=== PATIENT | female | born 1955 | race Caucasian/White ===

== ENCOUNTER 2020-12-20 15:15 | Outpatient (REF) | payer MEDICARE, MEDICAID, SELFPAY ==
--- NOTE | ~2020-12-20 | MM_ITS ---
EXAMINATION: MM SCREENING DIGITAL BREAST TOMOSYNTHESIS, BILATERAL CLINICAL INFORMATION: Screening. Asymptomatic. The lifetime risk of breast cancer based on the Tyrer-Cuzick Model is 11%. COMPARISON: Mammography: 08/03/2019, 06/20/2018, 02/06/2017 TECHNIQUE: Digital breast tomosynthesis is performed in both the craniocaudal and mediolateral oblique views along with computer-aided detection (CAD). Synthesized 2D images are generated from the tomosynthesis. FINDINGS: There are scattered areas of fibroglandular density (ACR BI-RADS breast composition Category b). There are no significant masses, abnormal calcifications, or other abnormalities. Parenchymal pattern is similar to prior exams. No developing density. Skin contours are smooth. There are 2 small stable circumscribed nodules mid inferior right breast. No significant changes. MM/MM tomosynthesis screening BI IMPRESSION: No mammographic evidence of malignancy. ASSESSMENT: BI-RADS 2: Benign RECOMMENDATION: Routine annual mammography screening. This patient's information was entered into a reminder system with a target due date for their next mammogram.
== END 2020-12-20 15:16 | disposition home or self-care (01) ==
LOC: HO.MAMMO 15:15
PROVIDERS: Visit Provider Internal Medicine
DX: Z12.31 Encounter for screening mammogram for malignant neoplasm of breast (principal)
CPT/HCPCS: 77063; 77067

== ENCOUNTER 2021-06-19 08:24 | Outpatient (REF) | payer MEDICARE, MEDICAID, SELFPAY ==
[2021-06-19 10:28] LABS: Hematocrit 46.1 % (37-47); Mean Corpuscular HGB Conc 32.5 g/dl (31.0-35.0); Mean Corpuscular Hemoglobin 29.1 pg (27.0-33.0); Mean Corpuscular Volume 89.3 fL (80-98); Mean Platelet Volume 10.3 fL (9.4-12.3); Platelet Count 306 X10*3/uL (160-400); Red Blood Count 5.16 X10*6/uL (4.20-5.50); White Blood Count 7.6 X10*3/uL (4.8-10.8)
[2021-06-19 10:59] LABS: Alanine Aminotransferase 10 U/L (0-31); Anion Gap 13 (12-20); Aspartate Amino Transferase 12 U/L (5-31); Bilirubin Total 0.4 mg/dL (0.0-1.0); Blood Urea Nitrogen 8 mg/dL (9-16); Calcium 9.3 mg/dL (8.4-10.2); Carbon Dioxide 30 mmol/L (22-29); Chloride 104 mmol/L (96-108); Estimated Glomerular Filt Rate > 60; Glucose Fasting 94 mg/dL (60-99); Potassium 4.6 mmol/L (3.3-5.1); Sodium 142 mmol/L (135-145); Total Protein 6.4 g/dL (6.5-8.0)
[2021-06-19 11:00] LABS: Alkaline Phosphatase 99 U/L (39-117); Cholesterol 197 mg/dL; HDL Cholesterol 45 mg/dL; LDL Cholesterol Calculated 120 mg/dl; Triglycerides 164 mg/dL
[2021-06-19 11:03] LABS: Estimated Average Glucose 123 mg/dL; Hemoglobin A1c % 5.9 %
[2021-06-19 11:32] LABS: TSH reflex Free T4 1.51 uIU/mL (0.32-4.0)
== END 2021-06-19 08:25 | disposition home or self-care (01) ==
LOC: HO.10HDL 08:24
PROVIDERS: Visit Provider General Practice
DX: I10 Essential (primary) hypertension (principal)
CPT/HCPCS: 36415; 80053; 80061; 83036; 84443; 85027

== ENCOUNTER → 2021-06-22 08:23 | Outpatient (REF) | payer MEDICARE, MEDICAID, SELFPAY ==
--- NOTE | 2021-06-22 08:27 | CA_ITS ---
Transthoracic Echocardiogram Patient (Last, First, Middle): Elena Storey E Gender: Female Date of : 1955 Age: 65 Procedure Date: 06/22/2021 Procedure Type: Transthoracic Echocardiogram Location: OP Height: 165.1 cm Weight: 82.56 kg BSA: 1.90 m2 Heart Rate: bpm BP: 138 / 78 mmHg Director Of Product Management: JOSHUA Referring MD: Dorothy Llanes NP Emergency Room Registered Nurse: Red Casper MD Symptoms: HEART MUMUR Study Quality: Technically Difficult ECG Rhythm: Sinus Conclusions: - 1. Normal LV systolic function with mild LVH with impaired relaxation filling pattern 2. Mild aortic stenosis and regurgitation 3. Mild mitral regurgitation 4. Normal RV systolic pressure 5. No pericardial effusion Findings Left Ventricle Normal left ventricular size and systolic function. There is mildly increased left ventricular wall thickness. The visually estimated ejection fraction is between 55-60%. Spectral Doppler is indicative of an impaired relaxation filling pattern. E/E prime ratio is between 8 and 15 consistent with indeterminate filling pressures. There is moderate septal asymmetric hypertrophy. Right Ventricle Normal right ventricular cavity size and systolic function. Atria The left atrium is normal in size. There is lipomatous hypertrophy of the interatrial septum. There is no evidence of interatrial shunt. The right atrium is normal in size. Aortic Valve The aortic valve was not well visualized. There is mild calcification of the aortic valve. There is mild aortic valve stenosis. There is mild aortic valve regurgitation. Mitral Valve There is mild anterior mitral leaflet thickening. There is mild mitral annular calcification. There is trace mitral valve regurgitation. There is no mitral valve stenosis. Pulmonic Valve The pulmonic valve was not well visualized. Tricuspid Valve Likely normal tricuspid valve structure and function. There is mild tricuspid valve regurgitation. The right ventricular systolic pressure is normal. The right ventricular systolic pressure is 26 mmHg. Normal right atrial pressure. There is no evidence of pulmonary hypertension. Great Vessels All visible segments of the aorta are normal in size. The pulmonary artery was not well visualized. Venous The inferior vena cava is normal in size and collapses greater than 50% with inspiration. Pericardium/Pleural There is no evidence of pericardial effusion. Prior Study Comparison No prior study available for comparison. Measurements 2D Linear Measurements IVSd: 1.45 0.6-0.9/0.6-1.0 cm LVIDd: 4.08 3.9-5.3/4.2-5.9 cm LVIDd Index: 2.15 2.4-3.2/2.2-3.1 cm/m2 LVIDs: 2.51 2.0-3.6 cm LVPWd: 1.05 0.7-1.1 cm LA Diam: 3.20 2.7-3.8/3.0-4.0 cm LAIDs Index: 1.68 1.5-2.3 cm/m2 LV Mass: 225.65 67-162/88-224 g LV Mass Index: 118.76 43-95/49-115 g/m2 LVOT Diam: 1.80 3.0+(-)1.3 cm 2D Systolic Function EF 4C: 56.10 >55% EF 2C: 61.40 >55% EF BiP: 58.70 >55% Mitral Valve MV Pk E: 1.06 MV PK A: 1.04 MV Decel Time: 192.00 E/A: 1.00 E'Lateral: 8.59 E'Medial: 7.29 E/E' Med: 14.50 E/E' Lat: 12.30 PHT: 56.00 MVA PHT: 3.93 Decel Pinal: 5.50 Aortic Valve AoV Pk Felix: 2.19 AoV Mn Felix: 1.60 AoV VTI: 0.47 AoV Pk Grad: 19.00 Aov Mn Grad: 11.00 RIGOBERTO Cont.VTI: 1.09 AI Pk Felix: 3.60 AI Pinal: 1.86 LVOT LVOT Pk Felix: 0.98 LVOT Mn Felix: 0.63 LVOT VTI: 0.20 LVOT Pk Grad: 4.00 LVOT Mn Grad: 2.00 LVOT Diam: 1.80 LVOT Area: 2.54 Diastolic Function MV Pk E: 1.06 MV Pk A: 1.04 E/A: 1.00 E'Medial: 7.29 E/E' Med: 14.50 E' Laterial: 8.59 E/E' Lat: 12.30 Right Ventricle TAPSE (mm): 2.48 Tricuspid Valve TR Pk Felix: 2.39 TR Pk Grad: 23.00 RA Press: 3.00 RVSP: 26.00 Great Vessels Aorta Ao Asc: 3.40 2.1-3.4 cm Updated in Other Vendor System with Status of Final Red Casper MD electronically signed on 06/22/2021 12:41:51 PM with status of Final
== END ==
LOC: HO.CARD 08:23
PROVIDERS: PCP General Practice; Visit Provider Nurse Practitioner Primary Care
DX: R01.1 Cardiac murmur, unspecified (principal)
CPT/HCPCS: 93306

== ENCOUNTER 2022-01-11 07:53 | Outpatient (REF) | payer MEDICARE, MEDICAID, SELFPAY ==
--- NOTE | ~2022-01-11 | MM_ITS ---
EXAMINATION: MM SCREENING DIGITAL BREAST TOMOSYNTHESIS, BILATERAL CLINICAL INFORMATION: Screening. Asymptomatic. Family history breast cancer, mother, maternal aunt. The lifetime risk of breast cancer based on the Tyrer-Cuzick Model is 11%. COMPARISON: Mammography: 12/20/2020, 08/03/2019, 06/20/2018 TECHNIQUE: Digital breast tomosynthesis is performed in both the craniocaudal and mediolateral oblique views along with computer-aided detection (CAD). Synthesized 2D images are generated from the tomosynthesis. FINDINGS: There are scattered areas of fibroglandular density (ACR BI-RADS breast composition Category b). There are no significant masses, abnormal calcifications, or other abnormalities. Parenchymal pattern is similar to prior studies. No developing density. No significant changes. MM/MM tomosynthesis screening BI IMPRESSION: No mammographic evidence of malignancy. ASSESSMENT: BI-RADS 2: Benign RECOMMENDATION: Routine annual mammography screening. This patient's information was entered into a reminder system with a target due date for their next mammogram.
== END 2022-01-11 07:54 | disposition home or self-care (01) ==
LOC: HO.MAMMO 07:53
PROVIDERS: PCP General Practice; Visit Provider General Practice
DX: Z12.31 Encounter for screening mammogram for malignant neoplasm of breast (principal)
CPT/HCPCS: 77063; 77067

== ENCOUNTER 2022-07-10 08:31 | Outpatient (REF) | payer MEDICARE, MEDICAID, SELFPAY ==
[2022-07-10 10:47] LABS: Alanine Aminotransferase 11 U/L (0-31); Alkaline Phosphatase 106 U/L (39-117); Anion Gap 13 (12-20); Aspartate Amino Transferase 12 U/L (5-31); Bilirubin Total 0.4 mg/dL (0.0-1.0); Blood Urea Nitrogen 8 mg/dL (9-16); Calcium 9.3 mg/dL (8.4-10.2); Carbon Dioxide 31 mmol/L (22-29); Chloride 103 mmol/L (96-108); Cholesterol 247 mg/dL; Estimated Glomerular Filt Rate > 60; Glucose Fasting 99 mg/dL (60-99); HDL Cholesterol 43 mg/dL; LDL Cholesterol Calculated 168 mg/dl; Potassium 4.7 mmol/L (3.3-5.1); Sodium 142 mmol/L (135-145); Total Protein 6.5 g/dL (6.5-8.0); Triglycerides 180 mg/dL
[2022-07-10 11:02] LABS: Estimated Average Glucose 117 mg/dL; Hemoglobin A1C 152.6626 umol/L; Hemoglobin A1c % 5.7 %
== END 2022-07-10 08:32 | disposition home or self-care (01) ==
LOC: HO.10HDL 08:31
PROVIDERS: Visit Provider General Practice
DX: E78.5 Hyperlipidemia, unspecified (principal); I10 Essential (primary) hypertension
CPT/HCPCS: 36415; 80053; 80061; 83036

== ENCOUNTER 2022-11-02 13:45 | Outpatient (REF) | payer MEDICARE, MEDICAID, SELFPAY ==
--- NOTE | ~2022-11-02 | CT_ITS ---
EXAMINATION: CT CHEST SCREENING CLINICAL INFORMATION: Smoker one pack per day 50 years. COMPARISON: Chest x-ray 06/23/2015 TECHNIQUE: Multidetector volumetric CT imaging of the chest is performed without contrast using low dose technique. Additional 2D coronal and sagittal reformatted images and axial 3D maximum intensity projection (MIP) images are generated on the CT workstation. This CT examination was performed using dose optimization techniques as appropriate, variously including the following: *Automated exposure control *Adjustment of mA and/or kV according to patient size (this includes techniques or standardized protocols for targeted exams where dose is matched to indication/reason for exam; i.e. extremities or head) *Use of iterative reconstruction technique DLP: 59 mGy-cm FINDINGS: LUNGS: The lungs are well-expanded and clear of acute pneumonic process. No pulmonary nodules, mass or consolidation seen. Minimal atelectatic changes or scarring seen in the lingula. MEDIASTINUM: The thyroid lobes are symmetric and normal. The central trachea and the bronchi widely patent. Heart size and the great vessels are normal caliber. Small shotty lymph nodes are seen in the mediastinum. No pericardial effusion seen. CORONARY ARTERY CALCIFICATION: Trace coronary artery calcifications are visualized. PLEURA: There is no pleural effusion, thickening or calcification. AXILLA: There are small shotty bilateral axillary lymph nodes.. UPPER ABDOMEN: Visualized liver, spleen, pancreas and right adrenal glands are unremarkable. There is a left adrenal 1.9 cm lesion measuring 0.91 Hounsfield units, likely benign. OSSEOUS STRUCTURES: Bone windows reveal no gross bony abnormality seen. CT/CT lung screening IMPRESSION: Unremarkable CT chest exam. ASSESSMENT: Lung-RADS category 1, benign RECOMMENDATION: Low-dose annual CT chest
== END 2022-11-02 13:46 | disposition home or self-care (01) ==
LOC: HO.CT 13:45
PROVIDERS: Visit Provider Physician Assistant Medical
DX: F17.210 Nicotine dependence, cigarettes, uncomplicated (principal)
CPT/HCPCS: 71271; G0296

== ENCOUNTER 2023-01-17 07:57 | Outpatient (REF) | payer MEDICARE, MEDICAID, SELFPAY ==
--- NOTE | ~2023-01-17 | MM_ITS ---
EXAMINATION: MM SCREENING DIGITAL BREAST TOMOSYNTHESIS, BILATERAL CLINICAL INFORMATION: Screening. Asymptomatic. The lifetime risk of breast cancer based on the Tyrer-Cuzick Model is 10.1%. COMPARISON: Mammography: January 11, 2022 and studies dating back to May 11, 2015 TECHNIQUE: Digital breast tomosynthesis is performed in both the craniocaudal and mediolateral oblique views along with computer-aided detection (CAD). Synthesized 2D images are generated from the tomosynthesis. FINDINGS: The breasts are heterogeneously dense, which may obscure small masses (ACR BI-RADS breast composition Category c). There are no significant masses, abnormal calcifications, or other abnormalities. MM/MM tomosynthesis screening BI IMPRESSION: No significant changes from prior exam. ASSESSMENT: BI-RADS 1: Negative RECOMMENDATION: Routine annual mammography screening. This patient's information was entered into a reminder system with a target due date for their next mammogram.
== END 2023-01-17 07:58 | disposition home or self-care (01) ==
LOC: HO.MAMMO 07:57
PROVIDERS: PCP General Practice; Visit Provider General Practice
DX: Z12.31 Encounter for screening mammogram for malignant neoplasm of breast (principal)
CPT/HCPCS: 77063; 77067

== ENCOUNTER 2023-04-05 07:50 | Outpatient (REF) | payer MEDICARE, MEDICAID, SELFPAY ==
--- NOTE | 2023-04-05 | PFT_ITS ---
Forced vital capacity is 62%, FEV1 45%, FEV1/FVC ratio is 56. [id number] 21% and MVV is 40%. Post bronchodilator therapy, there is a slight improvement in [id number]. Total lung capacity 91%. Residual volume 115%. DLCO of 54% CONCLUSION: Severe obstructive airway disorder. Minimal improvement after bronchodilator therapy is noted. Clinical correlation recommended. MD LARISA Burciaga/JOAN / [id number]
== END 2023-04-05 07:51 | disposition home or self-care (01) ==
LOC: HO.RESP 07:50
PROVIDERS: PCP General Practice; Visit Provider General Practice
DX: J44.9 Chronic obstructive pulmonary disease, unspecified (principal)
CPT/HCPCS: 94060; 94727; 94729

== ENCOUNTER → 2023-04-05 08:00 | Outpatient (BNV) | payer MEDICARE, MEDICAID, SELFPAY | PROVIDERS: PCP General Practice; Visit Provider Internal Medicine | DX: J44.9 Chronic obstructive pulmonary disease, unspecified (principal) | CPT/HCPCS: 94060; 94727; 94729 ==

== ENCOUNTER 2023-04-08 10:53 | Outpatient (REF) | payer MEDICARE, MEDICAID, SELFPAY | END 2023-04-08 10:54 | disposition home or self-care (01) | LOC: HO.HHCX 10:53 | PROVIDERS: Visit Provider Emergency Medicine | DX: J44.1 Chronic obstructive pulmonary disease with (acute) exacerbation (principal); Z20.822 Contact with and (suspected) exposure to COVID-19 | CPT/HCPCS: 71046; 87636 ==

== ENCOUNTER 2023-04-08 20:22 | Outpatient (REF) | payer MEDICARE, MEDICAID, SELFPAY | END 2023-04-08 20:23 | disposition home or self-care (01) | LOC: HO.HHCLNP 20:22 | PROVIDERS: Visit Provider Emergency Medicine | DX: Z13.89 Encounter for screening for other disorder (principal) | CPT/HCPCS: 87636 ==

== ENCOUNTER 2023-11-11 11:49 | Outpatient (REF) | payer MEDICARE, MEDICAID, SELFPAY ==
--- NOTE | ~2023-11-11 | XR_ITS ---
EXAMINATION: XR CHEST CLINICAL INFORMATION: COPD. COMPARISON: None available. TECHNIQUE: 2 views of the chest were obtained. FINDINGS: Mild hyperinflation of the lungs, consistent with reported history of COPD. No focal infiltrate, effusion, pneumothorax is seen. The heart appears normal in size. The mediastinum and bones appear unremarkable. Mildly atherosclerotic, uncoiled aorta, raising the possibility of hypertension. XR/XR chest 2V IMPRESSION: No acute finding.
== END 2023-11-11 11:50 | disposition home or self-care (01) ==
LOC: HO.HHCX 11:49
PROVIDERS: Visit Provider Registered Nurse
DX: J44.1 Chronic obstructive pulmonary disease with (acute) exacerbation (principal)
CPT/HCPCS: 71046

== ENCOUNTER 2023-11-27 10:30 | Outpatient (REF) | payer MEDICARE, MEDICAID, SELFPAY ==
--- NOTE | ~2023-11-27 | CT_ITS ---
EXAMINATION: CT CHEST LOW-DOSE SCREENING WITHOUT CONTRAST HISTORY: Asymptomatic patient meeting criteria for lung screening. No history of lung carcinoma. PATIENT PACK-YEAR HISTORY: 52 Current Smoker: Yes If former smoker, years since quitting: Not applicable COMPARISON: CT lung screening on 11/02/2022 Multidetector volumetric non-contrast CT imaging of the chest was obtained on a Siemens Definition 64 scanner using low-dose screening CT technique. Axial thin section 0.625 mm reformations in soft tissue and lung windows were obtained. Sagittal and coronal reformations were obtained. Axial MIP images were also created and reviewed. RECONSTRUCTED WIDTH: 1.25 mm x 1.[address] examination was performed using dose optimization techniques as appropriate, variously including the following: *Automated exposure control *Adjustment of mA and/or kV according to patient size (this includes techniques or standardized protocols for targeted exams where dose is matched to indication/reason for exam; i.e. extremities or head) *Use of iterative reconstruction technique TOTAL EXAM DLP: 46.17 mGy-cm CTDIvol: 1.08 mGy FINDINGS: LUNGS: Lungs bilaterally symmetrically expanded. No effusion or pneumothorax. Central airways patent. -Nodule #1 (Series 6, image 232): 5.1 mm solid nodule, left lower lobe superior segment, previously 5 mm. -Nodule #2 (Series 6, image 390): 3.8 mm solid nodule, lateral pleural border of left lower lobe lateral basal segment, previously not present. -At least one micronodule (nodule measuring less than 4 mm) is present without interval change. LYMPHATIC STRUCTURES: No mediastinal, hilar or axillary adenopathy or free fluid collection. THYROID GLAND: Unremarkable to the extent seen. CARDIOVASCULAR STRUCTURES: Aortic and heart size normal. Mild coronary artery calcifications. No pericardial effusion. UPPER ABDOMEN: Unchanged left adrenal benign adenoma measuring 1.5 x 2.2 cm in size, mean attenuation of 1.1 Hounsfield units. OSSEOUS STRUCTURES: No suspicious focal findings. SPINAL COMPRESSION: Absent. CT/CT lung screening IMPRESSION: No findings suspicious for malignancy/pulmonary nodule(s)/other. LUNG-RADS CATEGORY ASSESSMENT: 2: Benign INCIDENTAL FINDINGS (S CATEGORY): Finding: No incidental findings. Significance category: Normal or normal variant. RECOMMENDATION: Low dose lung CT. overall in 1 year. Visual estimate of coronary calcified plaque burden: Mild. However, this exam cannot replace a dedicated cardiac CT calcium score for accurate assessment.
== END 2023-11-27 10:31 | disposition home or self-care (01) ==
LOC: HO.CT 10:30
PROVIDERS: PCP General Practice; Visit Provider Physician Assistant Medical
DX: Z12.2 Encounter for screening for malignant neoplasm of respiratory organs (principal); F17.210 Nicotine dependence, cigarettes, uncomplicated
CPT/HCPCS: 71271

== ENCOUNTER 2024-01-20 09:00 | Outpatient (REF) | payer MEDICARE, MEDICAID, SELFPAY ==
[2024-01-20 11:35] LABS: MANUAL DIFF FLAG NO
[2024-01-20 11:54] LABS: Basophils Percent Auto 0.6 % (0-2); Eosinophils Absolute Auto 0.2 X10*3/uL (0.0-0.4); Eosinophils Percent Auto 2.4 % (0-4); Hematocrit 47.9 % (37.0-47.0); Hemoglobin 15.4 g/dl (12.0-16.0); Imm Gran Abs Auto 0.01 X10*3/uL (0.00-0.03); Imm Gran Pct Auto 0.1 % (0.0-0.4); Lymphocytes Absolute Auto 2.9 X10*3/uL (1.2-4.9); Lymphocytes Percent Auto 40.9 % (20-40); Mean Corpuscular HGB Conc 32.2 g/dl (31.0-35.0); Mean Corpuscular Hemoglobin 28.8 pg (27.0-33.0); Mean Corpuscular Volume 89.7 fL (80.0-98.0); Mean Platelet Volume 10.5 fL (9.4-12.3); Monocytes Absolute Auto 0.4 X10*3/uL (0.1-1.2); Monocytes Percent Auto 6.1 % (2-11); Neutrophils Absolute Auto 3.5 x10*3/uL (2.0-8.3); Neutrophils Percent Auto 49.9 % (45-73); Platelet Count 308 X10*3/uL (160-400); Red Blood Count 5.34 X10*6/uL (4.20-5.50); Red Cell Distribution Width 13.6 % (11.0-16.0); White Blood Count 7.1 X10*3/uL (4.8-10.8)
[2024-01-20 12:24] LABS: Cholesterol 202 mg/dL (<200); HDL Cholesterol 52 mg/dL (>40); LDL Cholesterol Calculated 123 mg/dL (<100); Triglycerides 137 mg/dL (<150)
== END 2024-01-20 09:01 | disposition home or self-care (01) ==
LOC: HO.HHCL 09:00
PROVIDERS: Visit Provider General Practice
DX: E78.49 Other hyperlipidemia (principal); L65.9 Nonscarring hair loss, unspecified
CPT/HCPCS: 36415; 80061; 85025

== ENCOUNTER 2024-01-21 09:29 | Outpatient (REF) | payer MEDICARE, MEDICAID, SELFPAY ==
--- NOTE | ~2024-01-21 | MM_ITS ---
EXAMINATION: MM SCREENING DIGITAL BREAST TOMOSYNTHESIS, BILATERAL CLINICAL INFORMATION: Screening. Asymptomatic. Family history of breast cancer in mother, maternal aunt. COMPARISON: Mammography: 01/17/2023, 01/11/2022, 12/20/2020, 08/03/2019, 06/20/2018 TECHNIQUE: Digital breast tomosynthesis is performed in both the craniocaudal and mediolateral oblique views along with computer-aided detection (CAD). Synthesized 2D images are generated from the tomosynthesis. A second right MLO full-field view was provided. FINDINGS: The breasts are heterogeneously dense, which may obscure small masses (ACR BI-RADS breast composition Category c). Parenchyma is borderline category B. There are 2 stable small circumscribed nodules in the mid inferior right breast, and 6:00 axis left breast. There are no suspicious masses, suspicious grouped calcifications, or areas of architectural distortion in either breast. The parenchymal pattern is stable from prior exams. No skin or axillary abnormalities. MM/MM tomosynthesis screening BI IMPRESSION: No mammographic evidence of malignancy. ASSESSMENT: BI-RADS BI-RADS 2 - Benign Findings RECOMMENDATION: Routine annual mammography screening. 1 year F/U This examination should not preclude the clinical evaluation of a suspicious palpable abnormality. This patient's information was entered into a reminder system with a target due date for their next mammogram.
== END 2024-01-21 09:30 | disposition home or self-care (01) ==
LOC: HO.MAMMO 09:29
PROVIDERS: PCP General Practice; Visit Provider General Practice
DX: Z12.31 Encounter for screening mammogram for malignant neoplasm of breast (principal)
CPT/HCPCS: 77063; 77067

== ENCOUNTER → 2024-01-21 09:45 | Outpatient (BNV) | payer MEDICARE, MEDICAID, SELFPAY | PROVIDERS: PCP General Practice; Visit Provider Radiology Diagnostic Radiology | DX: Z12.31 Encounter for screening mammogram for malignant neoplasm of breast (principal) | CPT/HCPCS: 77063; 77067 ==

== ENCOUNTER 2024-02-17 09:53 | Outpatient (AMB) | payer MEDICARE, MEDICAID, SELFPAY ==
--- NOTE | 2024-02-17 09:58 | A.OFFVIS_ITS ---
Vital Signs 02/17/24 10:01 Height 5 ft 4 in Weight 160 lb 14.999 oz BMI 27.6 BP 146/78 H Blood Pressure Location Rt brachial Position Sitting Pulse 72 Pulse Source Pulse Oximeter Pulse Oximetry (%) 94 Oxygen Delivery Method Room Air Intake Visit Reasons: copd Allergies sulfamethoxazole [From BACTRIM DS] Allergy (Unknown, Unverified 02/17/24 10:04) UNKNOWN trimethoprim [From BACTRIM DS] Allergy (Unknown, Unverified 02/17/24 10:04) UNKNOWN HPI HPI copd: Details: Elena is a pleasant 68 year old female, current smoker with 30 pack year history with underlying COPD, HTN and hyperlipidemia. She was referred by PCP for pulmonary evaluation. She has been moderately controlled on Breo 100 mcg, ventolin MDI and atrovent MDI. Today she reports worsening control over the last two weeks with increased dyspnea, producitve cough with white sputum, wheezing and chest tightness. She reports symptoms started with increased allergic symptoms with no recent allergy testing. She denies any recent need for prednisone or antibiotics. She had PFT last year, report below. She is a part of the lung cancer screening program, full report below. She reports father, smoker, with lung cancer. She denies any occupational exposures. [facility] Medical History (Updated 02/17/24 @ 11:31 by Denise Tirado LPN) Nicotine dependence, cigarettes, uncomplicated Heart murmur Vitamin D deficiency Macular degeneration COPD (chronic obstructive pulmonary disease) HLD (hyperlipidemia) HTN (hypertension) Surgical History (Updated 10/30/22 @ 13:37 by Nohelia Colvin PA-C) History of endoscopy Family History (Updated 11/02/22 @ 13:33 by Nohelia Colvin PA-C) Father Lung cancer Social History (Updated 02/17/24 @ 10:04 by Francesca Mcginnis CMA) Patient Tobacco Use Status: Current everyday Tobacco user Tobacco use type: Cigarette Cigarettes Per Day: 8 Years Smoked: onset 17yo, 1/2ppd-1ppd x 51yrs, 30phy Review of Systems Const Denies chills, Denies excessive sweating, Denies fever(s) and Denies night sweats Eyes Denies dry eyes and Denies irritation ENT Reports Normal hearing present and Denies sore throat Card Denies chest pain, Denies chest pain at rest, Denies chest pain with activity, Denies claudication, Denies leg edema, Denies orthopnea and Denies paroxysmal nocturnal dyspnea Resp Denies chest congestion, Denies excessive phlegm production, Denies pain on inspiration, Denies pain with cough and Denies stridor Musc Denies myalgias Neuro Reports Normal hearing present Endo Denies excessive sweating Sid/Lymph Denies lymphadenopathy Aller/Immun Denies seasonal rhinorrhea Physical Exam Vital Signs: Last Vital Signs Pulse 72 02/17/24 10:01 BP 146/78 H 02/17/24 10:01 Pulse Ox 94 02/17/24 10:01 Oxygen Delivery Method Room Air 02/17/24 10:01 BMI result Body Mass Index 27.6 Const General: cooperative, no acute distress, well developed and alert Nutritional Appearance: obese Orientation/consciousness: patient oriented x3 Limitations: no limitations HEENT Head: Yes normal to inspection, Yes normocephalic and Yes atraumatic Ears: hearing grossly normal bilaterally and external ears normal Eyes General: appearance normal, both eyes and all related structures Sclerae: sclerae normal EOM: EOMs intact bilaterally Neck Neck: Yes normal visual inspection and Yes no lymphadenopathy Lymphatic: no lymphadenopathy noted Chest Chest palpation & inspection: normal inspection of the chest Resp Effort & Inspection: normal respiratory effort, able to speak in complete sentences, no audible wheezes, Actively coughing Quality: actively coughing, no stridor, not tachypneic, no tripod positioning and no use of accessory muscles Auscultation: wheezes and diminished lung sounds Cardio Jugular venous distension: no JVD Rate: regular rate Rhythm: regular rhythm Skin Other: warm, dry General skin exam: no rashes or lesions noted Neuro General: patient oriented x3 Cranial nerves: Yes Normal hearing present Cognition (Neuro): normal cognition Gait exam (Neuro): Normal gait present Extrem General: Yes normal to inspection, Yes capillary refill normal, Yes no clubbing, cyanosis or edema and Yes no pedal edema Psych Appearance: grossly normal and well kempt Speech and movement: Normal speech and movement present and Clear speech present Affect: normal affect Attitude: cooperative Thought process: Normal thought process present Thought content: Normal thought content present Insight: Good insight present (Psych) Judgement: Good judgement present (Psych) Office Procedures Nebulizer Treatment Nebulizer Treatment 29533-Pnenaugdp/MDI RX initial, or Nebulizer Subsequent Treatment Office Meds ipratropium 0.5 mg-albuterol 3 mg (2.5 mg base)/3 mL nebulization mary Performing Provider: Serene Rose NP Performing Location: [facility] Administered by: Denise Tirado LPN on 02/17/24 11:31 Dose Route Admin Location Dispensed Lot Number Expiration Date [facility] Packaging Assembler 3 mL inhalation 3 mL [id number] 07/30/25 08355-917-52 Givit Results Reviewed Results Reviewed: [address] [address] [address] Scan Report Signed Patient: Elena Storey MR#: [id number] : 1955 Acct:[id number] Age/Sex: 67 / F ADM Date: 11/27/23 Loc: .CT Attending Dr: Nohelia Colvin PA-C Ordering Physician: Serene Rose NP Date of Service: 11/27/23 Procedure(s): CT lung screening Accession Number(s): [id number] cc: Melisa Watkins; Serene Rose NP~ EXAMINATION: CT CHEST LOW-DOSE SCREENING WITHOUT CONTRAST HISTORY: Asymptomatic patient meeting criteria for lung screening. No history of lung carcinoma. PATIENT PACK-YEAR HISTORY: 52 Current Smoker: Yes If former smoker, years since quitting: Not applicable COMPARISON: CT lung screening on 11/02/2022 [address]idetector volumetric non-contrast CT imaging of the chest was obtained on a Siemens Definition 64 scanner using low-dose screening CT technique. Axial thin section 0.625 mm reformations in soft tissue and lung windows were obtained. Sagittal and coronal reformations were obtained. Axial MIP images were also created and reviewed. RECONSTRUCTED WIDTH: 1.25 mm x 1.[address] examination was performed using dose optimization techniques as appropriate, variously including the following: *Automated exposure control *Adjustment of mA and/or kV according to patient size (this includes techniques or standardized protocols for targeted exams where dose is matched to indication/reason for exam; i.e. extremities or head) *Use of iterative reconstruction technique TOTAL EXAM DLP: 46.17 mGy-cm CTDIvol: 1.08 mGy FINDINGS: LUNGS: Lungs bilaterally symmetrically expanded. No effusion or pneumothorax. Central airways patent. -Nodule #1 (Series 6, image 232): 5.1 mm solid nodule, left lower lobe superior segment, previously 5 mm. -Nodule #2 (Series 6, image 390): 3.8 mm solid nodule, lateral pleural border of left lower lobe lateral basal segment, previously not present. -At least one micronodule (nodule measuring less than 4 mm) is present without interval change. LYMPHATIC STRUCTURES: No mediastinal, hilar or axillary adenopathy or free fluid collection. THYROID GLAND: Unremarkable to the extent seen. CARDIOVASCULAR STRUCTURES: Aortic and heart size normal. Mild coronary artery calcifications. No pericardial effusion. UPPER ABDOMEN: Unchanged left adrenal benign adenoma measuring 1.5 x 2.2 cm in size, mean attenuation of 1.1 Hounsfield units. OSSEOUS STRUCTURES: No suspicious focal findings. SPINAL COMPRESSION: Absent. CT/CT lung screening IMPRESSION: No findings suspicious for malignancy/pulmonary nodule(s)/other. LUNG-RADS CATEGORY ASSESSMENT: 2: Benign INCIDENTAL FINDINGS (S CATEGORY): Finding: No incidental findings. Significance category: Normal or normal variant. RECOMMENDATION: Low dose lung CT. overall in 1 year. Visual estimate of coronary calcified plaque burden: Mild. However, this exam cannot replace a dedicated cardiac CT calcium score for accurate assessment. Dictated By: Allan Suarez Signed By: <Electronically signed by Allan Suarez in OV> 11/28/23 1554 DD/ 1134 TD/TT: Rn Chemical Dependency: Assessment & Plan Assessment & Plan (1) COPD (chronic obstructive pulmonary disease): Code(s): J44.9 - Chronic obstructive pulmonary disease, unspecified Category: Medical (2) Environmental allergies: Code(s): Z91.09 - Other allergy status, other than to drugs and biological substances Category: Medical (3) Nicotine dependence, cigarettes, uncomplicated: Comment: (current smoker - onset 17yo, 1/2ppd-1ppd x 49yrs, 30phy, +fam hx lung ca) Code(s): F17.210 - Nicotine dependence, cigarettes, uncomplicated Category: Medical Plan Elena's symptoms are likely related to underlying COPD. PFT revealed severe COPD with DLCO 54%. Chest CT revealed multiple nodules <5 mm. Will have repeat chest CT in one year with the lung cancer screening program. At this time, patient presents with COPD exacerbation, will treat with zpak and prednisone. Patient also notes significant post nasal drip, will trial ipratropium nasal spray Will also send for RAST to assess for allergic component. At baseline, patient report good control of symptoms on Breo. Will consider increasing switching to Trelegy. All questions were answered and patient is in agreement of plan. Will follow up in 4 weeks or sooner if needed. Orders: Orders Resp Allergy Profile Region I 02/17/24 Z.09 - Other allergy status, other than to drugs and biological substances Complete Blood Count Auto Diff 02/17/24 Z. - Other allergy status, other than to drugs and biological substances AMB Nebulizer Treatment 02/17/24 J44.9 - Chronic obstructive pulmonary disease, unspecified Immunoglobulin E 02/17/24 Z. - Other allergy status, other than to drugs and biological substances Medications: New ipratropium bromide administer into each nostril 1 spray intranasal BID 30 mL 0RF ipratropium-albuterol 0.5 mg-3 mg(2.5 mg base)/3 mL 3 mL inhalation BID PRN 180 mL 0RF wheezing azithromycin For 250 mg dose pack: take 500 mg today (day 1), then 250 mg for 4 days (days 2-5) PO 6 tabs 0RF prednisone 40 mg (2 x 20 mg) PO DAILY 10 tabs 0RF Coding Level of Care Code New Pt Level 4 (57127) Diagnoses COPD (chronic obstructive pulmonary disease) J44.9 Environmental allergies Z91.09 Nicotine dependence, cigarettes, uncomplicated F17.210 CPT Codes Nebulizer Treatment - Nebulizer Treatment, initial or subsequent: 93407- Nebulizer/MDI RX initial, or Nebulizer Subsequent Treatment ([id number])
[2024-02-17 10:01] VITALS: BP 146/78; PULSE 72; O2SAT 94; BMI 27.6
== END 2024-02-17 11:07 | disposition home or self-care (01) ==
PROVIDERS: PCP General Practice; Visit Provider Nurse Practitioner Family
DX: J44.9 Chronic obstructive pulmonary disease, unspecified (principal); Z91.09 Other allergy status, other than to drugs and biological substances; F17.210 Nicotine dependence, cigarettes, uncomplicated
CPT/HCPCS: 99204

== ENCOUNTER 2024-02-17 09:53 | Outpatient (REF) | payer MEDICARE, MEDICAID, SELFPAY ==
[2024-02-17 11:26] LABS: MANUAL DIFF FLAG NO
[2024-02-17 11:52] LABS: Basophils Percent Auto 0.4 % (0-2); Eosinophils Absolute Auto 0.2 X10*3/uL (0.0-0.4); Eosinophils Percent Auto 1.9 % (0-4); Hematocrit 46.1 % (37.0-47.0); Hemoglobin 15.4 g/dl (12.0-16.0); Imm Gran Abs Auto 0.02 X10*3/uL (0.00-0.03); Imm Gran Pct Auto 0.2 % (0.0-0.4); Lymphocytes Absolute Auto 2.8 X10*3/uL (1.2-4.9); Lymphocytes Percent Auto 31.4 % (20-40); Mean Corpuscular HGB Conc 33.4 g/dl (31.0-35.0); Mean Corpuscular Volume 89.9 fL (80.0-98.0); Monocytes Absolute Auto 0.5 X10*3/uL (0.1-1.2); Neutrophils Absolute Auto 5.5 x10*3/uL (2.0-8.3); Neutrophils Percent Auto 61.1 % (45-73); Platelet Count 280 X10*3/uL (160-400); Red Blood Count 5.13 X10*6/uL (4.20-5.50); Red Cell Distribution Width 13.2 % (11.0-16.0)
[2024-02-19 22:04] LABS: Class Alternaria alternata 0; Class Aspergillus fumigatus 0; Class Bermuda Grass 0; Class Birch 0; Class Cat Dander 0; Class Cladosporium herbarum 0; Class Cockroach 0; Class Common Ragweed 0; Class Cottonwood 0; Class Derm. pterony 0; Class Dermatophagoides farinae 0; Class Dog Dander 0; Class Elm 0; Class Maple Box Elder 0; Class Mountain Cedar 0; Class Mouse Urine Protein 0; Class Mugwort 0; Class Oak 0; Class Penicillium crysogenum 0; Class Rough Pigweed 0; Class Sheep Sorrel 0; Class Sycamore 0; Class Timothy Grass 0; Class Walnut Tree 0; Class White Ash 0; Class White Mulberry 0; D001 IgE D pteronyssinus <0.10 kU/L; D002 - IgE D farinae <0.10 kU/L; E001 - IgE Cat Dander <0.10 kU/L; E005 - IgE Dog Dander <0.10 kU/L; E072-IgE Mouse Urine <0.10 kU/L; G002 IgE Bermuda Grass <0.10 kU/L; G006 - IgE Timothy Grass <0.10 kU/L; I006-IgE Cockroach, German <0.10 kU/L; Immunoglobulin E 27 kU/L (<OR=114); M001 IgE Penicillium chrysogen <0.10 kU/L; M002 - IgE Cladosporium herbar <0.10 kU/L; M003 - IgE Aspergillus fumigat <0.10 kU/L; M006 - IgE Alternaria alternat <0.10 kU/L; T001 IgE Maple/Box Elder <0.10 kU/L; T003 IgE Common Silver Birch <0.10 kU/L; T006 - IgE Cedar, Mountain <0.10 kU/L; T007 - IgE Oak, White <0.10 kU/L; T008 IgE Elm, American <0.10 kU/L; T010 - IgE Walnut <0.10 kU/L; T011 - IgE Maple Leaf Sycamore <0.10 kU/L; T014 - IgE Cottonwood <0.10 kU/L; T015 - IgE Ash, White <0.10 kU/L; T070 - IgE White Mulberry <0.10 kU/L; W001 - IgE Ragweed, Short <0.10 kU/L; W006 - IgE Mugwort <0.10 kU/L; W014 IgE Pigweed, Common <0.10 kU/L; W018 IgE Sheep Sorrel <0.10 kU/L
== END 2024-02-17 09:54 | disposition home or self-care (01) ==
LOC: HO.LAB 09:53
PROVIDERS: PCP General Practice; Visit Provider Nurse Practitioner Family
DX: J44.9 Chronic obstructive pulmonary disease, unspecified (principal); F17.210 Nicotine dependence, cigarettes, uncomplicated; Z91.09 Other allergy status, other than to drugs and biological substances
CPT/HCPCS: 36415; 82785; 85025; 86003; 94640; 99202

== ENCOUNTER 2024-03-16 09:35 | Outpatient (AMB) | payer MEDICARE, MEDICAID, SELFPAY ==
[2024-03-16 09:42] VITALS: BP 130/78; PULSE 67; O2SAT 95; BMI 27.8
--- NOTE | 2024-03-16 09:42 | A.OFFVIS_ITS ---
Vital Signs 03/16/24 09:42 Height 5 ft 4 in Weight 162 lb 0.636 oz BMI 27.8 BP 130/78 Blood Pressure Location Lt brachial Position Sitting Pulse 67 Pulse Source Pulse Oximeter Pulse Oximetry (%) 95 Oxygen Delivery Method Room Air Intake Visit Reasons: COPD Allergies sulfamethoxazole [From BACTRIM DS] Allergy (Unknown, Unverified 03/16/24 09:45) UNKNOWN trimethoprim [From BACTRIM DS] Allergy (Unknown, Unverified 03/16/24 09:45) UNKNOWN HPI HPI COPD: Details: Elena is a pleasant 68 year old female, current smoker with 30 pack year history with underlying COPD, HTN and hyperlipidemia. She was referred by PCP for pulmonary evaluation. She has been suboptimally controlled on Breo 100 mcg, ventolin MDI and atrovent MDI. At the last visit, she was given prednisone and a zpak for bronchitic symptoms. She reports symptoms have improved however continues with dyspnea, productive cough with clear to white sputum and intermittent wheezing. She also reports PND contributing to symptom with improvement using ipratropium nasal spray. She did report nasal irritation, instructed to decrease to once per day. [facility] Medical History (Updated 02/17/24 @ 11:31 by Denise Tirado LPN) Nicotine dependence, cigarettes, uncomplicated Heart murmur Vitamin D deficiency Macular degeneration COPD (chronic obstructive pulmonary disease) HLD (hyperlipidemia) HTN (hypertension) Surgical History (Updated 10/30/22 @ 13:37 by Nohelia Colvin PA-C) History of endoscopy Family History (Updated 11/02/22 @ 13:33 by Nohelia Colvin PA-C) Father Lung cancer Social History (Updated 03/16/24 @ 09:45 by Francesca Mcginnis CMA) Patient Tobacco Use Status: Current everyday Tobacco user Tobacco use type: Cigarette Cigarettes Per Day: 6 Years Smoked: onset 17yo, 1/2ppd-1ppd x 49yrs, 30phy Review of Systems Const Denies chills, Denies excessive sweating, Denies fever(s) and Denies night sweats Eyes Denies dry eyes and Denies irritation ENT Reports Normal hearing present and Denies sore throat Card Denies chest pain, Denies chest pain at rest, Denies chest pain with activity, Denies claudication, Denies leg edema, Denies orthopnea and Denies paroxysmal nocturnal dyspnea Resp Denies chest congestion, Denies excessive phlegm production, Denies pain on inspiration, Denies pain with cough and Denies stridor Musc Denies myalgias Neuro Reports Normal hearing present Endo Denies excessive sweating Sid/Lymph Denies lymphadenopathy Aller/Immun Denies seasonal rhinorrhea Physical Exam Vital Signs: Last Vital Signs Pulse 67 03/16/24 09:42 BP 130/78 03/16/24 09:42 Pulse Ox 95 03/16/24 09:42 Oxygen Delivery Method Room Air 03/16/24 09:42 BMI result Body Mass Index 27.8 Const General: cooperative, no acute distress, well developed and alert Nutritional Appearance: obese Orientation/consciousness: patient oriented x3 Limitations: no limitations HEENT Head: Yes normal to inspection, Yes normocephalic and Yes atraumatic Ears: hearing grossly normal bilaterally and external ears normal Eyes General: appearance normal, both eyes and all related structures Sclerae: sclerae normal EOM: EOMs intact bilaterally Neck Neck: Yes normal visual inspection and Yes no lymphadenopathy Lymphatic: no lymphadenopathy noted Chest Chest palpation & inspection: normal inspection of the chest Resp Other: Diminished lung sounds with faint expiratory wheezes, improved with DuoNeb Effort & Inspection: normal respiratory effort, able to speak in complete sentences, no audible wheezes, no stridor, not tachypneic, no tripod positioning and no use of accessory muscles Auscultation: wheezes and diminished lung sounds Cardio Jugular venous distension: no JVD Rate: regular rate Rhythm: regular rhythm Skin Other: warm, dry General skin exam: no rashes or lesions noted Neuro General: patient oriented x3 Cranial nerves: Yes Normal hearing present Cognition (Neuro): normal cognition Gait exam (Neuro): Normal gait present Extrem General: Yes normal to inspection, Yes capillary refill normal, Yes no clubbing, cyanosis or edema and Yes no pedal edema Psych Appearance: grossly normal and well kempt Speech and movement: Normal speech and movement present and Clear speech present Affect: normal affect Attitude: cooperative Thought process: Normal thought process present Thought content: Normal thought content present Insight: Good insight present (Psych) Judgement: Good judgement present (Psych) Assessment & Plan Assessment & Plan (1) COPD (chronic obstructive pulmonary disease): Code(s): J44.9 - Chronic obstructive pulmonary disease, unspecified Category: Medical (2) Environmental allergies: Code(s): Z91.09 - Other allergy status, other than to drugs and biological substances Category: Medical (3) Nicotine dependence, cigarettes, uncomplicated: Comment: (current smoker - onset 17yo, 1/2ppd-1ppd x 49yrs, 30phy, +fam hx lung ca) Code(s): F17.210 - Nicotine dependence, cigarettes, uncomplicated Category: Medical Plan Elena reports suboptimal control on Breo, will discontinue Breo and trial Trelegy. She reports good effect with ipratropium nasal spray, advised to continue and monitor for signs of nasal irritation. On exam patient with significantly diminished lung sounds and expiratory wheezes throughout improved with DuoNeb. At prior visit patient was given a prescription of DuoNeb however this was not filled, reached out to pharmacy and confirmed that this medication will be given to patient. Advised patient to discontinue Atrovent in use DuoNeb in its place. All questions were answered and patient is in agreement of plan. Will follow up to review response to Trelegy or sooner if needed. Medications: New rbbxnovaxxn-nkgkqaodd-ydxkbudr 200-62.5-25 mcg (Trelegy Ellipta) 1 inh inhalation DAILY 60 ea 6RF azclfttzrol-iykuzcupc-gcahieih 200-62.5-25 mcg (Trelegy Ellipta) 1 inh inhalation DAILY 60 ea 6RF J44.9 - Chronic obstructive pulmonary disease, unspecified Coding Level of Care Code Est Pt Level 4 (79184) Diagnoses COPD (chronic obstructive pulmonary disease) J44.9 Environmental allergies Z91.09 Nicotine dependence, cigarettes, uncomplicated F17.210
== END 2024-03-16 10:38 | disposition home or self-care (01) ==
PROVIDERS: PCP General Practice; Visit Provider Nurse Practitioner Family
DX: J44.9 Chronic obstructive pulmonary disease, unspecified (principal); Z91.09 Other allergy status, other than to drugs and biological substances; F17.210 Nicotine dependence, cigarettes, uncomplicated
CPT/HCPCS: 99214

== ENCOUNTER → 2024-03-16 09:35 | Outpatient (BNVA) | payer MEDICARE, MEDICAID, SELFPAY | PROVIDERS: PCP General Practice; Visit Provider Nurse Practitioner Family | DX: J44.9 Chronic obstructive pulmonary disease, unspecified (principal); Z91.09 Other allergy status, other than to drugs and biological substances; F17.210 Nicotine dependence, cigarettes, uncomplicated | CPT/HCPCS: 99212 ==

== ENCOUNTER 2024-03-31 12:57 | Outpatient (REF) | payer MEDICARE, MEDICAID, SELFPAY ==
[2024-03-31 14:56] LABS: Bacterial Vaginosis PCR NEGATIVE (Negative); Candida Group PCR NOT DETECTED (Not Detect); Candida glab krusei PCR DETECTED (Not Detect); Trichomonas vaginalis PCR NOT DETECTED (Not Detect)
== END 2024-03-31 12:58 | disposition home or self-care (01) ==
LOC: HO.HHCLNP 12:57
PROVIDERS: Visit Provider General Practice
DX: Z12.4 Encounter for screening for malignant neoplasm of cervix (principal)
CPT/HCPCS: 0352U; 87625; 88175

== ENCOUNTER 2024-05-25 09:34 | Outpatient (AMB) | payer MEDICARE, MEDICAID, SELFPAY ==
--- NOTE | 2024-05-25 08:35 | MHC.OFFVIS ---
Vital Signs 05/25/24 09:45 Height 5 ft 4 in Weight 163 lb 2.273 oz BMI 28.0 BP 138/74 Blood Pressure Location Rt brachial Position Sitting Pulse 70 Pulse Source Pulse Oximeter Pulse Oximetry (%) 94 Oxygen Delivery Method Room Air Intake Visit Reasons: COPD Allergies sulfamethoxazole [From BACTRIM DS] Allergy (Unknown, Unverified 05/25/24 09:48) UNKNOWN trimethoprim [From BACTRIM DS] Allergy (Unknown, Unverified 05/25/24 09:48) UNKNOWN HPI HPI COPD: Details: Elena is a pleasant 68 year old female, current smoker with 30 pack year history with underlying COPD, HTN and hyperlipidemia. At the last visit she reported suboptimal effect with Trelegy and DuoNeb was added to regimen. She has been using PRN with good control of respiratory symptoms as well as ipratropium nasal spray. She denies any use of albuterol MDI. She denies any visits to urgent care or hospitalizations since the last visit. Of note, she has upcoming visit with ENT for sinusitis/otitis. [facility] Medical History (Updated 02/17/24 @ 11:31 by Denise Tirado LPN) Nicotine dependence, cigarettes, uncomplicated Heart murmur Vitamin D deficiency Macular degeneration COPD (chronic obstructive pulmonary disease) HLD (hyperlipidemia) HTN (hypertension) Surgical History (Updated 10/30/22 @ 13:37 by Nohelia Colvin PA-C) History of endoscopy Family History (Updated 11/02/22 @ 13:33 by Nohelia Colvin PA-C) Father Lung cancer Social History Patient Tobacco Use Status: Current everyday Tobacco user Tobacco use type: Cigarette Cigarettes Per Day: 6 Years Smoked: onset 17yo, 1/2ppd-1ppd x 49yrs, 30phy Review of Systems Const Denies chills, Denies excessive sweating, Denies fever(s) and Denies night sweats Eyes Denies dry eyes and Denies irritation ENT Reports Normal hearing present and Denies sore throat Card Denies chest pain, Denies chest pain at rest, Denies chest pain with activity, Denies claudication, Denies leg edema, Denies orthopnea and Denies paroxysmal nocturnal dyspnea Resp Denies chest congestion, Denies excessive phlegm production, Denies pain on inspiration, Denies pain with cough and Denies stridor Musc Denies myalgias Neuro Reports Normal hearing present Endo Denies excessive sweating Sid/Lymph Denies lymphadenopathy Aller/Immun Denies seasonal rhinorrhea Physical Exam Vital Signs: Last Vital Signs Pulse 70 05/25/24 09:45 BP 138/74 05/25/24 09:45 Pulse Ox 94 05/25/24 09:45 Oxygen Delivery Method Room Air 05/25/24 09:45 BMI result Body Mass Index 28.0 Const General: cooperative, no acute distress, well developed and alert Nutritional Appearance: obese Orientation/consciousness: patient oriented x3 Limitations: no limitations HEENT Head: Yes normal to inspection, Yes normocephalic and Yes atraumatic Ears: hearing grossly normal bilaterally and external ears normal Eyes General: appearance normal, both eyes and all related structures Sclerae: sclerae normal EOM: EOMs intact bilaterally Neck Neck: Yes normal visual inspection and Yes no lymphadenopathy Lymphatic: no lymphadenopathy noted Chest Chest palpation & inspection: normal inspection of the chest Resp Effort & Inspection: normal respiratory effort, able to speak in complete sentences, no audible wheezes, no stridor, not tachypneic, no tripod positioning and no use of accessory muscles Auscultation: wheezes and diminished lung sounds Cardio Jugular venous distension: no JVD Rate: regular rate Rhythm: regular rhythm Skin Other: warm, dry General skin exam: no rashes or lesions noted Neuro General: patient oriented x3 Cranial nerves: Yes Normal hearing present Cognition (Neuro): normal cognition Gait exam (Neuro): Normal gait present Extrem General: Yes normal to inspection, Yes capillary refill normal, Yes no clubbing, cyanosis or edema and Yes no pedal edema Psych Appearance: grossly normal and well kempt Speech and movement: Normal speech and movement present and Clear speech present Affect: normal affect Attitude: cooperative Thought process: Normal thought process present Thought content: Normal thought content present Insight: Good insight present (Psych) Judgement: Good judgement present (Psych) Assessment & Plan Assessment & Plan (1) COPD (chronic obstructive pulmonary disease): Code(s): J44.9 - Chronic obstructive pulmonary disease, unspecified Category: Medical (2) Environmental allergies: Code(s): Z91.09 - Other allergy status, other than to drugs and biological substances Category: Medical (3) Nicotine dependence, cigarettes, uncomplicated: Comment: (current smoker - onset 17yo, 1/2ppd-1ppd x 49yrs, 30phy, +fam hx lung ca) Code(s): F17.210 - Nicotine dependence, cigarettes, uncomplicated Category: Medical Plan Elena reports good control of respiratory symptoms, advised to continue. All questions were answered and patient is in agreement of plan. Will follow up in three months or sooner if needed. Coding Level of Care Code Est Pt Level 3 (24374) Diagnoses COPD (chronic obstructive pulmonary disease) J44.9 Environmental allergies Z91.09 Nicotine dependence, cigarettes, uncomplicated F17.210
[2024-05-25 09:45] VITALS: BP 138/74; PULSE 70; O2SAT 94; BMI 28.0
== END 2024-05-25 10:32 | disposition home or self-care (01) ==
PROVIDERS: PCP General Practice; Visit Provider Nurse Practitioner Family
DX: J44.9 Chronic obstructive pulmonary disease, unspecified (principal); Z91.09 Other allergy status, other than to drugs and biological substances; F17.210 Nicotine dependence, cigarettes, uncomplicated
CPT/HCPCS: 99213

== ENCOUNTER → 2024-05-25 09:34 | Outpatient (BNVA) | payer MEDICARE, MEDICAID, SELFPAY | PROVIDERS: PCP General Practice; Visit Provider Nurse Practitioner Family | DX: Z91.09 Other allergy status, other than to drugs and biological substances (principal); J44.9 Chronic obstructive pulmonary disease, unspecified; F17.210 Nicotine dependence, cigarettes, uncomplicated | CPT/HCPCS: 99212 ==

== ENCOUNTER 2024-07-10 08:45 | Outpatient (REF) | payer MEDICARE, MEDICAID, SELFPAY ==
--- NOTE | 2024-07-10 14:01 | MHC.AU.HA1 ---
Hearing Aid Evaluation Date of Visit: 07/10/24 Historical Information: Description of Hearing: Within normal sloping to mild to moderate sensorineural hearing loss bilateral. Current personal amplification information, if applicable: None. Summary: Recently seen for evaluation at ENT, received medical clearance for hearing aids, ready to proceed with amplification. Notes difficulty hearing grandchildren, frustrated by this. Discussed benefits and limitations of amplification, adjustment to amplification. Recommended RITE style. Elena selected battery operated style. She is not interested in any streaming connections. Otoscopy clear Au. Hearing Aid Prescription: Based on the individual?s shared listening needs, communication environments, dexterity, desire for connectivity, and personal preferences, the following prescription for amplification has been made: Right ear: Make, Model, Color: Oticon Real 2 R chroma beige Battery Size: 312 Track Inspector/Slim Tube: 2 85 Type of Earmold/Dome/CShell/SlimTip: 6mm open sorenson Left ear: Make, Model, Color: Oticon Real 2 R chroma beige Battery Size: 312 Track Inspector/Slim Tube: 2 85 Type of Earmold/Dome/CShell/SlimTip: 6mm open sorenson Plan of Care: Patient wishes to purchase hearing aids as prescribed Action Taken/Action Needed: Hearing Instrument Fitting to be scheduled when materials arrive Primary Diagnosis: H90.3 Bilateral Sensorineural Hearing Loss Signature: Provider: David Pickett, [facility]
== END 2024-07-10 08:46 | disposition home or self-care (01) ==
LOC: HO.HAP 08:45
PROVIDERS: Visit Provider Otolaryngology
DX: Z46.1 Encounter for fitting and adjustment of hearing aid (principal); H90.3 Sensorineural hearing loss, bilateral
CPT/HCPCS: 92591

== ENCOUNTER 2024-08-10 09:45 | Outpatient (AMB) | payer MEDICARE, MEDICAID, SELFPAY ==
--- NOTE | 2024-08-10 08:47 | MHC.OFFVIS ---
Vital Signs 08/10/24 09:51 Height 5 ft 4 in Weight 168 lb 10.458 oz BMI 28.9 BP 138/84 Blood Pressure Location Lt brachial Position Sitting Pulse 69 Pulse Source Pulse Oximeter Pulse Oximetry (%) 94 Oxygen Delivery Method Room Air Intake Visit Reasons: COPD Allergies sulfamethoxazole [From BACTRIM DS] Allergy (Unknown, Unverified 08/10/24 09:57) UNKNOWN trimethoprim [From BACTRIM DS] Allergy (Unknown, Unverified 08/10/24 09:57) UNKNOWN HPI HPI COPD: Details: Elena is a pleasant 68 year old female, current smoker with 30 pack year history with underlying COPD, HTN and hyperlipidemia. She reports moderate control with Trelegy and DuoNeb. She continues to report productive cough with whitish sputum and dyspnea, however improved on current regimen. She denies any use of albuterol MDI. She denies any visits to urgent care or hospitalizations since the last visit. She was evaluated by ENT for sinusitis/otitis and reports deviated septum on the right, and will obtain bilateral hearing aids. [facility] Medical History (Updated 08/10/24 @ 12:44 by Serene Rose NP) Nicotine dependence, cigarettes, uncomplicated Heart murmur Vitamin D deficiency Macular degeneration COPD (chronic obstructive pulmonary disease) HLD (hyperlipidemia) HTN (hypertension) Surgical History (Updated 10/30/22 @ 13:37 by Nohelia Colvin PA-C) History of endoscopy Family History (Updated 11/02/22 @ 13:33 by Nohelia Colvin PA-C) Father Lung cancer Social History Patient Tobacco Use Status: Current everyday Tobacco user Tobacco use type: Cigarette Cigarettes Per Day: 6 Years Smoked: onset 17yo, 1/2ppd-1ppd x 49yrs, 30phy Review of Systems Const Denies chills, Denies excessive sweating, Denies fever(s) and Denies night sweats Eyes Denies dry eyes and Denies irritation ENT Reports Normal hearing present and Denies sore throat Card Denies chest pain, Denies chest pain at rest, Denies chest pain with activity, Denies claudication, Denies leg edema, Denies orthopnea and Denies paroxysmal nocturnal dyspnea Resp Denies chest congestion, Denies excessive phlegm production, Denies pain on inspiration, Denies pain with cough and Denies stridor Musc Denies myalgias Neuro Reports Normal hearing present Endo Denies excessive sweating Sid/Lymph Denies lymphadenopathy Aller/Immun Denies seasonal rhinorrhea Physical Exam Vital Signs: Last Vital Signs Pulse 69 08/10/24 09:51 BP 138/84 08/10/24 09:51 Pulse Ox 94 08/10/24 09:51 Oxygen Delivery Method Room Air 08/10/24 09:51 BMI result Body Mass Index 28.9 Const General: cooperative, no acute distress, well developed and alert Nutritional Appearance: obese Orientation/consciousness: patient oriented x3 Limitations: no limitations HEENT Head: Yes normal to inspection, Yes normocephalic and Yes atraumatic Ears: hearing grossly normal bilaterally and external ears normal Eyes General: appearance normal, both eyes and all related structures Sclerae: sclerae normal EOM: EOMs intact bilaterally Neck Neck: Yes normal visual inspection and Yes no lymphadenopathy Lymphatic: no lymphadenopathy noted Chest Chest palpation & inspection: normal inspection of the chest Resp Effort & Inspection: normal respiratory effort, able to speak in complete sentences, no audible wheezes, no stridor, not tachypneic, no tripod positioning and no use of accessory muscles Auscultation: diminished lung sounds Cardio Jugular venous distension: no JVD Rate: regular rate Rhythm: regular rhythm Skin Other: warm, dry General skin exam: no rashes or lesions noted Neuro General: patient oriented x3 Cranial nerves: Yes Normal hearing present Cognition (Neuro): normal cognition Gait exam (Neuro): Normal gait present Extrem General: Yes normal to inspection, Yes capillary refill normal, Yes no clubbing, cyanosis or edema and Yes no pedal edema Psych Appearance: grossly normal and well kempt Speech and movement: Normal speech and movement present and Clear speech present Affect: normal affect Attitude: cooperative Thought process: Normal thought process present Thought content: Normal thought content present Insight: Good insight present (Psych) Judgement: Good judgement present (Psych) Assessment & Plan Assessment & Plan (1) COPD (chronic obstructive pulmonary disease): Code(s): J44.9 - Chronic obstructive pulmonary disease, unspecified Category: Medical (2) Environmental allergies: Code(s): Z91.09 - Other allergy status, other than to drugs and biological substances Category: Medical (3) Nicotine dependence, cigarettes, uncomplicated: Comment: (current smoker - onset 17yo, 1/2ppd-1ppd x 49yrs, 30phy, +fam hx lung ca) Code(s): F17.210 - Nicotine dependence, cigarettes, uncomplicated Category: Medical (4) Multiple pulmonary nodules: Code(s): R91.8 - Other nonspecific abnormal finding of lung field Category: Medical Plan Elena reports good control of respiratory symptoms, advised to continue. Will also send in flutter valve to improve expectoration. Smoking cessation reviewed, patient not ready to quit at this time. Patient has chest CT ordered from prior visit to be performed in 10/2024 as she continues to smoke. All questions were answered and patient is in agreement of plan. Will follow up in 3-6 months or sooner if needed. Coding Level of Care Code Est Pt Level 4 (31020) Diagnoses COPD (chronic obstructive pulmonary disease) J44.9 Environmental allergies Z91.09 Nicotine dependence, cigarettes, uncomplicated F17.210 Multiple pulmonary nodules R91.8
[2024-08-10 09:51] VITALS: BP 138/84; PULSE 69; O2SAT 94; BMI 28.9
== END 2024-08-10 10:36 | disposition home or self-care (01) ==
PROVIDERS: PCP General Practice; Visit Provider Nurse Practitioner Family
DX: J44.9 Chronic obstructive pulmonary disease, unspecified (principal); Z91.09 Other allergy status, other than to drugs and biological substances; F17.210 Nicotine dependence, cigarettes, uncomplicated; R91.8 Other nonspecific abnormal finding of lung field
CPT/HCPCS: 99214

== ENCOUNTER → 2024-08-10 09:45 | Outpatient (BNVA) | payer MEDICARE, MEDICAID, SELFPAY | PROVIDERS: PCP General Practice; Visit Provider Nurse Practitioner Family | DX: J44.9 Chronic obstructive pulmonary disease, unspecified (principal); R91.8 Other nonspecific abnormal finding of lung field; F17.210 Nicotine dependence, cigarettes, uncomplicated; Z91.09 Other allergy status, other than to drugs and biological substances | CPT/HCPCS: 99212 ==

== ENCOUNTER 2024-08-14 08:57 | Outpatient (REF) | payer MEDICARE, MEDICAID, SELFPAY ==
--- NOTE | 2024-08-14 13:10 | MHC.AU.HA2 ---
Hearing Instrument Fitting- Adult- Binaural Date of Visit: 08/14/24 Hearing Instruments Dispensed: Right Ear: Make, Model, Color, Serial Number: Oticon Real 2 R chroma beige [id number] [employer] Repair Warranty: 08/28/2027 [employer] Loss and Damage Warranty: 08/28/2027 [facility] Service Plan: 08/14/2025 Battery Size: 312 Receptionist Clerk/Slim Tube: 2 85 Earmold/Dome/CShell/SlimTip: 6mm open sorenson Type of Wax Guard: Oticon Prowax Left Ear: Make, Model, Color, Serial Number: Oticon Real 2 R chroma beige [id number] [employer] Rep[employer] Warranty: 08/28/2027 [employer] Loss and Damage Warranty: 08/28/2027 [facility] Service Plan: 08/14/2025 Battery Size: 312 Receptionist Clerk/Slim Tube: 2 85 Earmold/Dome/CShell/SlimTip: 6mm open sorenson Type of Wax Guard: Oticon Prowax Summary of Fitting: Fit with and oriented to binaural Oticon Real 2 312 HAs. Verified to L adult 5 targets. Set to adaptation 1 with gradual increase. Counseled on adjustment to amplification. VC disabled at this time. Reviewed maintenance, precautions, battery procedures. Practiced insertion and removal. Recommendations: Recommendations: Hearing instrument care and maintenance were discussed and practiced. A hearing instrument follow-up was scheduled. Diagnosis Code(s): Primary Diagnosis: H90.3 Bilateral Sensorineural Hearing Loss Signature: Provider: David Pickett, [facility]
== END 2024-08-14 08:58 | disposition home or self-care (01) ==
LOC: HO.HAP 08:57
PROVIDERS: Visit Provider Otolaryngology
DX: Z46.1 Encounter for fitting and adjustment of hearing aid (principal); H90.3 Sensorineural hearing loss, bilateral
CPT/HCPCS: V5011; V5020; V5160; V5261; V5266

== ENCOUNTER 2024-09-04 08:24 | Outpatient (REF) | payer MEDICARE, MEDICAID, SELFPAY ==
--- NOTE | 2024-09-04 15:28 | MHC.AU.HA3 ---
Hearing Instrument Follow-Up- Binaural Date of Visit: 09/04/24 Right Ear: Make, Model, Color, Serial Number: Oticon Real 2 R chroma beige [id number] [employer] Repair Warranty: 08/28/2027 [employer] Loss and Damage Warranty: 08/28/2027 [facility] Service Plan: 08/14/2025 Battery Size: 312 Shuttler Car/Slim Tube: 2 85 Earmold/Dome/CShell/SlimTip:6mm open sorenson Type of Wax Guard: Oticon Prowax minifit Dispensed By: [facility] Date of Fittin08/14/24 Left Ear: Make, Model, Color, Serial Number: Oticon Real 2 R chroma beige [id number] [employer] Warranty: 08/28/2027 [employer] Loss and Damage Warranty: 08/28/2027 [facility] Service Plan: 08/14/2025 Battery Size: 312 Shuttler Car/Slim Tube: 2 85 Earmold/Dome/CShell/SlimTip: 6mm open sorenson Type of Wax Guard: Oticon Prowax minift Dispensed By: [facility] Date of Fittin08/14/24 Follow-Up Summary: Seen for follow up. Reports good satisfaction with the hearing aids. Reports hearing her son and grandchildren better. Notes batteries only seem to last a couple days. Reports left ear felt sore when she first wore the hearing aids, was worried she might be getting an ear infection. Noticed her left tray service worker was not fully inserted into canal upon arrival today, reinstructed on correct insertion. Otoscopy clear. Advised to return to explore fit options if discomfort persists- she is currently in the smallest Oticon dome. Advised to consult PCP if concerns about ear infection persist. Discussed expected battery life. Reminded to make sure doors are open when hearing aids are not in use. Advised to let batteries breath for a couple minutes after removing sticker. Suggested placing the hearing aid stickers on the calendar to track how long batteries are lasting and return if concern persists. Reviewed maintenance procedures. Recommendations: Recommendations: Hearing instrument maintenance in 6 months, or sooner if needed. Please contact our clinic with any questions or concerns. Diagnosis Code(s): Primary Diagnosis: H90.3 Bilateral Sensorineural Hearing Loss Signature: Provider: David Pickett, CCC-A
--- OUTSIDE RECORDS SUMMARY | 2024-09-09 05:28 | XMS_ITS | Continuity of Care Document ---
Author Organization [place] - [facility], [facility] Address [address] [place] [address] Care Team Providers Care Pharmacy Picking Tech Name Role Phone JENNIFER SALDAÑA Primary Care Provider Assessment Encounter Date Assessment Date Assessment LastModified by Organization Details LastModified Time 06/26/2024 06/26/2024 Patient with 9 months of left ear fullness and pressure. She has a sensation of sinus congestion but no improvement with nasal steroids. Reports negative allergy testing. She has upper and lower denture plates which she feels fit normal. Examination shows no middle ear fluid but a tender left TMJ. No oral or base of tongue lesions. Audiometric testing reviewed Audiometric testing shows mild high-frequency hearing loss. Consider amplification. [email or web address] Not available 06/26/2024 15:59:43 Plan of Treatment Reminders Order Date Submit Date Provider Last Modified By Organization Details Last Modified Time Details Appointments None record ed. Lab None record ed. Referral None record ed. Procedures None record ed. Surgeries None record ed. Imaging None record ed. Medication Orders None record ed. Patient TargetsNo targets recorded. Patient InstructionsNo instructions recorded. Reason for Referral None Reported. Results Created Date Observation Date Name Description Value Unit Range Abnormal Flag Note LastModifiedBy Organization Detail LastModifiedTime 06/29/20 24 audio gram No observ ation record ed. BARCODE Not Available 2023 14:48:43 Result Notes None recorded. Problems Name Problem SNOMED Code Status Onset Date Resolution Date Notes Provider Name and Address Organization Details Recorded Time Otalgia of left ear 9783511330 Active 2023 ARMANI PATE MD [address] [place], [address], [facility] - [facility] [place] 4 14:48:26 Chronic rhinitis 81057460 Active 2023 ARMANI PATE MD 100 [facility],[address], [place], [address], [facility] - [facility] [place] 4 14:48:31 Abnormal auditory perception 80371760 Active 2023 ARMANI PATE MD 100 [facility],[address], [place], [address], [facility] - [facility] [place] 4 14:48:44 Sensorineur al hearing loss of bilateral ears 922203976 Active 2023 BONNIE ELLIOTT MA, CCC-A 100 [facility],[address], [place], [address], [facility] - [facility] [place] 4 15:25:11 Nasal obstruction 603934467 Active 2023 IVETH MCWILLIAMS MD 100 [facility],[address], [place], [address], [facility] - [facility] 4 11:50:55 Incompetenc e of nasal valve 636244505 Active 2023 IVETH MCWILLIAMS MD 100 [facility],[address], [place], [address], [facility] - [facility] [place] 4 11:51:01 Stenosis of nasal valve 2483926468639 4106 Active 2023 IVETH MCWILLIAMS MD 100 [facility],[address], [place], [address], [facility] - [facility] [place] 4 11:52:18 Bilateral dermatochal asis of upper eyelids Active 2023 IVETH MCWILLIMAS MD 100 [facility],[address], [place], [address], [facility] - [facility] [place] 4 11:52:24 Problem Notes None recorded. Procedures Surgical History Date Name Laterality Status Provider Name and Address Organization Details Recorded Time Nasal Endoscopy completed IVETH MCWILLIAMS MD [address] [place] [address], [phone], [facility] 07/28/2024 11:37:39 Comp Audio with Tymps (14642 & 59139) completed BONNIE ELLIOTT MA, CCC-A [address], [address], [facility] 06/26/2024 15:25:00 Imaging Results None recorded. Procedure Notes None recorded. Medical Equipment None Reported. Allergies Allergen ID Allergen Name Allergen Category Reaction Reaction Severity Criticality Documentation Date Start Date Code Code System Note Provider Name and Address Organization Details Recorded Time 333683 Substance with sulfonami de structure and antibacte rial mechanism of action (substanc e) medicatio n Not available Not available Not available 06/26/2024 01266 8003 SNOMED Radha rios [facility] 4 14:30:21 Medications Name Sig Start Date Stop Date Status Note LastModified by Organization Details LastModified Time ipratropium 0.5 mg-albutero l 3 mg (2.5 mg base)/3 mL nebulizatio n soln INHALE 1 AMPULE USING A NEBULIZER TWICE DAILY NEEDED FOR WHEEZING active Not Available Not Available No t Available albuterol sulfate 2.5 mg/3 mL (0.083 %) solution for nebulizatio n INHALE 1 AMPULE USING A NEBULIZER EVERY TWELVE HOURS NEEDED active Not Available Not Available No t Available cetirizine 10 mg tablet TAKE 1 TABLET BY MOUTH EVERY DAY active Not Available Not Available No t Available azithromyci n 250 mg tablet TAKE 2 TABLETS BY MOUTH ON DAY 1, THEN TAKE 1 TABLET DAILY ON DAYS 2-5 06/26 completed Not Available Not Available Not Available ibuprofen 800 mg tablet TAKE 1 TABLET BY MOUTH THREE TIMES DAILY NEEDED active Not Available Not Available No t Available fluconazole 150 mg tablet TAKE 1 TABLET ONCE. MAY REPEAT IN 72 HOURS IF SYMPTOMS CONTINUE 06/26 completed Not Available Not Available Not Available prednisone 20 mg tablet TAKE 2 TABLETS BY MOUTH EVERY DAY 06/26 completed Not Available Not Available Not Available ofloxacin 0.3 % ear drops PLACE 5 DROPS IN THE LEFT EAR TWICE DAILY FOR 10 DAYS 06/26 completed Not Available Not Available Not Available simvastatin 20 mg tablet TAKE 1 TABLET BY MOUTH EVERY EVENING active Not Available Not Available No t Available lisinopril 10 mg tablet TAKE 1 TABLET BY MOUTH EVERY DAY active Not Available Not Available No t Available omeprazole 20 mg capsule,del ayed release TAKE 1 CAPSULE BY MOUTH EVERY DAY BEFORE BREAKFAST active Not Available Not Available No t Available cefdinir 300 mg capsule TAKE 1 CAPSULE BY MOUTH TWICE DAILY 06/26 completed Not Available Not Available Not Available fluticasone propionate 50 mcg/actuati on nasal spray,suspe nsion INSTILL 2 SPRAYS IN EACH NOSTRIL ONCE DAILY IN THE MORNING 06/26 completed Not Available Not Available Not Available ipratropium bromide 21 mcg (0.03 %) nasal spray [place] 2 sprays twice a day by intranasa l route. active Not Available Not Available No t Available amoxicillin 875 mg-potassiu m clavulanate 125 mg tablet TAKE 1 TABLET BY MOUTH TWICE DAILY FOR 10 DAYS 06/26 completed Not Available Not Available Not Available Ventolin HFA 90 mcg/actuati on aerosol inhaler INHALE 2 PUFFS BY MOUTH EVERY 4 TO 6 HOURS NEEDED 06/26 completed Not Available Not Available Not Available simethicone 80 mg chewable tablet CHEW AND SWALLOW 1 TABLET BY MOUTH FOUR TIMES DAILY active Not Available Not Available No t Available Atrovent HFA 17 mcg/actuati on aerosol inhaler INHALE 2 PUFFS BY MOUTH FOUR TIMES DAILY NEEDED 06/26 completed Not Available Not Available Not Available Vitamin D3 50 mcg (2,000 unit) capsule TAKE 1 CAPSULE BY MOUTH EVERY DAY active Not Available Not Available No t Available Breo Ellipta 100 mcg-25 mcg/dose powder for inhalation INHALE 1 PUFF BY MOUTH EVERY DAY AT THE SAME TIME RINSE MOUTH AFTER USING. DO NOT SWALLOW 06/26 completed Not Available Not Available Not Available Trelegy Ellipta 200 mcg-62.5 mcg-25 mcg powder for inhalation INHALE 1 PUFF BY MOUTH EVERY DAY AT THE SAME TIME active Not Available Not Available No t Available Vitals Date Recorded Body height Body weight Provider Name and Address Organization Details Last Updated DateTime 06/26/2024 164.47 cm 99689.74 g Radha Goetz [place] - [facility] 06/26/2024 14:34:56 Social History Question Answer Notes LastModified by Organizat ion Details LastModified Time Tobacco Smoking Status Current Every Day Smoker Radha rios [place] - [facility] 06/26/2024 14:32:27 What Is Your Level Of Alcohol Consumption? Occasional Rare Information not available 06/26/2024 What Is Your Current Pack Years? 20-29packyears Information not available 06/26/2024 How Many Years Have You Smoked Tobacco? 50 Information not available 06/26/2024 Sex: Unknown Functional Status None recorded. Mental Status None recorded. Family History Nothing Reported. Medical History Condition Response Hyperlipidemia Y Hypertension Y COPD Y Gynecological HistoryNo gynecological history recorded. Obstetrics History GPAL:G 0 P 0 0 0 0 Past Encounters Encounter ID Performer Location Encounter Start Date Encounter Closed Date Diagnosis/Indication Diagnosis SNOMED-CT Code Diagnosis ICD10 Code [id number] ARMANI ACUNA MD [facility] [address] [address] 06/26/2024 14:17:11 06/29/2024 07:54:19 Otalgia of left ear 7595569433 H92.02 Chronic rhinitis 9063281 6 J31.0 Abnormal a uditory perception 46680266 H93.292 [id number] BONNIE ELLIOTT MA, [facility] [address] [address] 06/26/2024 15:24:19 06/29/2024 07:55:13 Sensorineural hearing loss of bilateral ears 312884574 H90.3 Health Concerns Section Related Observation LastModified by Organization Detai ls LastModified Time None Recorded Concern Status LastModified by Organization Details LastModified Time None Recorded Payers Encounter Date Sequence Insurance Name Policy Number Policy [place] Covered Member ID [place] Member ID Guarantor Name 06/26/2024 1 [place] [employer] Elena Storey [id number] Elena Storey 06/26/2024 2 [place] [facility] Elena Storey [id number] Elena Storey Notes Date Note Type Note Provider Name and Address Organization Details Recorded Time 06/26/2024 text/html Hx of COPD. Feel wind blowing in left ear intermittently with updrafts. Reports ear pressure and infections on left. Feels sinus pressure radiating to ears. No known hx of migraineHx of skin testing for allergy being negative. Denies eating, drinking, or swallowing difficultiesNo change with fluticasone or ipratropium bromide SNOT= 15Nose= 40 ARMANI MACDONALD MD [address] [place] [address], [phone], [place] - [facility] 06/26/2024 16:34:45 OBGyn Episode No OBEpisode recorded.
--- OUTSIDE RECORDS SUMMARY | 2024-09-09 05:28 | XMS_ITS | Data Portability ---
Author Organization [place] - [facility], Allergy Address [address] [place] [phone] Care Team Providers Care Signal Tower Operator Name Role Phone JENNIFER SALDAÑA Primary Care [...] Consider amplification. [email or web address] Not available 06/26/2024 15:59:43 07/28/2024 07/28/2024 1. Nasal obstruction 2. Nasal valve collapse 68-year-old woman who presents today for evaluation for nasal valve collapse and nasal obstruction. This has been present her whole life, and is bilateral. She has tried alternative therapy including nasal sprays and oral allergy medication. She reports her nasal breathing is 7 out of 10 on both sides. On exam she has bilateral nasal valve collapse with a right septal deviation leading to more than 75% obstruction of the right nasal cavity. We discussed management of nasal obstruction including observation, nasal sprays, oral allergy medications, Breathe Right strips, nasal cones, and then surgery. As she is not significantly bothered by her symptoms, I would not recommend surgery at this time. She is a candidate anatomically. She also smokes half pack a day, and she would need to discontinue smoking prior to any surgical consideration. For now she would like to continue her current medical management and follow-up as needed or interested for consideration of surgery. 3. Dermatochalasis She has good ocular health, but she does have vision restriction due to floppy eyelids or dermatochalasis. We talked about the option of functional blepharoplasty to help with this. She would need to stop smoking prior to any consideration of surgery. She will think about this and follow-up if she is interested in surgery to help with her vision. [email or web address] Not available 07/28/2024 11:50:50 Plan of Treatment Reminders Order Date Submit [...] Details Recorded Time Otalgia of left ear 1086259106 Active 2023 ARMANI PATE MD [address] [place] [address], [place]elaida yañ[place], [address], [facility] - [facility] 4 14:48:26 Chronic rhinitis 69391803 Active 2023 ARMANI PATE MD [address] [place] [address], [place]elaida yañ[place], [address], [facility] - [facility] 4 14:48:31 Abnormal auditory perception 69400570 Active 2023 ARMANI PATE MD [address] [place] [address], [place], [address], [facility] - [facility] 4 14:48:44 Sensorineur al hearing loss of bilateral ears 291854541 Active 2023 BONNIE ELLIOTT MA, CCC-A [address] [place] [address], [place]elaida yañ[place], [address], [facility] - [facility] 4 15:25:11 Nasal obstruction 933827117 Active 2023 IVETH MCWILLIAMS MD [address] [facility], [facility] [place], [address], [facility] - [facility] 4 11:50:55 Incompetenc e of nasal valve 397265827 Active 2023 IVETH MCWILLIAMS MD [address] [facility], [facility] [place], [address], [facility] - [facility] 4 11:51:01 Stenosis of nasal valve 7168270960423 4106 Active 2023 IVETH MCWILLIMAS MD [address] [facility] 100, [facility] [place], [address], [facility] 4 11:52:18 Bilateral dermatochal asis of upper eyelids Active 2023 IVETH MCWILLIAMS MD [address] [facility] 100, [facility] [place], [address], [facility] 4 11:52:24 Problem Notes None recorded. Procedures Surgical History Date Name Laterality Status Provider Name and Address Organization Details Recorded Time Nasal Endoscopy completed IVETH MCWILLIAMS MD [address] [place] [address], [phone], [facility] 07/28/2024 11:37:39 Comp Audio with Tymps (70704 & 55766) completed BONNIE ELLIOTT MA, CCC-A [address] [facility],[place] [address], [place], [address], [facility] - [facility] 06/26/2024 15:25:00 Imaging Results Imaging Date Name Status LastModified by Organiz ation Details LastModified Time 06/29/2024 audiogram completed BARCODE Information no t available 06/29/2024 14:48:43 Procedure Notes None recorded. Medical Equipment None Reported. Allergies Allergen ID Allergen Name Allergen Category Reaction Reaction Severity Criticality Documentation Date Start Date Code Code System Note Provider Name and Address Organization Details Recorded Time 914011 Substance with sulfonami de structure and antibacte rial mechanism of action (substanc e) medicatio n Not available Not available Not available 06/26/2024 34084 8003 SNOMED Radha rios [place] - [facility] 4 14:30:21 Medications Name Sig Start Date [...] bromide 21 mcg (0.03 %) nasal spray [employer] 2 sprays twice a day by intranasa l route. active Not Available Not Available No t Available amoxicillin 875 mg-zullyu m clavulanate 125 mg tablet TAKE 1 [...] Details Last Updated DateTime 06/26/2024 164.47 cm 16059.74 g Radha Goetz MA [facility] 06/26/2024 14:34:56 Date Recorded Body height Body weight Provider Name and Address Organization Details Last Updated DateTime 07/28/2024 164.47 cm 69721.74 g Radha Goetz MA [facility] 07/28/2024 08:28:02 Social History Question Answer Notes LastModified by Organizat ion Details LastModified Time Tobacco Smoking Status Current Every Day Smoker Radha rios [place] - [facility] 06/26/2024 14:32:27 What Is Your Level Of [...] Diagnosis/Indication Diagnosis SNOMED-CT Code Diagnosis ICD10 Code [id number] ARMANI ACUNA MD [facility] [address] [address] 06/26/2024 14:17:11 06/29/2024 07:54:19 Otalgia of left ear 2573847835 H92.02 Chronic rhinitis 0652129 6 J31.0 Abnormal a uditory perception 24162111 H93.292 [id number] BONNIE ELLIOTT MA, [facility] [address] [address] 06/26/2024 15:24:19 06/29/2024 07:55:13 Sensorineural hearing loss of bilateral ears 483369224 H90.3 [id number] IVETH MCWILLIAMS MD [facility] [address] [address] 07/28/2024 08:23:08 07/28/2024 08:58:40 Nasal obstruction 624038621 J34.89 Bilateral dermatochalasis of upper eyelids 6787510830 0348517 H02.831 H02.834 Stenosis o f nasal valve 6818770157 8566267 J34.8202 Health Concerns Section Related Observation LastModified by Organization Detai ls LastModified Time None Recorded Concern Status LastModified by Organization Details LastModified Time None Recorded Advance Directives Directive None Recorded Payers Encounter Date Sequence Insurance Name Policy Number Policy [place] Covered Member ID [place] Member ID Guarantor Name 06/26/2024 1 MEDICARE B-[place]: [employer] Elena Storey [id number] Elena Storey 06/26/2024 2 MEDICAID-[place]: [facility] Elena Storey [id number] Elena Storey 06/26/2024 1 MEDICARE B-[place]: [facility] Elena Storey [id number] Elena Storey 06/26/2024 2 MED[place]ID-[place]: [facility] Elena Storey [id number] Elena Storey 07/28/2024 1 MEDICARE B-[place]: [facility] Elena Storey [id number] Elena Storey 07/28/2024 2 MED[place]ID-[place]: [facility] Elena Storey [id number] Elena Storey Notes Date Note Type Note [...] bromide SNOT= 15Nose= 40 ARMANI MACDONALD MD [address] [place] [address], [phone], [facility] - [facility] 06/26/2024 16:34:45 07/28/2024 text/html This is a 68-year-old woman who presents today for evaluation of nasal obstruction. She is here as a referral from Dr. Gary Mattson. She has had difficulty breathing through her mouth and nose for a long time. She feels like the obstruction is on both sides, but this also changes from [id number]. On a scale of 1 to 10, with 1 being the worst and 10 being the best, nasal breathing on each side is scored as follows: Right: 7/10 Left: 7/10 ?? Associated symptoms: Nasal congestion, nasal pressure, nasal obstruction, Medications trialed: oral allergy medications, nasal rinses History of seasonal allergies: none History of prior nasal trauma: none History of recurrent, acute, or chronic sinusitis: no recent History of prior nasal surgery: none Prior intranasal drug use: none Smoking: yes - ~1/2ppd She also has droopiness of the upper lower eyelids. She was seen by her eye doctor recently who told her she had good vision. She does feel like there is less light due to her eyelids. ?? IVETH MCWILLIAMS MD [address] [place] [address], [place], [address], [facility] - [facility] 07/28/2024 11:54:46 OBGyn Episode No OBEpisode recorded.
--- OUTSIDE RECORDS SUMMARY | 2024-09-09 05:28 | XMS_ITS | Continuity of Care Document ---
Author Organization [place] - [facility], [facility] Address [address] [place] [address] Care Team Providers Care Automotive Sales Specialist Name Role Phone CECILIO SALDAÑAIA Primary Care Provider [phone] Assessment Encounter Date Assessment Date Assessment LastModified by Organization Details LastModified Time 07/28/2024 07/28/2024 1. Nasal obstruction 2. Nasal [...] Details Recorded Time Otalgia of left ear 3215879489 Active 2023 ARMANI PATE MD [address] [facility],[address], [place], [address], [facility] - [facility] 4 14:48:26 Chronic rhinitis 04178469 Active 2023 ARMANI PATE MD [address] [facility],[address], [facility] [place], [address], [facility] 4 14:48:31 Abnormal auditory perception 43915529 Active 2023 ARMANI PATE MD [address] [facility],[address], [place], [address], [facility] - [facility] 4 14:48:44 Sensorineur al hearing loss of bilateral ears 140597070 Active 2023 BONNIE ELLIOTT MA, CCC-A [address] [facility],[address], [place], [address], [facility] - [facility] 4 15:25:11 Nasal obstruction 830612244 Active 2023 IVETH MCWILLIAMS MD [address] [facility],[address], [facility] [place], [address], [facility] - [facility] 4 11:50:55 Incompetenc e of nasal valve 899569335 Active 2023 IVETH MCWILLIAMS MD [address] [facility] 100, [place], [address], [facility] 11:51:01 Stenosis of nasal valve 7454125779140 4106 Active 2023 IVETH MCWILLIAMS MD [address] [facility] 100, [place], [address], [facility] 11:52:18 Bilateral dermatochal asis of upper eyelids Active 2023 IVETH MCWILLIAMS MD [address] [facility] 100, [place], [address], [facility] 11:52:24 Problem Notes None recorded. Procedures Surgical History Date Name Laterality Status Provider Name and Address Organization Details Recorded Time Nasal Endoscopy completed IVETH MCWILLIAMS MD [address] [place] [address], [address], [facility] 07/28/2024 11:37:39 Comp Audio with Tymps (11037 & 31132) completed BONNIE ELLIOTT MA, [facility] [address] [place] [address], [address], [facility] 06/26/2024 15:25:00 Imaging Results None recorded. Procedure Notes None recorded. Medical Equipment None Reported. Allergies Allergen ID Allergen Name Allergen Category Reaction Reaction Severity Criticality Documentation Date Start Date Code Code System Note Provider Name and Address Organization Details Recorded Time 923382 Substance with sulfonami de structure and antibacte rial mechanism of action (substanc e) medicatio n Not available Not available Not available 06/26/2024 61173 8003 SNOMED Radha rios [facility] 14:30:21 Medications Name Sig Start Date Stop [...] bromide 21 mcg (0.03 %) nasal spray [place] 2 sprays twice a day by intranasa [...] Details Last Updated DateTime 07/28/2024 164.47 cm 86406.74 g Radha Goetz [place] - [facility] 07/28/2024 08:28:02 Social History Question Answer Notes LastModified by Organizat ion Details LastModified Time Tobacco Smoking Status Current Every Day Smoker Radha rios [place] - [facility] 06/26/2024 14:32:27 What Is Your Level Of [...] Diagnosis/Indication Diagnosis SNOMED-CT Code Diagnosis ICD10 Code [id number] IVETH MCWILLIAMS MD [facility] [address] [address] 07/28/2024 08:23:08 07/28/2024 08:58:40 Nasal obstruction 411482383 J34.89 Bilateral dermatochalasis of upper eyelids 8886589505 6166857 H02.831 H02.834 Stenosis o f nasal valve 2773913701 1823079 J34.8202 Health Concerns Section Related Observation LastModified by Organization Detai ls LastModified Time None Recorded Concern Status LastModified by Organization Details LastModified Time None Recorded Payers Encounter Date Sequence Insurance Name Policy Number Policy [place] Covered Member ID [place] Member ID Guarantor Name 07/28/2024 1 MEDICARE B-[place]: [employer] Elena Storey [id number] Elena Storey 07/28/2024 2 MED[place]ID-[place]: [facility] Elena Storey [id number] Elena Storey Notes Date Note Type Note Provider Name and Address Organization Details Recorded Time 07/28/2024 text/html This is a 68-year-old woman who presents today for evaluation of nasal obstruction. She is here as a referral from Dr. Gary Mattson. She has had difficulty breathing through her mouth and nose for a long time. She feels like the obstruction is on both sides, but this also changes from [id number]. On a scale of 1 to 10, [...] to her eyelids. ?? IVETH MCWILLIAMS MD [address] [place] [address], [address], [place] - [facility] 07/28/2024 11:54:46 OBGyn Episode No OBEpisode recorded.
--- OUTSIDE RECORDS SUMMARY | 2024-09-09 05:28 | XMS_ITS | Continuity of Care Document ---
Author Organization [place] - [facility], [facility] Address [address] [place] [address] Care Team Providers Care Solid Waste Facility Operator Name Role Phone JENNIFER SALDAÑA Primary Care Provider Assessment No assessment recorded. Plan of Treatment Reminders Order Date Submit [...] Details Recorded Time Otalgia of left ear 0535174562 Active 2023 ARMANI PATE MD [address] [place] [address], [address], [facility] 4 14:48:26 Chronic rhinitis 03682052 Active 2023 ARMANI PATE MD [address] [place] [address], [address], [facility] 14:48:31 Abnormal auditory perception 35951549 Active 2023 ARMANI PATE MD [address] [place] [address] [place], [address], [place] - [facility] 4 14:48:44 Sensorineur al hearing loss of bilateral ears 403836995 Active 2023 BONNIE ELLIOTT [place], CCC-A [address] [facility] [place], [facility] [place], [address], [facility] - [facility] 4 15:25:11 Nasal obstruction 032165180 Active 2023 IVETH MCWILLIAMS MD [address] [facility] [place], [facility] [place], [address], [place] - [facility] 4 11:50:55 Incompetenc e of nasal valve 233679143 Active 2023 IVETH MCWILLIAMS MD [address] [facility] [place], [facility] [place], [address], [facility] - [facility] 4 11:51:01 Stenosis of nasal valve 5217200035559 4106 Active 2023 IVETH MCWILLIAMS MD 100 [facility],[address], [facility] [place], [address], [facility] - [facility] 4 11:52:18 Bilateral dermatochal asis of upper eyelids Active 2023 IVETH MCWILLIAMS MD [address] [facility] [place], [facility] [place], [address], [facility] - [facility] 4 11:52:24 Problem Notes None recorded. Procedures Surgical History Date Name Laterality Status Provider Name and Address Organization Details Recorded Time 4 Nasal Endoscopy completed IVETH MCWILLIAMS MD [address] [facility] [place] [address], [place], [address], [facility] - [facility] 07/28/2024 11:37:39 Comp Audio with Tymps (54183 & 63218) completed BONNIE ELLIOTT MA, CCC-A [address] [facility] [place] [address], [place], [address], [facility] - [facility] 06/26/2024 15:25:00 Imaging Results None recorded. Procedure Notes None recorded. Medical Equipment None Reported. Allergies Allergen ID Allergen Name Allergen Category Reaction Reaction Severity Criticality Documentation Date Start Date Code Code System Note Provider Name and Address Organization Details Recorded Time 690635 Substance with sulfonami de structure and antibacte rial mechanism of action (substanc e) medicatio n Not available Not available Not available 06/26/2024 47253 8003 SNOMED Radha rios [facility] 14:30:21 Medications Name Sig Start Date Stop [...] bromide 21 mcg (0.03 %) nasal spray [place] 2 sprays twice a day by intranasa [...] Details Last Updated DateTime 06/26/2024 164.47 cm 61177.74 g Radha Goetz [place] - [facility] 06/26/2024 14:34:56 Social History Question Answer Notes [...] History Nothing Reported. Medical History Condition Response COPD Y Hyperlipidemia Y Hypertension Y Gynecological HistoryNo gynecological history recorded. Obstetrics History GPAL:G 0 P 0 0 0 0 Past Encounters Encounter ID Performer Location Encounter Start Date Encounter Closed Date Diagnosis/Indication Diagnosis SNOMED-CT Code Diagnosis ICD10 Code [id number] ARMANI ACUNA MD [facility] [address] [address] 06/26/2024 14:17:11 06/29/2024 07:54:19 Otalgia of left ear 3159757217 H92.02 Chronic rhinitis 9715671 6 J31.0 Abnormal a uditory perception 73333207 H93.292 [id number] BONNIE ELLIOTT MA, [facility] [address] [address] 06/26/2024 15:24:19 06/29/2024 07:55:13 Sensorineural hearing loss of bilateral ears 150557428 H90.3 Health Concerns Section Related Observation LastModified by Organization Detai ls LastModified Time None Recorded Concern Status LastModified by Organization Details LastModified Time None Recorded Payers Encounter Date Sequence Insurance Name Policy Number Policy [place] Covered Member ID [place] Member ID Guarantor Name 06/26/2024 1 MEDICARE B-[place]: [facility] [employer] Elena Storey [id number] Elena Storey 06/26/2024 2 MED[place]ID-[place]: [facility] Elena Storey [id number] Elena Storey Notes Date Note Type Note [...] bromide SNOT= 15Nose= 40 ARMANI MACDONALD MD [address] [place] [address], [place], [address], [place] - [facility] 06/26/2024 16:34:45 OBGyn Episode No OBEpisode recorded.
== END 2024-09-04 08:25 | disposition home or self-care (01) ==
LOC: HO.HAP 08:24
PROVIDERS: PCP General Practice; Visit Provider Otolaryngology
DX: Z13.89 Encounter for screening for other disorder (principal)

== ENCOUNTER 2024-12-08 08:02 | Outpatient (REF) | payer MEDICARE, MEDICAID, SELFPAY ==
--- NOTE | ~2024-12-08 | CT_ITS ---
EXAMINATION: CT LUNG SCREENING HISTORY: Smoking history TECHNIQUE: Low dose axial images were obtained from the sternal notch to upper abdomen without IV contrast per standard departmental protocol. Sagittal and coronal reformatted images were also obtained and reviewed. One or more of the following techniques was used for dose reduction: Automated exposure control, adjustment of the mA and/or kV according to patient size, use of iterative reconstruction technique. DLP: 48 mGy-cm COMPARISON: Comparison is made with the prior examination dated 11/27/2023. FINDINGS: Lung nodules: Again seen is a 9 x 4 mm nodule in the right lower lobe (series 4, image 95). There is a 5 mm nodule in the left lower lobe (series 4, image 76) which is also stable. No new pulmonary nodules are identified. Emphysema: none Coronary Calcification: mild Aortic Arch Calcification: mild Potentially Significant Incidentals : none Additional Chest Findings: There is no pleural or pericardial effusion. No mediastinal or axillary lymphadenopathy is identified. Visualized upper abdomen: The visualized portions of the liver, spleen, and right adrenal gland have an unremarkable unenhanced appearance. Again seen is a 2.0 cm left adrenal adenoma. CT/CT lung screening IMPRESSION: No suspicious pulmonary nodules are identified. LUNG-RADS ASSESSMENT: Lung-RADS 2: Benign MANAGEMENT: Continue annual screening with LDCT in 12 months Category S: N/A Electronically signed by: Junior Wolf MD 12/08/2024 11:39 AM EDT
--- OUTSIDE RECORDS SUMMARY | 2024-12-08 08:26 | XMS_ITS | Encounter Summary ---
Author Organization [email or web address] Address [address] [facility] [address] [place] [address] Care Team Providers Care Plaster Whittler Name Role Phone Melisa Watkins MD Primary Care Provider [phone] Reason for Visit * Reason Comments Med Refill Encounter Details Date Type Department Care Team ([facility] Contact Info) Description 12/08/2024 Refill [facility] [address] [place], [place] [phone] Melisa Watkins MD [address] [place] [address] Other hyperlipidemia Social History Tobacco Use Types Packs/Day Years Used Date Smoking Tobacco: Every Day Cigarettes Smokeless Tobacco: Never Alcohol Use Standard Drinks/Week Comments Not Currently 0 (1 standard drink = 0.6 oz pur e alcohol) Housing Stability Answer Date Recorded What is your housing situation today? I have alicia wei 07/21/[address] you li ve. Do you have problems with any of the following? None of the above 07/21/2023 Food Insecurity Answer Date Recorded Within the past 12 months, y ou worried that your food would run out before you got money to buy more: Never True 07/21/2023 Within the past 12 months,th e food you bought just didn't last and you didn't have enough money to get more: Never True Transportation Answer Date Recorded In the past 12 months, has l ack of transportation kept you from medical appts, meetings, work or from getting things needed for daily living? No 01/01/2024 Utilities Answer Date Recorded In the past 12 months, has t he electric, gas, oil or water company threatened to shut off services in your home? No 07/21/2023 Depression Answer Date Recorded Patient Health Questionnaire-2 Score 0 01/21/2023 Internet Access Answer Date Recorded Internet Access Q1 Yes 12/01/2024 Internet Access Q2 Not on file 12/01/2024 Comments Unknown Sex and Gender Information Value Date Recorded Sex Assigned at Female 07/30/2022 10:27 AM EDT Legal Sex Female 10:27 AM EDT Gender Identity Female 07/30/2022 10:27 AM EDT Sexual Orientation Straight 07/30/2022 10 :27 AM EDT documented as of this encounter Plan of Treatment Upcoming Encounters Date Type Department Care Team (Late st Contact Info) Description 12/08/2024 11:30 AM EDT Office Visit [facility] [address] [place] [id number] Melisa Watkins MD [address] [place] [phone] documented as of this encounter Visit Diagnoses Diagnosis Other hyperlipidemia documented in this encounter Care Teams Plaster Whittler Relationship Specialty Start Date End Date Melisa Watkins MD [address] [place] [address] [phone] PCP - General Family Medicine 11/07/20 documented as of this encounter
--- OUTSIDE RECORDS SUMMARY | 2024-12-08 08:26 | XMS_ITS | Encounter Summary ---
Author Organization [employer] Address [address] [place] [address] 7t [place] [address] Care Team Providers Care Director Records Management Name Role Phone Melisa Watkins MD Primary Care Provider [phone] Reason for Visit * Reason Comments Pre-visit Planning SDOH screening negat karishma and tobacco screening negative Encounter Details Date Type Department Care Team ([facility] st Contact Info) Description 12/01/2024 Patient Outreach [facility] [address] [place], [place] [phone] Melisa Watkins MD [address] [place], [place] [phone] Pre-visit Planning (SDOH screening negative and tobacco screening negative) Social History Tobacco Use Types Packs/Day Years [...] AM EDT documented as of this encounter Progress Notes * Domi Powell - 12/01/2024 10:12 AM EST CC Domi. placed successful outbound call to patient for pre-visit planning. Patient name and confirmed. Patient confirms appt date and time, and has transportation arrangements. Biggest concernfor appointment at this time is none Appropriate screenings completed in anticipation of appointment. documented in this encounter Plan of Treatment Upcoming Encounters Date Type Department Care Team (Late st Contact Info) Description 12/08/2024 11:30 AM EDT Office Visit [facility] [address] [place] [address] Melisa Watkins MD [address] [place] [address] documented as of this encounter Visit Diagnoses Not on filedocumented in this encounter Care Teams Director Records Management Relationship Specialty Start Date End Date Melisa Watkins MD [address] [place] [address] PCP - General Family Medicine 11/07/20 documented as of this encounter
--- OUTSIDE RECORDS SUMMARY | 2024-12-08 08:26 | XMS_ITS | Encounter Summary ---
Author Organization [employer] Address [address] [facility] 7t [place] [address] Care Team Providers Care Decal Decorator Name Role Phone Melisa Watkins MD Primary Care Provider [phone] Encounter Details Date Type Department Care Team (Latest Contact Info) Description 12/01/2024 Travel Social History Tobacco Use Types Packs/Day Years Used Date Smoking Tobacco: Every Day Cigarettes Smokeless Tobacco: Never Alcohol Use Standard Drinks/Week Comments Not Currently 0 (1 standard drink = 0.6 oz pur e alcohol) Housing Stability Answer Date Recorded What is your housing situation today? I have aliciarobin wei 07/21/[address] you [...] Description 12/08/2024 11:30 AM EDT Office Visit [facility] [address] [place] [address] Melisa Watkins MD [address] [place] [address] documented as of this encounter Visit Diagnoses Not on filedocumented in this encounter Care Teams Decal Decorator Relationship Specialty Start Date End Date Melisa Watkins MD [address] [place], [place] [phone] PCP - General Family Medicine 11/07/20 documented as of this encounter
--- OUTSIDE RECORDS SUMMARY | 2024-12-08 08:26 | XMS_ITS | Encounter Summary ---
Author Organization [employer] Address [address] [place] [address] 7 [place] [address] Care Team Providers Care Geophysical Manager Name Role Phone Melisa Watkins MD Primary Care Provider [phone] Encounter Details Date Type Department Care Team (Late st Contact Info) Description 03/01/2023 Orders Only [facility] [address] [place] [address] [phone] Melisa Watkins MD [address] [place] [address] [phone] Chronic obstructive pulmonary disease, unspecified COPD type (CMS/HCC) (Primary Dx) Social History Tobacco Use Types Packs/Day Years Used Date Smoking Tobacco: Every Day Cigarettes Smokeless Tobacco: Never Alcohol Use Standard Drinks/Week Comments Not Currently 0 (1 standard drink = 0.6 oz pur e alcohol) Depression Answer Date Recorded Patient Health Questionnaire-2 Score 0 01/21/2023 Comments Unknown Sex and Gender Information Value [...] Description 12/08/2024 11:30 AM EDT Office Visit [facility] [address] [place] [address] [phone] Melisa Watkins MD [address] [place] [address] [phone] documented as of this encounter Visit Diagnoses Diagnosis Chronic obstructive pulmonary disease, unspecified COPD type (CMS/HCC)- Primary documented in this encounter Care Teams Geophysical Manager Relationship Specialty Start Date End Date Melisa Watkins MD 230 [place] [address] PCP - General Family Medicine 11/07/20 documented as of this encounter
--- OUTSIDE RECORDS SUMMARY | 2024-12-08 08:26 | XMS_ITS | Encounter Summary ---
Author Organization [employer] Address [address] [place] [address] 7 [place] [address] Care Team Providers Care Timber Hewer Name Role Phone Melisa Watkins MD Primary Care Provider [phone] Reason for Visit * Reason Comments Med Refill Encounter Details Date Type Department Care Team (Late st Contact Info) Description 06/04/2023 Refill [facility] [address] [place] [address] [phone] Pj Gibson MD [address] [place] [address] [phone] Social History Tobacco Use Types Packs/Day Years [...] Encounters Date Type Department Care Team (Late Contact Info) Description 12/08/2024 11:30 AM EDT Office Visit [facility] 230 [place], [place] [phone] Melisa Watkins MD 230 [place], [place] [phone] documented as of this encounter Visit Diagnoses Not on filedocumented in this encounter Care Teams Timber Hewer Relationship Specialty Start Date End Date Melisa Watkins MD [address] [place] [address] PCP - General Family Medicine 11/07/20 documented as of this encounter
--- OUTSIDE RECORDS SUMMARY | 2024-12-08 08:27 | XMS_ITS | Encounter Summary ---
Author Organization [employer] Address [address] [facility] 7t [place] [address] Care Team Providers Care Sole Dyer Name Role Phone Melisa Watkins MD Primary Care Provider [phone] Encounter Details Date Type Department Care Team ([facility] st Contact Info) Description 04/01/2024 Orders Only [facility] [address] [place], [place] [phone] Melisa Watkins MD 230 [place], [place] [phone] Screening for cervical cancer (Primary Dx) Social History Tobacco Use Types [...] the past 12 months, has t he [employer], [employer], oil or water company threatened to shut [...] Description 12/08/2024 11:30 AM EDT Office Visit [facility] [address] [place] [phone] Melisa Watkins MD [address] [place] [phone] Scheduled Orders Name Type Priority Associated Diagnoses Orde r Schedule HPV mRNA E6/E7 w/Reflex to HPV Genotypes 16, 18/45 Pathology and Cytology Routine Screening for cervical cancer Expected: 04/07/2024, Expires: 04/07/2025 documented as of this encounter Visit Diagnoses Diagnosis Screening for cervical cancer- Primary Screening for malignant neoplasm of the cervix documented in this encounter Care Teams Sole Dyer Relationship Specialty Start Date End Date Melisa Watkins MD [address] [place] [phone] PCP - General Family Medicine 11/07/20 documented as of this encounter
--- OUTSIDE RECORDS SUMMARY | 2024-12-08 08:27 | XMS_ITS | Encounter Summary ---
Author Organization [employer] Address [address] [place] [address] 7t [place] [address] Care Team Providers Care Horse Stud Manager Name Role Phone Melisa Watkins MD Primary Care Provider [phone] Encounter Details Date Type Department Care Team (Late st Contact Info) Description 09/26/2022 Orders Only [facility] [address] [place], [place] [phone] Maria Del Rosario Solo LPN Social History Tobacco Use Types Packs/Day Years Used Date Smoking Tobacco: Never Assessed Comments Unknown Sex and Gender Information Value [...] Description 12/08/2024 11:30 AM EDT Office Visit [facility] [address] [place] [address] Melisa Watkins MD [address] [place] [address] documented as of this encounter Visit Diagnoses Not on filedocumented in this encounter Care Teams Horse Stud Manager Relationship Specialty Start Date End Date Melisa Watkins MD [address] [place] [address] PCP - General Family Medicine 11/07/20 documented as of this encounter
--- OUTSIDE RECORDS SUMMARY | 2024-12-08 08:27 | XMS_ITS | Encounter Summary ---
Author Organization [employer] Address [address] [place] [address] 7t [place] [address] Care Team Providers Care Director Of Maternity Services Name Role Phone Melisa Watkins MD Primary Care Provider [phone] Encounter Details Date Type Department Care Team (Late st Contact Info) Description 12/12/2022 Orders Only [facility] [address] [place], [place] [phone] Maria Del Rosario Solo LPN Social History [...] Description 12/08/2024 11:30 AM EDT Office Visit [facility] [address] [place] [address] Melisa Watkins MD [address] [place] [address] documented as of this encounter Visit Diagnoses Not on filedocumented in this encounter Care Teams Director Of Maternity Services Relationship Specialty Start Date End Date Melisa Watkins MD [address] [place] [address] PCP - General Family Medicine 11/07/20 documented as of this encounter
--- OUTSIDE RECORDS SUMMARY | 2024-12-08 08:27 | XMS_ITS | Encounter Summary ---
Author Organization [employer] Address [address] [place] [address] 7 [place] [address] Care Team Providers Care Iron Worker Name Role Phone Melisa Watkins MD Primary Care Provider [phone] Encounter Details Date Type Department Care Team (Late Contact Info) Description 12/28/2022 Orders Only [facility] [address] [place] [phone] Melisa Watkins MD [address] [place] [phone] Social History Tobacco Use Types Packs/Day Years [...] Office Visit [facility] [address] [place] [phone] Melsia Watkins MD [address] [place] [phone] documented as of this encounter Visit Diagnoses Not on filedocumented in this encounter Care Teams Iron Worker Relationship Specialty Start Date End Date Melisa Watkins MD [address] [place] [address] [phone] PCP - General Family Medicine 11/07/20 documented as of this encounter
--- OUTSIDE RECORDS SUMMARY | 2024-12-08 08:27 | XMS_ITS | Encounter Summary ---
Author Organization [employer] Address [address] [place] [address] 7t [place] [address] Care Team Providers Care Band Booker Name Role Phone Melisa Watkins MD Primary Care Provider [phone] Encounter Details Date Type Department Care Team (Late st Contact Info) Description 01/17/2023 Orders Only [facility] [address] [place], [place] [phone] Maria Del Rosario Solo LPN Social History Tobacco Use Types Packs/Day Years Used Date Smoking Tobacco: Never Assessed Depression Answer Date Recorded Patient Health Questionnaire-2 [...] Description 12/08/2024 11:30 AM EDT Office Visit [facility] [address] [place], [place] [phone] Melisa Watkins MD [address] [place], [place] [phone] documented as of this encounter Procedures Procedure Name Priority Date/Time Associated Diagnosis Comments BI MAMMOGRAM SCREENING TOMOSYNTHESIS BILATERAL Routine 01/17/2023 8:11 AM EDT documented in this encounter Results * BI Mammogram Screening Tomosynthesis Bilateral (01/17/2023 8:11 AM EDT) Anatomical Region Laterality Modality Breast Bilateral Mammography 01/17/2023 8:11 AM EDT Narrative 01/18/2023 9:47 AM EDT ? [facility] ? [address] ?[place] [address] ? Mammography Report ? Signed ? Patient: Cordelia,Elena E ?MR#: [id number] ?? [id number] ? : 1955 ?Acct:[id number] ? Age/Sex: 67 / F ?ADM Date: 01/17/23 ? Loc: HO.MAMMO ? Attending Dr: Melisa Watkins MD ? Ordering Physician: Melisa Watkins ?Results: 1Negative ? Date of Service: 01/17/23 ?Follow Up: 1 Year From Orig ?? inal Mammogram ? Procedure(s): MM tomosynthesis screening BI ?? Accession Number(s): [id number] ? cc: Melisa Watkins ? EXAMINATION: ?? MM SCREENING DIGITAL BREAST TOMOSYNTHESIS, BILATERAL ? CLINICAL INFORMATION: ? Screening. Asymptomatic. ? The lifetime risk of breast cancer based on the Tyrer-Cuzick Model is ?? 10.1%. ? COMPARISON: ?? Mammography: January 11, 2022 and studies dating back to May 11, 2015 ? TECHNIQUE: ?? Digital breast tomosynthesis is performed in both the craniocaudal and ?? mediolateral oblique views along with computer-aided detection (CAD). ?? Synthesized 2D images are generated from the tomosynthesis. ? FINDINGS: ?? The breasts are heterogeneously dense, which may obscure small masses ?? (ACR BI-RADS breast composition Category c). ? There are no significant masses, abnormal calcifications, or other ?? abnormalities. ? MM/MM tomosynthesis screening BI ?? IMPRESSION: ?? No significant changes from prior exam. ? ASSESSMENT: ? BI-RADS 1: Negative ? RECOMMENDATION: ?? Routine annual mammography screening. ? This patient's information was entered into a reminder system with a ?? target due date for their next mammogram. ? Dictated By: ?Russ Tanner MD ? Signed By: ?<Electronically signed by Russ Tanner MD in OV> ?01/18/23943 ? DD/ 0811 ? TD/TT: ? Mechanical Cad Designer: SK ? Procedure Note [place], Image - 03/28/2023 [place] [facility] [address] [place] [address] Mammography Report Signed Patient: Elena Storey EMR#: [id number] : 8Acct:[id number] Age/Sex: 67 / FADM Date: 01/17/23 Loc: HO.MAMMO Attending Dr: Melisa Watkins MD Ordering Physician: Red Watkinsults: 1Negative Date of Service: 01/17/23Follow Up: 1 Year From Orig inal Mammogram Procedure(s): MM tomosynthesis screening BI Accession Number(s): [id number] cc: Melisa Watkins EXAMINATION: MM SCREENING DIGITAL BREAST TOMOSYNTHESIS, BILATERAL CLINICAL INFORMATION: Screening. Asymptomatic. The lifetime risk of breast cancer based on the Tyrer-Cuzick Model is 10.1%. COMPARISON: Mammography: January 11, 2022 and studies dating back to May 11, 2015 TECHNIQUE: Digital breast tomosynthesis is performed in both the craniocaudal and mediolateral oblique views along with computer-aided detection (CAD). Synthesized 2D images are generated from the tomosynthesis. FINDINGS: The breasts are heterogeneously dense, which may obscure small masses (ACR BI-RADS breast composition Category c). There are no significant masses, abnormal calcifications, or other abnormalities. MM/MM tomosynthesis screening BI IMPRESSION: No significant changes from prior exam. ASSESSMENT: BI-RADS 1: Negative RECOMMENDATION: Routine annual mammography screening. This patient's information was entered into a reminder system with a target due date for their next mammogram. Dictated By: Russ Tanner MD Signed By: <Electronically signed by Russ Tanner MD in OV> 01/18/23 0944 DD/ 0811 TD/TT: Mechanical Cad Designer: VASQUEZ [facility] External Provider IMG BI PROCEDURES Edited Result - Final documented in this encounter Visit Diagnoses Not on filedocumented in this encounter Care Teams Band Booker Relationship Specialty Start Date End Date Melisa Watkins MD [address] [place] [phone] PCP - General Family Medicine 11/07/20 documented as of this encounter
--- OUTSIDE RECORDS SUMMARY | 2024-12-08 08:27 | XMS_ITS | Encounter Summary ---
Author Organization [email or web address] Address [address] [facility] 7t [place] [address] Care Team Providers Care Circulating Nurse Name Role Phone Melisa Watkins MD Primary Care Provider [phone] Reason for Visit * Reason Comments Med Refill Encounter Details Date Type Department Care Team ([facility] Contact Info) Description 05/20/2024 Refill [facility]INE [address] [place], [place] [phone] Melisa Watkins MD [address] [place] [address] Social History Tobacco Use Types Packs/Day Years [...] t he electric, gas, oil or water [employer] threatened to shut off services in your [...] Description 12/08/2024 11:30 AM EDT Office Visit [facility] MEDICINE [address] [place] [address] [phone] Melisa Watkins MD [address] [place] [address] documented as of this encounter Visit Diagnoses Not on filedocumented in this encounter Care Teams Circulating Nurse Relationship Specialty Start Date End Date Melisa Watkins MD [address] [place] [phone] PCP - General Family Medicine 11/07/20 documented as of this encounter
--- OUTSIDE RECORDS SUMMARY | 2024-12-08 08:28 | XMS_ITS | Clinical Summary ---
Author Organization [employer] Address [address] [place] [address] [address] [place] [address] Care Team Providers Care Indirect Fire Infantryman Name Role Phone Melisa Watkins MD Primary Care Provider [phone] Allergies Active Allergy Reactions Criticality Noted Date Comments Sulfamethoxazole 12/27/2014 Trimethoprim 12/27/2014 Medications Ventolin HFA 108 (90 Base) MCG/ACT inhalerIndications :Mild persistent asthma without complication INHALE 2 PUFFS BY MOUTH EVERY 4 TO 6 HOURS NEEDED 18 g 11 3 Active Multiple Vitamins-Minerals (PreserVision AREDS 2) capsule take 1 capsule by oral route 2 times every day with meals Active Misc. Devices (Pulse Oximeter For Finger) misc 1 each 2 times daily. 1 each 3 Active Misc. Devices (Pulse Oximeter Deluxe) misc USE DIRECTED TWICE DAILY 3 Active simvastatin (Zocor) 20 MG tabletIndications: Other hyperlipidemia TAKE 1 TABLET BY MOUTH EVERY EVENING 90 tablet 3 4 Active cetirizine (ZyrTEC) 10 MG tablet TAKE 1 TABLET BY MOUTH EVERY DAY 90 tablet 3 4 Active albuterol (2.5 MG/3ML) 0.083% nebulizer solutionIndication s:Chronic obstructive pulmonary disease, unspecified (CMS/HCC) INHALE 1 AMPULE USING A NEBULIZER EVERY 12 HOURS NEEDED 180 mL 1 4 Active azithromycin (Zithromax) 250 MG tablet TAKE 2 TABLETS BY MOUTH ON DAY 1, THEN TAKE 1 TABLET DAILY ON DAYS 2-5 4 Active Trelegy Ellipta 200-62.5-25 MCG/ACT aerosol powder INHALE 1 PUFF BY MOUTH EVERY DAY AT THE SAME TIME 4 Active ipratropium (Atrovent) 0.03 % nasal spray Administer 1 spray into each nostril 2 times daily. 4 Active ipratropium-albute rol (Duo-Neb) 0.5-2.5 mg/3 mL nebulizer solution INHALE 1 AMPULE USING A NEBULIZER TWICE DAILY NEEDED FOR WHEEZING 4 Active lisinopril 10 MG tablet TAKE 1 TABLET BY MOUTH EVERY DAY 90 tablet 3 4 Active D3 Super Strength 50 MCG (2000 UT) capsule TAKE 1 CAPSULE BY MOUTH EVERY DAY 90 capsule 3 4 Active simethicone (Mylicon) 80 MG chewable tablet Chew 1 tablet (80 mg) every 6 (six) hours if needed for flatulence. CHEW AND SWALLOW 1 TABLET BY MOUTH FOUR TIMES DAILY 120 tablet 4 Active omeprazole (PriLOSEC) [address] capsuleIndications :Gastroesophageal reflux disease without esophagitis TAKE 1 CAPSULE BY MOUTH EVERY DAY BEFORE BREAKFAST 90 capsule 4 Active ibuprofen 800 MG tablet TAKE 1 TABLET BY MOUTH THREE TIMES DAILY NEEDED 90 tablet 1 5 Active Active Problems Problem Noted Date Diagnosed Date Screening for cervical cancer 03/30/2024 Environmental allergies 01/13/2024 Assessment & Plan (01/13/2024 4:45 PM EDT): Refer to ENT for allergies/sinusitis/narrow nasal passages Stuffy and runny nose 01/13/2024 Assessment & Plan (01/13/2024 4:46 PM EDT): Refer to ENT COPD exacerbation 01/21/2023 Assessment & Plan (08/02/2023 12:29 PM EDT): Prednisone and Augmentin (for sinus infection) x 10 days Assessment & Plan (02/23/2023 9:12 AM EDT): Worsening of prior exacerbation or new flare? Allergic triggers are high right now Will treat with prednisone 40mg x 7 days; doxycycline 100mg BID x 7 day Continue Flonase, Zyrtec for allergies Continue Breo, TRICE prn If sats do not improve > 90% consistently after 24-48 hours of new treatment to ER Medications (abx, steroid, Mucinex) sent to [facility] on [address] due to weekend Assessment & Plan (01/21/2023 2:47 PM EDT): Will treat with prednisone 40mg x 5 days Restart Flonase Continue Breo, continue Zyrtec Chronic bilateral low back pain 01/21/2023 Assessment & Plan (01/21/2023 2:48 PM EDT): Lidocaine patches ordered Vitamin D deficiency 04/23/2017 Chronic obstructive lung disease 10/04/2015 Assessment & Plan (08/02/2023 12:30 PM EDT): On Breo Could be on Trelelgy? Continue TRICE prn Paperwork given for RMV disability femi Does not qualify for home O2 based on six minute walk test Essential hypertension 10/04/2015 Assessment & Plan (08/02/2023 12:29 PM EDT): At goal, cotinue Lisinopril 10mg daily Hiatal hernia 10/04/2015 Hyperlipidemia 10/04/2015 Macular degeneration 10/04/2015 Smoker 10/04/2015 Assessment & Plan (08/02/2023 12:30 PM EDT): Continue trying to quit on her own Assessment & Plan (01/21/2023 2:48 PM EDT): Continue trying to quit on her own Encounters Date Type Department Care Team Description 12/08/2024 Refill [facility] [address] [place] [address] Melisa Watkins MD Other hyperlipidemia 12/01/2024 Travel 12/01/2024 Patient Outreach [facility] [address] [place] [address] Melisa Watkins MD Pre-visit Planning (SDOH screening negative and tobacco screening negative) 10/16/2024 Telephone [facility] [address] [place] [address] Celeste Hutchins [place] recall 10/09/2024 Refill [facility] [address] [place] [address] Melisa Watkins MD from Last 3 Months Immunizations Name Administration Dates Next Due Influenza High-dose Quadrivalent Preservative Fr ee 08/02/2023 Influenza Injectable Quadriv alant Preservative Free IIV4 MDCK 08/16/2022 Influenza injectable quadrivalent preservative f ree 07/26/2020,07/28/2019 Influenza, IIV3, injectable 07/20/2021 Pneumococcal Conjugate PCV 20 06/01/2022 Pneumococcal Polysaccharide PPSV23 07/28/2019 Tdap 06/26/2018 Social History Tobacco Use Types Packs/Day Years Used Date Smoking Tobacco: Every Day Cigarettes Smokeless Tobacco: Never Tobacco Cessation:Ready to Q uit: Not Asked; Counseling Given: Not Answered Alcohol Use Standard Drinks/Week Comments Not Currently [...] Orientation Straight 07/30/2022 10 :27 AM EDT Last Filed Vital Signs Vital Sign Reading Time Taken Comments Blood Pressure 137/63 03/31/2024 9:12 AM EDT Pulse 73 03/31/2024 9:12 AM EDT Temperature 36.7 ??C (98.1 ??F) 03/31/2024 9:12 AM ED T Respiratory Rate 20 03/31/2024 9:12 AM EDT Oxygen Saturation 94% 01/10/2024 10:54 AM EDT Inhaled Oxygen Concentration - - Weight 73.7 kg (162 lb 6.4 oz) 03/31/2024 9:12 A M EDT Height 163.8 cm (5' 4.5 ) 03/31/2024 9:12 AM EDT Body Mass Index 27.45 03/31/2024 9:12 AM EDT Plan of Treatment Upcoming Encounters Date Type Department Care Team (Late st Contact Info) Description 12/08/2024 11:30 AM EDT Office Visit [facility] [address] [place] [address] Melisa Watkins MD [address] [place] [address] Health Maintenance Due Date Last Done Comments CT Colonography 1955 Colonoscopy 1955 Colorectal Cancer Screening 1955 FIT DNA/Cologuard 1957 FIT 1955 FOBT 1955 Sigmoidoscopy 1957 Alcohol/Substance Use Screening 1969 Hepatitis C Screening 12/10/1975 Zoster Vaccines (1 of 2) 12/10/2007 RSV Patients and Patients Aged 60 years or older (1 - Risk 60-74 years 1-dose series) 2017 Depression Screening 01/22/2024 01/21/2023, 01/22/20 23 COVID-19 Vaccine ( season) 2024 02/08/2021, 01/11/2021 Influenza Vaccine (#1) 2024 , 08/16/2022, 07/20/2021, Additional history exists Mammogram 01/20/2025 01/21/2024, 04/2 , 01/17/2023, Additional history exists Tobacco Screening 03/31/2025 03/31/2024 SDOH Screening 12/01/2025 12/01/2024 HPV/Cotest 03/31/2027 04/23/2017 Pap Smear 03/31/2027 03/31/2024, 04/05/2021 DTaP/Tdap/Td Vaccines (2 - Td or Tdap) 06/26/2028 06/26/2018 Lipid Panel 01/19/2029 01/20/2024 Pneumococcal Vaccine: 50+ Years Completed 06/01/2022, 07/28/2019 HIB Vaccines Aged Out No longer eligi ble based on patient's age to complete this topic HPV Vaccines Aged Out No longer eligi ble based on patient's age to complete this topic Hepatitis A Vaccines Aged Out No long er eligible based on patient's age to complete this topic Hepatitis B Vaccines Aged Out No long er eligible based on patient's age to complete this topic IPV Vaccines Aged Out No longer eligi ble based on patient's age to complete this topic Meningococcal Vaccine Aged Out No hernandez nicole eligible based on patient's age to complete this topic RSV under 20 months Aged Out No longe r eligible based on patient's age to complete this topic Rotavirus Vaccines Aged Out No longer eligible based on patient's age to complete this topic Procedures Procedure Name Priority Date/Time Associated Diagnosis Comments THINPREP?? IMAGING PAP REFL HPV MRNA(IF ASCUS,ASC-H,LSIL) Routine 03/31/2024 9:22 AM EDT BI MAMMOGRAM SCREENING TOMOSYNTHESIS BILATERAL Routine 01/21/2024 9:58 AM EDT LIPID PANEL, STANDARD Routine 01/20/2024 9:03 AM EDT Other hyperlipidemia ZZZ HISTORICAL HPV MRNA E6/E7 Routine 04/23/2017 10:30 AM EDT from Last 3 Months or Most Recently Relevant to Health Maintenance Results * ThinPrep?? Imaging Pap Refl HPV mRNA(if ASCUS,ASC-H,LSIL,HSIL,EVIE)Refl Genotype (03/31/2024 9:22 AM EDT) HPV nRNA E6/E7 [facility] HPV 16,18/45 [facility] SOURCE: SEE NOTE [facility] Comment:None given Report Status: [facility] Clinical Information: SEE NOTE [facility] Comment:None given LMP: SEE NOTE [facility] Comment:NONE GIVEN Prev. PAP: SEE NOTE [facility] Comment:NONE GIVEN Prev. BX: SEE NOTE [facility] Comment:NONE GIVEN Statement Of Adequacy: SEE NOTE [facility] Comment:Satisfactory for karen luation.Endocervical/transformation zone componentpresent. General Categorization: [facility] Interpretation/Result: SEE NOTE [facility] Comment:Cytology Results: Ne gative for intraepitheliallesion or malignancy. Cytology Comment SEE NOTE [facility] Comment:This Pap test has be en evaluated with computerassisted technology. Stereotype Molder: SEE NOTE [facility] Comment:WAC, CT(ASCP)CT scre ening location: [address] [address] Review Stereotype Molder: [facility] Pathologist [facility] PAP Infection [facility] See Note SEE [facility] Comment:EXPLANATORY NOTE:The Pap is a screening test for cervical cancer. It isnot a diagnostic test and is subject to false negativeand false positive results. It is most reliable when asatisfactory sample, regularly obtained, is submittedwith relevant clinical findings and history, and whenthe Pap result is evaluated along with historic andcurrent clinical information.THIS TEST WAS PERFORMED AT:[employer] [address] [id number] NAPOLES MD 03/31/2024 9:22 AM EDT 03/31/2024 1:00 PM EDT Narrative [facility] - 04/07/2024 2:32 PM EDT SEE SCANNED RESULTS IN EMR us Melisa Watkins MD LAB CYTOLOGY ORDERABLES Final Result [facility] [address] [place] [address] [phone] * BI Mammogram Screening Tomosynthesis Bilateral (01/21/2024 9:58 AM EDT) Anatomical Region Laterality Modality Breast Bilateral Mammography 01/21/2024 9:58 AM EDT Narrative 02/03/2024 12:27 PM EDT ? [facility] ? [address] ?[place] [address] ? Mammography Report ? Signed ? Patient: Cordelia,Elena E ?MR#: [id number] ?? [id number] ? : 1955 ?Acct:[id number] ? Age/Sex: 68 / F ?ADM Date: 01/21/24 ? Loc: HO.MAMMO ? Attending Dr: Melisa Watkins MD ? Ordering Physician: Melisa Watkins ?Results: 2Benign F ?? indings ? Date of Service: 01/20/ ?Follow Up: 1 Year From Orig ?? inal Mammogram ? Procedure(s): MM tomosynthesis screening BI ?? Accession Number(s): [id number] ? cc: Melisa Watkins ? EXAMINATION: ?? MM SCREENING DIGITAL BREAST TOMOSYNTHESIS, BILATERAL ? CLINICAL INFORMATION: ? Screening. Asymptomatic. Family history of breast cancer in mother, ?? maternal aunt. ? COMPARISON: ?? Mammography: 01/17/2023, 01/11/2022, 12/20/2020, 08/03/2019, 06/20/2018 ? TECHNIQUE: ?? Digital breast tomosynthesis is performed in both the craniocaudal and ?? mediolateral oblique views along with computer-aided detection (CAD). ?? Synthesized 2D images are generated from the tomosynthesis. ??A second ?? right MLO full-field view was provided. ? FINDINGS: ?? The breasts are heterogeneously dense, which may obscure small masses ?? (ACR BI-RADS breast composition Category c). ? Parenchyma is borderline category B. There are 2 stable small ?? circumscribed nodules in the mid inferior right breast, and 6:00 axis ?? left breast. There are no suspicious masses, suspicious grouped ?? calcifications, or areas of architectural distortion in either breast. ?? The parenchymal pattern is stable from prior exams. No skin or axillary ?? abnormalities. ? MM/MM tomosynthesis screening BI ?? IMPRESSION: ?? No mammographic evidence of malignancy. ? ASSESSMENT: ? BI-RADS BI-RADS 2 - Benign Findings ? RECOMMENDATION: ?? Routine annual mammography screening. ? 1 year F/U ? This examination should not preclude the clinical evaluation of a ?? suspicious palpable abnormality. ? This patient's information was entered into a reminder system with a ?? target due date for their next mammogram. ? Dictated By: ?Oumar Mohr MD ? Signed By: ?<Electronically signed by Oumar Mohr MD in OV> ?02/03/241223 ? DD/ 0958 ? TD/TT: ? Straight Knife Machine Cutter: ? Procedure Note Alonso Augustine - 02/03/2024 [facility] [address] [place], [place] [address] Mammography Report Signed Patient: Elena Storey EMR#: [id number] : 8Acct:[id number] Age/Sex: 68 / FADM Date: 01/21/24 Loc: HO.MAMMO Attending Dr: Melisa Watkins MD Ordering Physician: Red Watkinsults: 2Benign F indings Date of Service: 01/21/24Follow Up: 1 Year From Orig inal Mammogram Procedure(s): MM tomosynthesis screening BI Accession Number(s): [id number] cc: Melisa Watkins EXAMINATION: MM SCREENING DIGITAL BREAST TOMOSYNTHESIS, BILATERAL CLINICAL INFORMATION: Screening. Asymptomatic. Family history of breast cancer in mother, maternal aunt. COMPARISON: Mammography: 01/17/2023, 01/11/2022, 12/20/2020, 08/03/2019, 06/20/2018 TECHNIQUE: Digital breast tomosynthesis is performed in both the craniocaudal and mediolateral oblique views along with computer-aided detection (CAD). Synthesized 2D images are generated from the tomosynthesis. A second right MLO full-field view was provided. FINDINGS: The breasts are heterogeneously dense, which may obscure small masses (ACR BI-RADS breast composition Category c). Parenchyma is borderline category B. There are 2 stable small circumscribed nodules in the mid inferior right breast, and 6:00 axis left breast. There are no suspicious masses, suspicious grouped calcifications, or areas of architectural distortion in either breast. The parenchymal pattern is stable from prior exams. No skin or axillary abnormalities. MM/MM tomosynthesis screening BI IMPRESSION: No mammographic evidence of malignancy. ASSESSMENT: BI-RADS BI-RADS 2 - Benign Findings RECOMMENDATION: Routine annual mammography screening. 1 year F/U This examination should not preclude the clinical evaluation of a suspicious palpable abnormality. This patient's information was entered into a reminder system with a target due date for their next mammogram. Dictated By: Oumar Mohr MD Signed By: <Electronically signed by Oumar Mohr MD in OV> 02/03/24 1224 DD/ 0958 TD/TT: Straight Knife Machine Cutter: Melisa Watkins MD IMG BI PROCEDURES Final Result * (ABNORMAL) Lipid Panel, Standard (01/20/2024 9:03 AM EDT) Triglycerides 137 <150 mg/dL [facility] Comment:Desirable Triglyceri de: less than 150 mg/dLBorderline High Triglyceride 150-199 mg/dLHigh Triglyceride: 200-499 mg/dLVery High Triglyceride: greater than or equal to 5OO mg/dL Cholesterol 202(H) <200 mg/dL [facility] Comment:Desirable Cholestero l: less than 200 mg/dLBorderline High Cholesterol: 200-239 mg/dLHigh Cholesterol: greater than 239 mg/dL LDL Cholesterol Calculated 123(H) <100 mg/dL [facility] Comment:Desirable LDL: less than 100 mg/dLNear Optimal/Above Optimal LDL: 110- 129 mg/dLBorderline High LDL: 130-159 mg/dLHigh LDL: 160-189 mg/dLVery High LDL: greater than or equal to 190 mg/dL HDL Cholesterol 52 >40 mg/dL [facility] Comment:Desirable HDL: great er than 40 mg/dL Note: This HDL assay may give artificially low results in patients with liver disease. Blood Venous blood specimen / Unknown 01/20/2024 9:03 AM EDT 01/20/2024 11:31 AM EDT Melisa Watkins MD LAB BLOOD ORDERABLES Final Res ult [facility] [address] [place] [phone] * HPV mRNA E6/E7 (04/23/2017 10:30 AM EDT) HPV mRNA E6/E7 Not Detected NOT DETECTED [facility] Comment: This test was performed using the APTIMA(R) HPV Assay ([employer] This assay detects E6/E7 viral messenger RNA (mRNA) from 14 high-risk HPV types (16,18,31,33,35,39,45,51, 52,56,58,59,66,68). For additional information please refer to: http://education.[employer]/faq/KCU762v6 (This link is being provided for informational/ educational purposes only.) Test Performed by Bruna Loving, [employer] [facility], [address] [place] [address] Shmuel Fuentes M.D., Ph.D., Director of Laboratories , [facility] [id number] Please note: ??Effective 06/11/2016, HPV testing will be performed using [employer]'s APTIMA test which targets mRNA. Detecting mRNA instead of DNA, as in older methods, offers significant improvements in specificity. 04/23/2017 10:3 0 AM EDT us Desiree Baltazar NP HISTORICAL/NON ORDERABLE LABS Fi nal Result [facility] [address] from Last 3 Months or Most Recently Relevant to Health Maintenance Insurance [facility] STANDARD MEDICARE Care Teams Indirect Fire Infantryman Relationship Specialty Start Date End Date Melisa Watkins MD [address] [place] [address] PCP - General Family Medicine 11/07/20
--- OUTSIDE RECORDS SUMMARY | 2024-12-08 08:28 | XMS_ITS | Data Portability ---
Author Organization [place] - [facility] Formerly [facility], Allergy Address [address] [place] [id number] Care Team Providers Care Software Project Lead Name Role Phone JENNIFER SALDAÑA Primary Care Provider [phone] Assessment Encounter Date Assessment Date Assessment LastModified [...] Details Recorded Time Otalgia of left ear 5941980176 Active 2023 ARMANI PATE MD [address] [place] [address], Adelaida yañ[place], [phone], [facility] - [facility] 4 14:48:26 Chronic rhinitis 99561638 Active 2023 ARMANI PATE MD [address] [place] [address], [place]elaida yañ[place], [address], [facility] - [facility] 4 14:48:31 Abnormal auditory perception 57592051 Active 2023 ARMANI PATE MD [address] [place] [address], [place]elaida yañ[place], [phone], [facility] - [facility] 4 14:48:44 Sensorineur al hearing loss of bilateral ears 439403844 Active 2023 BONNIE ELLIOTT MA, CCC-A [address] [place] [address], Adelaida yañ[place], [phone], [facility] - [facility] [place] 4 15:25:11 Nasal obstruction 287045825 Active 2023 IVETH MCWILLIAMS MD [address] [facility], [place], [address], [facility] - [facility] [place] 4 11:50:55 Incompetenc e of nasal valve 505868771 Active 2023 IVETH MCWILLIAMS MD [address] [facility] [place], [address], [facility] - [facility] 4 11:51:01 Stenosis of nasal valve 5997023614380 4106 Active 2023 IVETH MCWILLIAMS MD [address] [facility] [facility] [address], [place], [address], [facility] 4 11:52:18 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 Procedures Surgical History Date Name Laterality Status Provider Name and Address Organization Details Recorded Time Nasal Endoscopy completed IVETH MCWILLIAMS MD [address] [place] [address], [phone], [facility] 07/28/2024 11:37:39 Comp Audio with Tymps (32100 & 41422) completed BONNIE ELLIOTT MA, CCC-A [address] [facility],[place] [address], [place], [address], [facility] - [facility] 06/26/2024 15:25:00 Imaging Results Imaging Date Name Status LastModified by Organiz ation Details LastModified Time 06/29/2024 audiogram completed BAR[facility] Information no t available 06/29/2024 14:48:43 Procedure Notes None recorded. Medical Equipment None Reported. Allergies Allergen ID Allergen Name Allergen Category Reaction Reaction Severity Criticality Documentation Date Start Date Code Code System Note Provider Name and Address Organization Details Recorded Time 086141 Substance with sulfonami de structure and antibacte rial mechanism of action (substanc e) medicatio n Not available Not available Not available 06/26/2024 19954 8003 SNOMED Radha rios [place] - [facility] 4 14:30:21 Medications Name Sig Start [...] bromide 21 mcg (0.03 %) nasal spray [place] 2 sprays twice a day by intranasa [...] Details Last Updated DateTime 06/26/2024 164.47 cm 27601.74 g Radha Goetz MA [facility] 06/26/2024 14:34:56 Date Recorded Body height Body weight Provider Name and Address Organization Details Last Updated DateTime 07/28/2024 164.47 cm 19404.74 g Radha Goetz MA [facility] 07/28/2024 08:28:02 Social History Question Answer Notes LastModified by Organizat ion Details LastModified Time Tobacco Smoking Status Current Every Day Smoker Radha rios [place] - [facility] 06/26/2024 14:32:27 What Is Your Level [...] Diagnosis/Indication Diagnosis SNOMED-CT Code Diagnosis ICD10 Code Diagnosis Note [id number] ARMANI ACUNA MD [facility] [address] [address] 06/26/2024 14:17:11 06/29/2024 07:54:19 Otalgia of left ear 4378423331 H92.02 no evidence no evidence of middle ear fluid. Left TMJ is tender. . If she has persistent symptoms consider fiberoptic laryngosco py. In the meantime suggest warm compresses , soft diet, massage and ibuprofen. She will follow-up in 6 weeks Chronic rhinitis 6794204 6 J31.0 Abnormal a uditory perception 44379530 H93.292 [id number] BONNIE ELLIOTT MA, CCC-A [facility] [address] [address] 06/26/2024 15:24:19 06/29/2024 07:55:13 Sensorineural hearing loss of bilateral ears 680143551 H90.3 Audiologic al evaluation results: Right ear: {{Normal N ormal through 2 kHz Mild M oderate Mo derately-s evere Yenny re Profoun d Normal hearing thru 1500Hz #}} {{hearing sloping to a mild slopi ng to a moderate s loping to moderately severe slo ping to severe slo ping to profound f lat high frequency low frequency mid frequency cookie bite biswas curve slop ing to a mild-moder ate SNHL #}} {{with* se nsorineura l hearing loss with condu ctive hearing loss with mixed hearing loss with}} {{excellen t* good fa ir poor no measurable }} word recognitio n. Left ear: {{Normal N ormal through 2 kHz Mild M oderate Mo derately-s evere Yenny re Profoun d Normal hearing thru 1000Hz sloping#}} {{hearing sloping to a mild slopi ng to a moderate s loping to moderately severe slo ping to severe slo ping to profound f lat high frequency low frequency mid frequency cookie bite biswas curve to a mild -moderate SNHL#}} {{with* se nsorineura l hearing loss with condu ctive hearing loss with mixed hearing loss with}} {{excellen t* good fa ir poor no measurable }} word recognitio n. Tympanomet ry: Right Ear:{{Type A* Type As Type Ad Type C Type C, shallow & rounded Ty pe B Type B with large volume Cou ld not maintain a hermetic seal}} Left Ear:{{Type A Type As Type Ad* Type C Type C, shallow & rounded Ty pe B Type B with large volume Cou ld not maintain a hermetic seal}} [id number] IVETH MCWILLIAMS MD [facility] [address] [address] 07/28/2024 08:23:08 07/28/2024 08:58:40 Nasal obstruction 428540873 J34.89 Bilateral dermatochalasis of upper eyelids 2536009631 8293962 H02.831 H02.834 Stenosis o f nasal valve 9386861574 0321158 J34.8202 Health Concerns Section Related Observation LastModified by Organization Detai ls LastModified Time None Recorded Concern Status LastModified by Organization Details LastModified Time None Recorded Advance Directives Directive None Recorded Payers Encounter Date Sequence Insurance Name Policy Number Policy [place] Covered Member ID [place] Member ID Guarantor Name 06/26/2024 1 [place] [employer] Elena Storey [id number] Elena Storey 06/26/2024 2 [place] [facility] Elena Storey [id number] Elena Storey 06/26/2024 1 [place] [employer] Elenaphilly Storey [id number] Elena Cordelia 06/26/2024 2 [place] [facility] Elena Storey [id number] Elena Storey 07/28/2024 1 MEDICARE B-[place]: [facility] [employer] Elena Storey [id number] Elena Storey 07/28/2024 2 [place] [facility] Elena Storey [id number] Elena Storey Notes Date Note Type Note [...] bromide SNOT= 15Nose= 40 ARMANI MACDONALD MD [address] [place] [address],[address], [address], [facility] 06/26/2024 16:34:45 07/28/2024 text/html This is a 68-year-old woman who presents today for evaluation of nasal obstruction. She is here as a referral from Dr. Gary Mattson. She has had difficulty breathing through her mouth and nose for a long time. She feels like the obstruction is on both sides, but this also changes from [id number]. On a scale of 1 to 10, with 1 being the worst and 10 being the best, nasal breathing on each side is scored as follows: Right: 7/10 Left: 7/10 ? ? ? Associated symptoms: Nasal congestion, nasal pressure, nasal [...] is less light due to her eyelids. ? ? ? IVETH MCWILLIAMS MD [address] [place] [address],[address], [address], [facility] 07/28/2024 11:54:46 OBGyn Episode No OBEpisode recorded.
--- OUTSIDE RECORDS SUMMARY | 2024-12-08 08:28 | XMS_ITS | Encounter Summary ---
Author Organization [employer] Address [address] [place] [address] Care Team Providers Care Teacher Emotionally Impaired Name Role Phone Melisa Watkins MD Primary Care Provider [phone] Encounter Details Date Type Department Care Team ([facility] st Contact Info) Description 11/26/2023 Orders Only [facility] [address] [place], [place] [phone] Melisa Watkins MD [address] [place] [address] Social History Tobacco Use Types Packs/Day Years [...] from getting things needed for daily living? Yes, it has kept me from medical appointments or getting medications. 07/07/2023 Utilities Answer Date Recorded In the past [...] Description 12/08/2024 11:30 AM EDT Office Visit [facility] [address] [facility] [place] [address] Melisa Watkins MD [address] [place] [address] documented as of this encounter Procedures Procedure Name Priority Date/Time Associated Diagnosis Comments LDCT LUNG SCREENING Routine 11/27/2023 1 1:34 AM EST documented in this encounter Results * CT Lung Screening Low dose (11/27/2023 11:34 AM EST) Anatomical Region Laterality Modality Lung Computed Tomogra phy 11/27/2023 11:3 4 AM EST Narrative 11/28/2023 3:57 PM EST ? [facility] ?[address] ?[place] [address] ? CT Scan Report ? Signed ? Patient: Elena Storey E ?MR#: [id number] ?? [id number] ? : 1955 ?Acct:[id number] ? Age/Sex: 67 / F ?ADM Date: 02/28/24 ? Loc: HO.CT ? Attending Dr: Nohelia Colvin PA-C ? Ordering Physician: Serene Rose NP ?? Date of Service: 11/27/23 ?? Procedure(s): CT lung screening ?? Accession Number(s): [id number] ? cc: Melisa Watkins; Serene Rose BRAKE SHOE REBUILDER ? EXAMINATION: ?? CT CHEST LOW-DOSE SCREENING WITHOUT CONTRAST ? HISTORY: ?? Asymptomatic patient meeting criteria for lung screening. No history of ?? lung carcinoma. ? PATIENT PACK-YEAR HISTORY: 52 ?? Current Smoker: Yes ?? If former smoker, years since quitting: Not applicable ? COMPARISON: ?? CT lung screening on 11/02/2022 ? Multidetector volumetric non-contrast CT imaging of the chest was ?? obtained on a Siemens Definition 64 scanner using low-dose screening ?? CT technique. Axial thin section 0.625 mm reformations in soft tissue ?? and lung windows were obtained. Sagittal and coronal reformations were ?? obtained. Axial MIP images were also created and reviewed. ?? RECONSTRUCTED WIDTH: ?? 1.25 mm x 1.25 mm ? This CT examination was performed using dose optimization techniques as ?? appropriate, variously including the following: ?? *Automated exposure control ?? *Adjustment of mA and/or kV according to patient size (this includes ?? techniques or standardized protocols for targeted exams where dose is ?? matched to indication/reason for exam; i.e. extremities or head) ?? *Use of iterative reconstruction technique ? TOTAL EXAM DLP: ?? 46.17 mGy-cm ? CTDIvol: ?? 1.08 mGy ? FINDINGS: ? LUNGS: Lungs bilaterally symmetrically expanded. ?? No effusion or pneumothorax. Central airways patent. ?? -Nodule #1 (Series 6, image 232): ??5.1 mm solid nodule, left lower lobe ?? superior segment, previously 5 mm. ?? -Nodule #2 (Series 6, image 390): ??3.8 mm solid nodule, lateral pleural ?? border of left lower lobe lateral basal segment, previously not ?? present. ?? -At least one micronodule (nodule measuring less than 4 mm) is present ?? without interval change. ? LYMPHATIC STRUCTURES: No mediastinal, hilar or axillary adenopathy or ?? free fluid collection. ? THYROID GLAND: Unremarkable to the extent seen. ? CARDIOVASCULAR STRUCTURES: Aortic and heart size normal. Mild coronary ?? artery calcifications. No pericardial effusion. ? UPPER ABDOMEN: Unchanged left adrenal benign adenoma measuring 1.5 x ?? 2.2 cm in size, mean attenuation of 1.1 Hounsfield units. ? OSSEOUS STRUCTURES: No suspicious focal findings. ? SPINAL COMPRESSION: Absent. ? CT/CT lung screening ?? IMPRESSION: ?? No findings suspicious for malignancy/pulmonary nodule(s)/other. ? LUNG-RADS CATEGORY ?? ASSESSMENT: 2: ??Benign ? INCIDENTAL FINDINGS (S CATEGORY): ?? Finding: No incidental findings. ?? Significance category: Normal or normal variant. ? RECOMMENDATION: ?? Low dose lung CT. overall in 1 year. ? Visual estimate of coronary calcified plaque burden: Mild. However, ?? this exam cannot replace a dedicated cardiac CT calcium score for ?? accurate assessment. ? Dictated By: ?Allan Suarez ? Signed By: ?<Electronically signed by Allan ??Erick in OV> ?11/28/23 1554 ? DD/ 1134 ? TD/TT: ? Combustion Engineer: ? Procedure Note Doncherelle, Image - 11/28/[address] [place] [address] [address] Scan Report Signed Patient: Elena Storey EMR#: [id number] : 8Acct:[id number] Age/Sex: 67 / FADM Date: 11/27/23 Loc: .CT Attending Dr: Nohelia Colvin PA-C Ordering Physician: Serene Rose NP Date of Service: 11/27/23 Procedure(s): CT lung screening Accession Number(s): [id number] cc: Melisa Watkins; Serene Rose NP EXAMINATION: CT CHEST LOW-DOSE SCREENING WITHOUT CONTRAST HISTORY: Asymptomatic patient meeting criteria for lung screening. No history of lung carcinoma. PATIENT PACK-YEAR HISTORY: 52 Current Smoker: Yes If former smoker, years since quitting: Not applicable COMPARISON: CT lung screening on 11/02/2022 Multidetector volumetric non-contrast CT imaging of the chest was obtained on a Siemens Definition 64 scanner using low-dose screening CT technique. Axial thin section 0.625 mm reformations in soft tissue and lung windows were obtained. Sagittal and coronal reformations were obtained. Axial MIP images were also created and reviewed. RECONSTRUCTED WIDTH: 1.25 mm x 1.[address] examination was performed using dose optimization techniques as appropriate, variously including the following: *Automated exposure control *Adjustment of mA and/or kV according to patient size (this includes techniques or standardized protocols for targeted exams where dose is matched to indication/reason for exam; i.e. extremities or head) *Use of iterative reconstruction technique TOTAL EXAM DLP: 46.17 mGy-cm CTDIvol: 1.08 mGy FINDINGS: LUNGS: Lungs bilaterally symmetrically expanded. No effusion or pneumothorax. Central airways patent. -Nodule #1 (Series 6, image 232): 5.1 mm solid nodule, left lower lobe superior segment, previously 5 mm. -Nodule #2 (Series 6, image 390): 3.8 mm solid nodule, lateral pleural border of left lower lobe lateral basal segment, previously not present. -At least one micronodule (nodule measuring less than 4 mm) is present without interval change. LYMPHATIC STRUCTURES: No mediastinal, hilar or axillary adenopathy or free fluid collection. THYROID GLAND: Unremarkable to the extent seen. CARDIOVASCULAR STRUCTURES: Aortic and heart size normal. Mild coronary artery calcifications. No pericardial effusion. UPPER ABDOMEN: Unchanged left adrenal benign adenoma measuring 1.5 x 2.2 cm in size, mean attenuation of 1.1 Hounsfield units. OSSEOUS STRUCTURES: No suspicious focal findings. SPINAL COMPRESSION: Absent. CT/CT lung screening IMPRESSION: No findings suspicious for malignancy/pulmonary nodule(s)/other. LUNG-RADS CATEGORY ASSESSMENT: 2: Benign INCIDENTAL FINDINGS (S CATEGORY): Finding: No incidental findings. Significance category: Normal or normal variant. RECOMMENDATION: Low dose lung CT. overall in 1 year. Visual estimate of coronary calcified plaque burden: Mild. However, this exam cannot replace a dedicated cardiac CT calcium score for accurate assessment. Dictated By: Allan Suarez Signed By: <Electronically signed by Allan Suarez in OV> 11/28/23 1554 DD/ 1134 TD/TT: Combustion Engineer: [facility] External Provider IMG CT PROCEDURES Final Result documented in this encounter Visit Diagnoses Not on filedocumented in this encounter Care Teams Teacher Emotionally Impaired Relationship Specialty Start Date End Date Melisa Watkins MD [address] [place] [address] PCP - General Family Medicine 11/07/20 documented as of this encounter
== END 2024-12-08 08:03 | disposition home or self-care (01) ==
LOC: HO.CT 08:02
PROVIDERS: PCP General Practice; Visit Provider Physician Assistant Medical
DX: Z12.2 Encounter for screening for malignant neoplasm of respiratory organs (principal); F17.210 Nicotine dependence, cigarettes, uncomplicated
CPT/HCPCS: 71271

== ENCOUNTER → 2024-12-08 08:04 | Outpatient (BNV) | payer MEDICARE, MEDICAID, SELFPAY | PROVIDERS: PCP General Practice; Visit Provider Radiology Diagnostic Radiology | DX: F17.210 Nicotine dependence, cigarettes, uncomplicated (principal) | CPT/HCPCS: 71271 ==

== ENCOUNTER 2024-12-28 09:23 | Outpatient (AMB) | payer MEDICARE, MEDICAID, SELFPAY ==
[2024-12-28 09:28] VITALS: BP 140/70; PULSE 78; O2SAT 91; BMI 30.1
--- NOTE | 2024-12-28 09:28 | A.OFFVIS_ITS ---
Vital Signs 12/28/24 09:28 Height 5 ft 4 in Weight 175 lb 4.28 oz BMI 30.1 BP 140/70 H Blood Pressure Location Rt brachial Position Sitting Pulse 78 Pulse Source Pulse Oximeter Pulse Oximetry (%) 91 L Oxygen Delivery Method Room Air Intake Visit Reasons: COPD Assistant Loan Processor Required: No Chief Counsel: Chief Counsel offered & declined Accompanied by: Self / Same As Patient Allergies sulfamethoxazole [From BACTRIM DS] Allergy (Unknown, Unverified 12/28/24 09:32) UNKNOWN trimethoprim [From BACTRIM DS] Allergy (Unknown, Unverified 12/28/24 09:32) UNKNOWN Medication List - Last Reconciled 12/28/24 by Denise Tirado, SAUL albuterol sulfate 90 mcg/actuation (Ventolin HFA) 2 inhalations inhalation Q4-6H PRN cetirizine 10 mg PO DAILY cholecalciferol (vitamin D3) (Vitamin D3) 50 mcg PO DAILY uwyjpzkxxps-rjlcujoao-lzpybnfv 200-62.5-25 mcg (Trelegy Ellipta) 1 inh inhalation DAILY guaifenesin ER (Mucinex) 600 mg PO Q12H PRN ipratropium bromide 1 spray intranasal BID ipratropium-albuterol 0.5 mg-3 mg(2.5 mg base)/3 mL 3 mL inhalation BID PRN lisinopril 10 mg PO DAILY multivitamin (Daily Multi-Vitamin tablet) 1 tab PO DAILY omeprazole 20 mg PO DAILY simethicone (Gas Relief (simethicone)) 80 mg PO QID simvastatin 20 mg PO BEDTIME vit C,L-Im-pjyhh-lutein-zeaxan 250-90-40-1 mg (PreserVision AREDS-2) 1 tab PO BID HPI HPI COPD: Details: Elena is a pleasant 69 year old female, current smoker with 30 pack year history with underlying severe COPD, HTN and hyperlipidemia. She reports moderate control with Trelegy and DuoNeb BID. She recently reported worsening respiratory symptoms over the last few weeks, treated with prednisone x 5 days with minimal improvement in symptoms on 12/08 by PCP. She continues to report productive cough with difficulty expectorating, chest congestion, increased dyspnea and wheezing. She denies fevers or chills. Today she presents to review LDCT results. [facility] Medical History (Updated 10/20/24 @ 10:02 by Nohelia Colvin PA-C) Nicotine dependence, cigarettes, uncomplicated Heart murmur Vitamin D deficiency Macular degeneration COPD (chronic obstructive pulmonary disease) HLD (hyperlipidemia) HTN (hypertension) Surgical History (Updated 10/30/22 @ 13:37 by Nohelia Colvin PA-C) History of endoscopy Family History (Updated 11/02/22 @ 13:33 by Nohelia Colvin PA-C) Father Lung cancer Social History (Updated 12/28/24 @ 09:34 by Denise Tirado LPN) Patient Tobacco Use Status: Current everyday Tobacco user Tobacco use type: Cigarette Cigarettes Per Day: 5 Years Smoked: onset 17yo, 1/2ppd-1ppd x 51yrs, 30phy Review of Systems Const Denies chills, Denies excessive sweating, Denies fever(s) and Denies night sweat s Eyes Denies dry eyes and Denies irritation ENT Reports Normal hearing present and Denies sore throat Card Denies chest pain, Denies chest pain at rest, Denies chest pain with activity, Denies claudication, Denies leg edema, Reports dyspnea on exertion, Denies orthopnea and Denies paroxysmal nocturnal dyspnea Resp Reports chest congestion, Reports cough, Denies excessive phlegm production, Denies pain on inspiration, Denies pain with cough, Reports dyspnea on exertion, Denies stridor and Reports wheezing Musc Denies myalgias Neuro Reports Normal hearing present Endo Denies excessive sweating Sid/Lymph Denies lymphadenopathy Aller/Immun Denies seasonal rhinorrhea and Reports wheezing Physical Exam Vital Signs: Last Vital Signs Pulse 78 12/28/24 09:28 BP 140/70 H 12/28/24 09:28 Pulse Ox 91 L 12/28/24 09:28 Oxygen Delivery Method Room Air 12/28/24 09:28 BMI result Body Mass Index 30.1 Const General: cooperative, no acute distress, well developed and alert Nutritional Appearance: obese Orientation/consciousness: patient oriented x3 Limitations: no limitations HEENT Head: Yes normal to inspection, Yes normocephalic and Yes atraumatic Ears: hearing grossly normal bilaterally and external ears normal Eyes General: appearance normal, both eyes and all related structures Sclerae: sclerae normal EOM: EOMs intact bilaterally Neck Neck: Yes normal visual inspection and Yes no lymphadenopathy Lymphatic: no lymphadenopathy noted Chest Chest palpation & inspection: normal inspection of the chest Resp Effort & Inspection: normal respiratory effort, able to speak in complete sentences, no audible wheezes, no stridor, not tachypneic, no tripod positioning and no use of accessory muscles Auscultation: rhonchi and diminished lung sounds Cardio Jugular venous distension: no JVD Rate: regular rate Rhythm: regular rhythm Skin Other: warm, dry General skin exam: no rashes or lesions noted Neuro General: patient oriented x3 Cranial nerves: Yes Normal hearing present Cognition (Neuro): normal cognition Gait exam (Neuro): Normal gait present Extrem General: Yes normal to inspection, Yes capillary refill normal, Yes no clubbing, cyanosis or edema and Yes no pedal edema Psych Appearance: grossly normal and well kempt Speech and movement: Normal speech and movement present and Clear speech present Affect: normal affect Attitude: cooperative Thought process: Normal thought process present Thought content: Normal thought content present Insight: Good insight present (Psych) Judgement: Good judgement present (Psych) Results Reviewed Results Reviewed: [place] [address] CT Scan Report Signed Patient: Elena Storey MR#: [id number] : 1955 Acct:[id number] Age/Sex: 68 / F ADM Date: 12/08/24 Loc: .CT Attending Dr: Nohelia Colvin PA-C Ordering Physician: Nohelia Colvin PA-C Date of Service: 12/08/24 Procedure(s): CT lung screening Accession Number(s): [id number] cc: Melisa Watkins; Nohelia Colvin PA-C~ Report Number: [id number]: Total DLP = 48.00 mGy-cm EXAMINATION: CT LUNG SCREENING HISTORY: Smoking history TECHNIQUE: Low dose axial images were obtained from the sternal notch to upper abdomen without IV contrast per standard departmental protocol. Sagittal and coronal reformatted images were also obtained and reviewed. One or more of the following techniques was used for dose reduction: Automated exposure control, adjustment of the mA and/or kV according to patient size, use of iterative reconstruction technique. DLP: 48 mGy-cm COMPARISON: Comparison is made with the prior examination dated 11/27/2023. FINDINGS: Lung nodules: Again seen is a 9 x 4 mm nodule in the right lower lobe (series 4, image 95). There is a 5 mm nodule in the left lower lobe (series 4, image 76) which is also stable. No new pulmonary nodules are identified. Emphysema: none Coronary Calcification: mild Aortic Arch Calcification: mild Potentially Significant Incidentals : none Additional Chest Findings: There is no pleural or pericardial effusion. No mediastinal or axillary lymphadenopathy is identified. Visualized upper abdomen: The visualized portions of the liver, spleen, and right adrenal gland have an unremarkable unenhanced appearance. Again seen is a 2.0 cm left adrenal adenoma. CT/CT lung screening IMPRESSION: No suspicious pulmonary nodules are identified. LUNG-RADS ASSESSMENT: Lung-RADS 2: Benign MANAGEMENT: Continue annual screening with LDCT in 12 months Category S: N/A Electronically signed by: Junior Wolf MD 12/08/2024 11:39 AM EDT RP Dictated By: Junior Wolf MD Signed By: <Electronically signed by Junior Wolf MD in OV> 12/08/24 1139 DD/ 0821 TD/TT: 12/08/24 0847 Brim Stitcher: Assessment & Plan Assessment & Plan (1) COPD (chronic obstructive pulmonary disease): Code(s): J44.9 - Chronic obstructive pulmonary disease, unspecified Category: Medical (2) Environmental allergies: Code(s): Z91.09 - Other allergy status, other than to drugs and biological substances Category: Medical (3) Nicotine dependence, cigarettes, uncomplicated: Comment: (current smoker - onset 17yo, 1/2ppd-1ppd x 51yrs, 30phy, +fam hx lung ca) Code(s): F17.210 - Nicotine dependence, cigarettes, uncomplicated Category: Medical (4) Multiple pulmonary nodules: Code(s): R91.8 - Other nonspecific abnormal finding of lung field Category: Medical Plan Will treat bronchitic symptoms with azithromycin and prednisone. Previously sent flutter valve to improve expectoration of mucous however had difficulties using. Reeducated patient on use. Advised to continue Trelegy and DuoNeb, will send s upply order for nebulizer today. Smoking cessation reviewed, patient working towards quitting. Reviewed LDCT which revealed mild emphysematous changes as well as stable pulmonary nodule. Will have repeat LDCT in one year. Patient also reports worsening allergic symptoms, RAST negative, will enter referral to restorative art embalmer. Recommended d/c zyrtec and trial xyzal, as she reports suboptimal effect. All questions were answered and patient is in agreement of plan. Will follow up in 3 months or sooner if needed. Medications: New levocetirizine (Xyzal) 5 mg PO DAILY 30 tabs 3RF azithromycin For 250 mg dose pack: take 500 mg today (day 1), then 250 mg for 4 days (days 2-5) PO 6 tabs 0RF prednisone see taper instructions; 40 mg Daily x3 days, 30 mg daily x3 days, 20 mg daily x3 days, 10 mg daily x3 days 10 mg PO DIRECTED 30 tabs 0RF Coding Level of Care Code Est Pt Level 4 (84295) Diagnoses COPD (chronic obstructive pulmonary disease) J44.9 Environmental allergies Z91.09 Nicotine dependence, cigarettes, uncomplicated F17.210 Multiple pulmonary nodules R91.8
== END 2024-12-28 09:55 | disposition home or self-care (01) ==
LOC: HO.HPS 09:24
PROVIDERS: PCP General Practice; Visit Provider Nurse Practitioner Family
DX: J44.9 Chronic obstructive pulmonary disease, unspecified (principal); Z91.09 Other allergy status, other than to drugs and biological substances; F17.210 Nicotine dependence, cigarettes, uncomplicated; R91.8 Other nonspecific abnormal finding of lung field
CPT/HCPCS: 99214

== ENCOUNTER → 2024-12-28 09:23 | Outpatient (BNVA) | payer MEDICARE, MEDICAID, SELFPAY | PROVIDERS: PCP General Practice; Visit Provider Nurse Practitioner Family | DX: Z91.09 Other allergy status, other than to drugs and biological substances (principal); J44.9 Chronic obstructive pulmonary disease, unspecified; R91.8 Other nonspecific abnormal finding of lung field; F17.210 Nicotine dependence, cigarettes, uncomplicated | CPT/HCPCS: 99212 ==

== ENCOUNTER 2025-02-11 08:04 | Outpatient (REF) | payer MEDICARE, MEDICAID, SELFPAY ==
--- OUTSIDE RECORDS SUMMARY | 2025-02-11 08:08 | XMS_ITS | Encounter Summary ---
Author Organization [employer] Address [address] [place] [address] Care Team Providers Care Low Pressure Boiler Operator Name Role Phone Melisa Watkins MD Primary Care Provider [phone] Encounter Details Date Type Department Care Team (Late st Contact Info) Description 04/01/2024 Orders Only [facility] [address] [place], [place] [phone] Melisa Watkins MD [address] [place] [address] Screening for cervical cancer (Primary Dx) Social [...] as of this encounter Plan of Treatment Scheduled Orders Name Type Priority Associated Diagnoses Orde r Schedule HPV mRNA E6/E7 w/Reflex to HPV Genotypes 16, 18/45 Pathology and Cytology Routine Screening for cervical cancer Expected: 04/07/2024, Expires: 04/07/2025 documented as of this encounter Visit Diagnoses Diagnosis Screening for cervical cancer- Primary Screening for malignant neoplasm of the cervix documented in this encounter Care Teams Low Pressure Boiler Operator Relationship Specialty Start Date End Date Melisa Watkins MD [address] [place] [phone] PCP - General Family Medicine 11/07/20 documented as of this encounter
--- OUTSIDE RECORDS SUMMARY | 2025-02-11 08:08 | XMS_ITS | Encounter Summary ---
Author Organization [employer] Address [address] [facility] 7[address] [place] [address] Care Team Providers Care Wine Master Name Role Phone Melisa Watkins MD Primary Care Provider [phone] Reason for Visit * Reason Comments Med Refill Encounter Details Date Type Department Care Team ([facility] Contact Info) Description 05/20/2024 Refill [facility] [address] [place], [place] [phone] Melisa Watkins MD [address] [place], [place] [phone] Social History Tobacco Use Types Packs/Day Years [...] as of this encounter Plan of Treatment Not on file documented as of this encounter Visit Diagnoses Not on filedocumented in this encounter Care Teams Wine Master Relationship Specialty Start Date End Date Melisa Watkins MD [address] [place] [address] PCP - General Family Medicine 11/07/20 documented as of this encounter
--- OUTSIDE RECORDS SUMMARY | 2025-02-11 08:08 | XMS_ITS | Encounter Summary ---
Author Organization [employer] Address [address] [facility] 7t [place] [address] Care Team Providers Care Civilian Technician Name Role Phone Melisa Watkins MD Primary Care Provider [phone] Encounter Details Date Type Department Care Team (Late st Contact Info) Description 12/12/2022 Orders Only [facility] [address] [place] [address] Maria Del Rosario Solo LPN Social History [...] on filedocumented in this encounter Care Teams Civilian Technician Relationship Specialty Start Date End Date Melisa Watkins MD [address] [place] [phone] PCP - General Family Medicine 11/07/20 documented as of this encounter
--- OUTSIDE RECORDS SUMMARY | 2025-02-11 08:08 | XMS_ITS | Encounter Summary ---
Author Organization [employer] Address [address] [facility] 7t [place] [address] Care Team Providers Care Hydrometer Calibrator Name Role Phone Melisa Watkins MD Primary Care Provider [phone] Encounter Details Date Type Department Care Team (Late st Contact Info) Description 12/28/2022 Orders Only [facility] [address] [place] [address] Melisa Watkins MD [address] [place] [address] Social History Tobacco Use Types Packs/Day Years [...] on filedocumented in this encounter Care Teams Hydrometer Calibrator Relationship Specialty Start Date End Date Melisa Watkins MD [address] [place], [place] [phone] PCP - General Family Medicine 11/07/20 documented as of this encounter
--- OUTSIDE RECORDS SUMMARY | 2025-02-11 08:08 | XMS_ITS | Encounter Summary ---
Author Organization [employer] Address [address] [facility] 7[address] [place] [address] Care Team Providers Care Manager Transplant Name Role Phone Melisa Watkins MD Primary Care Provider [phone] Reason for Visit * Reason Comments Med Refill Encounter Details Date Type Department Care Team ([facility] st Contact Info) Description 06/04/2023 Refill [facility] [address] [place] [address] [phone] Pj Gibson MD [address] [place], [place] [phone] Social History Tobacco Use Types Packs/Day Years [...] on filedocumented in this encounter Care Teams Manager Transplant Relationship Specialty Start Date End Date Melisa Watkins MD [address] [place] [address] [phone] PCP - General Family Medicine 11/07/20 documented as of this encounter
--- OUTSIDE RECORDS SUMMARY | 2025-02-11 08:08 | XMS_ITS | Encounter Summary ---
Author Organization [employer] Address [address] [facility] [address]t [place] [address] Care Team Providers Care Shear Setter Name Role Phone Melisa Watkins MD Primary Care Provider [phone] Encounter Details Date Type Department Care Team (Late st Contact Info) Description 03/01/2023 Orders Only [facility] MED[facility]INE [address] [place] [address] [phone] Melisa Watkins MD [address] [place], [place] [phone] Chronic obstructive pulmonary disease, unspecified COPD type [...] Primary documented in this encounter Care Teams Shear Setter Relationship Specialty Start Date End Date Melisa Watkins MD [address] [place] [phone] PCP - General Family Medicine 2/8/21 documented as of this encounter
--- OUTSIDE RECORDS SUMMARY | 2025-02-11 08:08 | XMS_ITS | Encounter Summary ---
Author Organization [employer] Address [address] [facility] 7t [place] [address] Care Team Providers Care Greenstone Polisher Operator Name Role Phone Melisa Watkins MD Primary Care Provider [phone] Encounter Details Date Type Department Care Team (Late st Contact Info) Description 09/26/2022 Orders Only [facility] [address] [place] [address] Maria Del Rosario Solo LPN Social History [...] on filedocumented in this encounter Care Teams Greenstone Polisher Operator Relationship Specialty Start Date End Date Melisa Watkins MD [address] [place] [phone] PCP - General Family Medicine 11/07/20 documented as of this encounter
--- OUTSIDE RECORDS SUMMARY | 2025-02-11 08:08 | XMS_ITS | Encounter Summary ---
Author Organization [employer] Address [address] [facility] [address]t [place] [address] Care Team Providers Care Children'S Tutor Nursery Name Role Phone Melisa Watkins MD Primary Care Provider [phone] Encounter Details Date Type Department Care Team (Late st Contact Info) Description 01/17/2023 Orders Only [facility] [address] [place] [address] Maria Del Rosario Solo LPN Social History [...] on file documented as of this encounter Procedures Procedure Name Priority Date/Time Associated Diagnosis Comments BI MAMMOGRAM SCREENING TOMOSYNTHESIS BILATERAL Routine 01/17/2023 8:11 AM EDT documented in this encounter Results * BI Mammogram Screening Tomosynthesis Bilateral (01/17/2023 8:11 AM EDT) Anatomical Region Laterality Modality Breast Bilateral Mammography 01/17/2023 8:11 AM EDT Narrative 01/18/2023 9:47 AM EDT ? [facility] ? [address] ?[place] [address] ? Mammography Report ? Signed ? Patient: Cordelia,Elena E ?MR#: [id number] ? : 1955 ?Acct:[id number] ? Age/Sex: 67 / F ?ADM Date: 01/17/23 ? Loc: HO.MAMMO ? Attending Dr: Melisa Watkins MD ? Ordering Physician: Melsia Watkins ?Results: 1Negative ? Date of Service: 01/17/23 ?Follow Up: 1 Year From Orig ?? inal Mammogram ? Procedure(s): MM tomosynthesis screening BI ?? Accession Number(s): [id number] ? cc: Melisa Watkins ? EXAMINATION: ?? [...] signed by Russ Tanner MD in OV> ?01/18/2344 ? DD/ 0811 ? TD/TT: ? Cook Apprentice Pastry: SK ? Procedure Note Donotbryceinterpreter, Image - 03/28/2023 [facility] [address] [place], [place] [address] Mammography Report Signed Patient: Elena Storey EMR#: [id number] : 8Acct:[id number] Age/Sex: 67 / FADM Date: 01/17/23 Loc: HO.MAMMO Attending Dr: Melisa Watkins MD Ordering Physician: Red Watkinsults: 1Negative Date of Service: 01/17/23Follow Up: 1 Year From Orig inal Mammogram Procedure(s): MM tomosynthesis screening BI Accession Number(s): [id number] cc: Melisa Watkins EXAMINATION: MM SCREENING DIGITAL [...] signed by Russ Tanner MD in OV> 01/18/2344 DD/ 0811 TD/TT: Cook Apprentice Pastry: VASQUEZ [facility] External Provider IMG BI PROCEDURES Edited Result - Final documented in this encounter Visit Diagnoses Not on filedocumented in this encounter Care Teams Children'S Tutor Nursery Relationship Specialty Start Date End Date Melisa Watkins MD [address] [place] [phone] PCP - General Family Medicine 11/07/20 documented as of this encounter
--- OUTSIDE RECORDS SUMMARY | 2025-02-11 08:09 | XMS_ITS | Data Portability ---
Author Organization [place] - [facility], Allergy Address [address] [place] [id number] Care Team Providers Care Client Representative Name Role Phone JENNIFER SALDAÑA Referring Provider [phone] JENNIFER SALDAÑA Primary Care Provider [phone] Assessment Encounter Date Assessment Date Assessment LastModified [...] Details Recorded Time Otalgia of left ear 9989815023 Active 2023 ARMANI PATE MD [address] [place] [address], [address], [facility] - [facility] 4 14:48:26 Chronic rhinitis 57024499 Active 2023 ARMANI PATE MD [address] [place] [address], [phone], [facility] - [facility] 4 14:48:31 Abnormal auditory perception 15311028 Active 2023 ARMANI PATE MD [address] [place] [address], [address], [facility] - [facility] 4 14:48:44 Sensorineur al hearing loss of bilateral ears 502240983 Active 2023 BONNIE ELLIOTT MA, CCC-A [address], [place], [address], [place] - [facility] 4 15:25:11 Nasal obstruction 007497762 Active 2023 IVETH MCWILLIAMS MD [address] [facility] [address], [place], [address], [place] - [facility] 4 11:50:55 Incompetenc e of nasal valve 001890729 Active 2023 IVETH MCWILLIAMS MD [address] [facility] [address], [place], [address], [place] - [facility] 4 11:51:01 Stenosis of nasal valve 5782873657486 4106 Active 2023 IVETH MCWILLIAMS MD [address] [facility] [address], [place], [address], [place] - [facility] 4 11:52:18 Bilateral dermatochal asis of upper eyelids Active 2023 IVETH MCWILLIAMS MD [address] [facility] [address], [place], [address], [place] - [facility] 11:52:24 Problem Notes None recorded. Procedures Surgical History Date Name Laterality Status Provider Name and Address Organization Details Recorded Time Nasal Endoscopy completed IVETH MCWILLIAMS MD [address] [facility],[place] [address], [place], [address], [facility] - [facility] 07/28/2024 11:37:39 Comp Audio with Tymps - 67764 & 04208 completed BONNIE ELLIOTT MA, JAY-A [address] [facility] [address], [place], [address], [facility] - [facility] 06/26/2024 15:25:00 Imaging Results Imaging Date Name Status [facility]Modified by [facility] Details LastModified Time 06/29/2024 audiogram completed BARCODE Information no t available 06/29/2024 14:48:43 Procedure Notes None recorded. Medical Equipment None Reported. Allergies Allergen ID Allergen Name Allergen Category Reaction Reaction Severity Criticality Documentation Date Start Date Code Code System Note Provider Name and Address Organization Details Recorded Time 760638 Substance with sulfonami de structure and antibacte rial mechanism of action (substanc e) medicatio n Not available Not available Not available 06/26/2024 25018 8003 SNOMED Radha rios [place] - [facility] 4 14:30:21 Medications Name Sig Start [...] bromide 21 mcg (0.03 %) nasal spray [place] 2 sprays twice a day by intranasa [...] Details Last Updated DateTime 06/26/2024 164.47 cm 62494.74 g Radha Shepherd No se [facility] 06/26/2024 14:34:56 Date Recorded Body height Body weight Provider Name and Address Organization Details Last Updated DateTime 07/28/2024 164.47 cm 76766.74 g Radha Shepherd No [facility] 07/28/2024 08:28:02 Social History Question Answer Notes LastModified by Organizat ion Details LastModified Time Tobacco Smoking Status Current Every Day Smoker LONNIE Herman [facility] 06/26/2024 14:32:27 What Is Your Current Pack Years? 20-29packyear s Information not available 06/26/2024 How Many Years Have You Smoked Tobacco? 50 Information not available 06/26/2024 Sex: Unknown Functional Status Question Answer Note LastModified by Organizat ion Details LastModified Time What is your level of alcohol consumption? Occasional rare Information not available 06/26/2024 Mental Status None recorded. Family History Nothing Reported. Medical History Condition Response Hyperlipidemia Y Hypertension Y COPD Y Gynecological HistoryNo gynecological history recorded. Obstetrics History GPAL:G 0 P 0 0 0 0 Past Encounters Encounter ID Performer Location Encounter Start Date Encounter Closed Date Diagnosis/Indication Diagnosis SNOMED-CT Code Diagnosis ICD10 Code Diagnosis Note [id number] ARMANI ACUNA MD [facility] [address] [address] 06/26/2024 14:17:11 06/29/2024 07:54:19 Otalgia of left ear 6258851172 H92.02 no evidence no evidence of middle ear fluid. Left TMJ is tender. . If she has persistent symptoms consider fiberoptic laryngosco py. In the meantime suggest warm compresses , soft diet, massage and ibuprofen. She will follow-up in 6 weeks Chronic rhinitis 9830590 6 J31.0 Abnormal a uditory perception 79794521 H93.292 [id number] BONNIE ELLIOTT MA, CCC-A [facility] [address] [address] 06/26/2024 15:24:19 06/29/2024 07:55:13 Sensorineural hearing loss of bilateral ears 564720222 H90.3 Audiologic al evaluation results: Right ear: [...] Cou ld not maintain a hermetic seal}} [id number] IVETH MCWILLIAMS MD [facility] [address] [address] 07/28/2024 08:23:08 07/28/2024 08:58:40 Nasal obstruction 345539329 J34.89 Bilateral dermatochalasis of upper eyelids 3311362082 1576523 H02.831 H02.834 Stenosis o f nasal valve 9672620450 7887035 J34.8202 Health Concerns Section Related Observation LastModified by Organization Detai ls LastModified Time None Recorded Concern Status LastModified by Organization Details LastModified Time None Recorded Advance Directives Directive None Recorded Payers Insurance Date Sequence Insurance Name Policy Number Policy [place] Covered Member ID [place] Member ID Guarantor Name 12/15/2024 1 [place] [employer] Elena Storey [id number] Elena Storey 12/15/2024 2 [place] [facility] Elena Storey [id number] Elena Storey Notes Date Note Type Note [...] bromide SNOT= 15Nose= 40 ARMANI MACDONALD MD [address] [facility],[address], [address], [facility] - [facility] 06/26/2024 16:34:45 07/28/2024 text/html This is a 68-year-old woman who presents today for evaluation of nasal obstruction. She is here as a referral from Dr. Gary Mattson. She has had difficulty breathing through her mouth and nose for a long time. She feels like the obstruction is on both sides, but this also changes from [id number]-jj-ergr. On a scale of 1 to 10, [...] eyelids. ? ? ? IVETH MCWILLIAMS MD [address] [facility],[place] [address], [place], [address], [facility] 07/28/2024 11:54:46 OBGyn Episode No OBEpisode recorded.
--- OUTSIDE RECORDS SUMMARY | 2025-02-11 08:09 | XMS_ITS | Encounter Summary ---
Author Organization [employer] Address [address] [place] [address] Care Team Providers Care Coconut Jelly Roller Name Role Phone Melisa Watkins MD Primary Care Provider [phone] Encounter Details Date Type Department Care Team (Late st Contact Info) Description 11/26/2023 Orders Only [facility] [address] [place] [address] Melisa Watkins MD [address] [place] [address] Social History Tobacco Use Types Packs/Day Years Used Date Smoking Tobacco: Every Day Cigarettes Smokeless Tobacco: Never Alcohol Use Standard Drinks/Week Comments Not Currently 0 (1 standard drink = 0.6 oz pur e alcohol) Housing Stability Answer Date Recorded What is your housing situation today? I have alicia eriberto 07/21/[address] you li [...] the past 12 months, has t he [employer], [employer], oil or water [employer] threatened to shut off services in your [...] EST Narrative 11/28/2023 3:57 PM EST ? [facility] ?[address] ?[place] [address] ? CT Scan Report ? Signed ? Patient: Elena Storey ?MR#: [id number] ?? [id number] ? : 1955 ?Acct:[id number] ? Age/Sex: 67 / F ?ADM Date: 11/27/23 ? Loc: HO.CT ? Attending Dr: Nohelia Colvin PA-C ? Ordering Physician: Serene Rose NP ?? Date of Service: 11/27/23 ?? Procedure(s): CT lung screening ?? Accession Number(s): [id number] ? cc: Melisa Watkins; Serene Rose NP ? EXAMINATION: ?? CT CHEST LOW-DOSE SCREENING [...] 1554 ? DD/ 1134 ? TD/TT: ? Cloth Printer: ? Procedure Note [place], Image - 11/28/[address] [address] [place] Scan Report Signed Patient: Elena Storey EMR#: [id number] : 8Acct:[id number] Age/Sex: 67 / FADM Date: 11/27/23 Loc: .CT Attending Dr: Nohelia Colvin PA-C Ordering Physician: Serene Rose NP Date of Service: 11/27/23 Procedure(s): CT lung screening Accession Number(s): [id number] cc: Melisa Watkins; Serene Rose NP EXAMINATION: [...] in OV> 11/28/23 1554 DD/ 1134 TD/TT: Cloth Printer: [facility] External Provider IMG CT PROCEDURES Final Result documented in this encounter Visit Diagnoses Not on filedocumented in this encounter Care Teams Coconut Jelly Roller Relationship Specialty Start Date End Date Melisa Watkins MD [address] [place] [address] PCP - General Family Medicine 11/07/20 documented as of this encounter
--- OUTSIDE RECORDS SUMMARY | 2025-02-11 08:09 | XMS_ITS | Clinical Summary ---
Author Organization [employer] Address [address] [place] [address] [address] [place] [address] Care Team Providers Care Tomography Technologist Name Role Phone Melisa Watkins MD Primary Care Provider [phone] Allergies Active Allergy Reactions Criticality Noted Date Comments Sulfamethoxazole 12/27/2014 Trimethoprim 12/27/2014 Medications Ventolin HFA 108 (90 Base) MCG/ACT inhalerIndication s:Mild persistent asthma without complication INHALE 2 PUFFS BY MOUTH EVERY 4 TO 6 HOURS NEEDED 18 g 11 12/13/19 23 Active Multiple Vitamins-Minerals (PreserVision AREDS 2) capsule take 1 capsule by oral route 2 times every day with meals Active Misc. Devices (Pulse Oximeter For Finger) misc 1 each 2 times daily. 1 each 04/08/20 23 Active Misc. Devices (Pulse Oximeter Deluxe) misc USE DIRECTED TWICE DAILY 04/08/20 23 Active albuterol (2.5 MG/3ML) 0.083% nebulizer solutionIndicatio ns:Chronic obstructive pulmonary disease, unspecified (CMS/HCC) INHALE 1 AMPULE USING A NEBULIZER EVERY 12 HOURS NEEDED 180 mL 1 01/27/20 24 Active Trelegy Ellipta 200-62.5-25 MCG/ACT aerosol powder INHALE 1 PUFF BY MOUTH EVERY DAY AT THE SAME TIME 03/16/20 24 Active ipratropium (Atrovent) 0.03 % nasal spray Administer 1 spray into each nostril 2 times daily. 02/17/20 24 Active ipratropium-albut natasha (Duo-Neb) 0.5-2.5 mg/3 mL nebulizer solution INHALE 1 AMPULE USING A NEBULIZER TWICE DAILY NEEDED FOR WHEEZING 03/17/20 24 Active lisinopril 10 MG tablet TAKE 1 TABLET BY MOUTH EVERY DAY 90 tablet 3 07/20/20 24 Active D3 Super Strength 50 MCG (2000 UT) capsule TAKE 1 CAPSULE BY MOUTH EVERY DAY 90 capsule 3 07/20/20 24 Active simethicone (Mylicon) 80 MG chewable tablet Chew 1 tablet (80 mg) every 6 (six) hours if needed for flatulence. CHEW AND SWALLOW 1 TABLET BY MOUTH FOUR TIMES DAILY 120 tablet 07/27/20 24 Active ibuprofen 800 MG tablet TAKE 1 TABLET BY MOUTH THREE TIMES DAILY NEEDED 90 tablet 1 10/09/19 25 Active simvastatin (Zocor) 20 MG tabletIndications :Other hyperlipidemia TAKE 1 TABLET BY MOUTH EVERY EVENING 90 tablet 3 12/09/19 25 Active omeprazole (PriLOSEC) [address] capsuleIndication s:Gastroesophagea l reflux disease without esophagitis TAKE 1 CAPSULE BY MOUTH EVERY DAY BEFORE BREAKFAST 90 capsule 1 12/19/19 25 Active cetirizine (ZyrTEC) 10 MG tablet TAKE 1 TABLET BY MOUTH EVERY DAY 90 tablet 3 01/20/20 25 Active cetirizine (ZyrTEC) 10 MG tablet TAKE 1 TABLET BY MOUTH EVERY DAY 90 tablet 3 01/27/20 24 2024 Discontinued Active Problems Problem Noted Date Diagnosed Date Screening for lung cancer 12/10/2024 Overview (12/10/2024): 10/2023 Lirads 2 11/2024 Lirads 2 Dermatochalasis of right upper eyelid 07/28/2024 Collapse of nasal valve 07/28/2024 Nasal valve stenosis 07/28/2024 Abnormal auditory perception 06/26/2024 Sensorineural hearing loss (SNHL) of both ears 0 06/26/2024 Screening for cervical cancer 03/30/2024 Environmental allergies 01/13/2024 Assessment & Plan (01/13/2024 4:45 PM EDT): Refer to ENT for allergies/sinusitis/narrow nasal passages Stuffy and runny nose 01/13/2024 Assessment & Plan (01/13/2024 4:46 PM EDT): Refer to ENT COPD exacerbation 01/21/2023 Assessment & Plan (12/10/2024 11:08 AM EDT): Prednisone 40mg daily x 5 days Use flutter valve Continue home COPD meds Hold smoking as much as possible Assessment & Plan (08/02/2023 12:29 PM EDT): [...] ER Medications (abx, steroid, Mucinex) sent to [facility] due to weekend Assessment & Plan (01/21/2023 [...] TRICE prn Paperwork given for RMV disability placard Does not qualify for home O2 based [...] Encounters Date Type Department Care Team Description 01/17/2025 Refill [facility] [address] [place] [address] Melisa Watkins MD 12/17/2024 Refill [facility] [address] [place] [address] Name, MD Noe Gastroesophageal reflux disease without esophagitis 12/16/2024 Telephone [facility] [place] [address] Melisa Watkins MD 12/11/2024 Population Health Risk Score [facility] () Department [address] [place] [address] [phone] Provider, Population Health Generic 12/08/2024 11:30 AM EDT Office Visit [facility] [address] Melisa Watkins MD COPD exacerbation (CMS/HCC) (Primary Dx); Encounter for immunization; Chronic obstructive pulmonary disease, unspecified COPD type (CMS/HCC); Dietary counseling; Exercise counseling; Overweight; Essential hypertension; Screening for lung cancer 12/08/2024 Orders Only [facility] External Provider, [facility] 12/08/2024 Travel 12/08/2024 Refill [facility] [place] [address] Melisa Watkins MD Other hyperlipidemia 12/01/2024 Travel 12/01/2024 Patient Outreach [facility] [address] Melisa Watkins MD Pre-visit Planning (SDOH screening negative and tobacco screening negative) from Last 3 Months Immunizations Immunization Administration Dates Next Due Influenza High-dose Quadrivalent Preservative Fr ee 08/02/2023 Influenza Injectable Quadriv alant Preservative Free IIV4 MDCK 08/16/2022 Influenza injectable quadrivalent preservative f ree 07/26/2020,07/28/2019 Influenza, IIV3, injectable 07/20/2021 Influenza, seasonal, injectable, preservative fr ee 12/08/2024 Pfizer Covid-19 Vaccine 12+ 12/08/2024 Pneumococcal Conjugate PCV 20 06/01/2022 Pneumococcal Polysaccharide [...] Sign Reading Time Taken Comments Blood Pressure 147/67 12/08/2024 11:47 AM EDT Pulse 73 12/08/2024 11:47 AM EDT Temperature 36.9 ??C (98.5 ??F) 12/08/2024 11:47 AM E DT Respiratory Rate 17 12/08/2024 11:47 AM EDT Oxygen Saturation 95% 12/08/2024 11:47 AM EDT Inhaled Oxygen Concentration - - Weight 78.7 kg (173 lb 9.6 oz) 12/08/2024 11:47 AM EDT Height 163.8 cm (5' 4.5 ) 12/08/2024 11:47 AM ED T Body Mass Index 29.34 12/08/2024 11:47 AM EDT Plan of Treatment Health Maintenance Due Date Last Done Comments CT Colonography 1955 Colonoscopy 1957 Colorectal Cancer Screening 1955 FIT DNA/Cologuard 1957 FIT 1957 FOBT 1957 Sigmoidoscopy 1957 Alcohol/Substance Use Screening 1969 Hepatitis C Screening 12/10/1975 Zoster Vaccines (1 of 2) 12/10/2007 RSV Patients and Patients Aged 60 years or older (1 - Risk 60-74 years 1-dose series) 2017 Depression Screening 01/22/2024 01/21/2023, 01/22/20 23 Mammogram 01/20/2025 01/21/2024, 12/30, 01/17/2023, Additional history exists COVID-19 Vaccine ( season) 2025 12/08/2024, 02/08/2021, 01/11/2021 SDOH Screening 12/01/2025 12/01/2024 Tobacco Screening 12/08/2025 12/08/2024 HPV/Cotest 03/31/2027 04/23/2017 Pap Smear 03/31/2027 03/31/2024, 04/05/2021 DTaP/Tdap/Td Vaccines (2 - Td or Tdap) 06/26/2028 06/26/2018 Lipid Panel 01/19/2029 01/20/2024 Pneumococcal Vaccine: 50+ Years Completed 06/01/2022, 07/28/2019 Influenza Vaccine Completed 12/08/2024, , 08/16/2022, Additional history exists HIB Vaccines Aged Out No longer eligi [...] patient's age to complete this topic Meningococcal B Vaccine Aged Out No l onger eligible based on patient's age to complete [...] Associated Diagnosis Comments LDCT LUNG SCREENING Routine 12/08/2024 8 :21 AM EDT THINPREP?? IMAGING PAP REFL HPV MRNA(IF ASCUS,ASC-H,LSIL) Routine 03/31/2024 9:22 AM EDT BI MAMMOGRAM SCREENING TOMOSYNTHESIS BILATERAL Routine 01/21/2024 9:58 AM EDT LIPID PANEL, STANDARD Routine 01/20/2024 9:03 AM EDT Other hyperlipidemia MARY HISTORICAL HPV MRNA E6/E7 Routine 04/23/2017 10:30 AM EDT from Last 3 Months or Most Recently Relevant to Health Maintenance Results * CT Lung Screening Low dose (12/08/2024 8:21 AM EDT) Anatomical Region Laterality Modality Lung Computed Tomogra phy 12/08/2024 8:21 AM EDT Narrative 12/08/2024 11:42 AM EDT ? [facility] ?[address] ?[place] [address] ? CT Scan Report ? Signed ? Patient: Cordelia,Elena E ?MR#: [id number] ?? [id number] ? : 1955 ?Acct:[id number] ? Age/Sex: 68 / F ?ADM Date: 03/11/25 ? Loc: HO.CT ? Attending Dr: Nohelia Colvin PA-C ? Ordering Physician: Nohelia Colvin PA-C ?? Date of Service: 12/08/24 ?? Procedure(s): CT lung screening ?? Accession Number(s): [id number] ? cc: Melisa Watkins; Nohelia Colvin PA-C ? Report Number: ?? [id number]: Total DLP = ?? 48.00 mGy-cm ?? EXAMINATION: ??CT LUNG SCREENING ? HISTORY: Smoking history ? TECHNIQUE: Low dose axial images were obtained from the sternal notch ?? to upper abdomen without IV contrast per standard departmental ?? protocol. ??Sagittal and coronal reformatted images were also obtained ?? and reviewed. ??One or more of the following techniques was used for ?? dose reduction: Automated exposure control, adjustment of the mA and/or ?? kV according to patient size, use of iterative reconstruction technique. ? DLP: 48 mGy-cm ? COMPARISON: ??Comparison is made with the prior examination dated ?? 11/27/2023. ? FINDINGS: ? Lung nodules: Again seen is a 9 x 4 mm nodule in the right lower lobe ?? (series 4, image 95). There is a 5 mm nodule in the left lower lobe ?? (series 4, image 76) which is also stable. No new pulmonary nodules are ?? identified. ? Emphysema: none ? Coronary Calcification: ??mild ? Aortic Arch Calcification: ??mild ? Potentially Significant Incidentals : none ? Additional Chest Findings: There is no pleural or pericardial effusion. ?? No mediastinal or axillary lymphadenopathy is identified. ? Visualized upper abdomen: The visualized portions of the liver, spleen, ?? and right adrenal gland have an unremarkable unenhanced appearance. ?? Again seen is a 2.0 cm left adrenal adenoma. ? CT/CT lung screening ?? IMPRESSION: ?? No suspicious pulmonary nodules are identified. ? LUNG-RADS ASSESSMENT: ?? Lung-RADS 2: Benign ? MANAGEMENT: ?? Continue annual screening with LDCT in 12 months ? Category S: N/A ? Electronically signed by: ??Junior Wolf MD ??12/08/2024 11:39 AM EDT ?? RP ? Dictated By: ?Junior Wolf MD ? Signed By: ?<Electronically signed by Junior Wolf MD in OV> ?12/08/241138 ? DD/ 0821 ? TD/TT: 12/08/24 0847 ? Drying Room Supervisor: ? Procedure Note Donotbryceinterpreter, Image - 12/08/[address] [address] [address] Scan Report Signed Patient: Elena Storey EMR#: [id number] : 8Acct:[id number] Age/Sex: 68 / FADM Date: 12/08/24 Loc: HO.CT Attending Dr: Nohelia Colvin PA-C Ordering Physician: Nohelia Colvin PA-C Date of Service: 12/08/24 Procedure(s): CT lung screening Accession Number(s): [id number] cc: Melisa Watkins; Nohelia Colvin PA-C Report Number: [id number]: Total DLP = 48.00 mGy-cm EXAMINATION: CT LUNG SCREENING HISTORY: Smoking history TECHNIQUE: Low dose axial images were obtained from the sternal notch to upper abdomen without IV contrast per standard departmental protocol. Sagittal and coronal reformatted images were also obtained and reviewed. One or more of the following techniques was used for dose reduction: Automated exposure control, adjustment of the mA and/or kV according to patient size, use of iterative reconstruction technique. DLP: 48 mGy-cm COMPARISON: Comparison is made with the prior examination dated 11/27/2023. FINDINGS: Lung nodules: Again seen is a 9 x 4 mm nodule in the right lower lobe (series 4, image 95). There is a 5 mm nodule in the left lower lobe (series 4, image 76) which is also stable. No new pulmonary nodules are identified. Emphysema: none Coronary Calcification: mild Aortic Arch Calcification: mild Potentially Significant Incidentals : none Additional Chest Findings: There is no pleural or pericardial effusion. No mediastinal or axillary lymphadenopathy is identified. Visualized upper abdomen: The visualized portions of the liver, spleen, and right adrenal gland have an unremarkable unenhanced appearance. Again seen is a 2.0 cm left adrenal adenoma. CT/CT lung screening IMPRESSION: No suspicious pulmonary nodules are identified. LUNG-RADS ASSESSMENT: Lung-RADS 2: Benign MANAGEMENT: Continue annual screening with LDCT in 12 months Category S: N/A Electronically signed by: Junior Wolf MD 12/08/2024 11:39 AM EDT RP Dictated By: Junior Wolf MD Signed By: <Electronically signed by Junior Wolf MD in OV> 12/08/24 1139 DD/ 0821 TD/TT: 12/08/24 0847 Drying Room Supervisor: [facility] External Provider IMG CT PROCEDURES Final Result * ThinPrep?? Imaging Pap Refl HPV mRNA(if ASCUS,ASC-H,LSIL,HSIL,EVIE)Refl Genotype (03/31/2024 9:22 AM EDT) HPV nRNA E6/E7 [facility] HPV 16,18/45 [facility] SOURCE: SEE NOTE [facility] Comment:None given Report Status: [facility] Clinical Information: SEE NOTE [facility] Comment:None given LMP: SEE NOTE [facility] Comment:NONE GIVEN Prev. PAP: SEE NOTE [facility] Comment:NONE GIVEN Prev. BX: SEE NOTE [facility] Comment:NONE GIVEN Statement Of Adequacy: SEE NOTE [facility] Comment:Satisfactory for karen luation.Endocervical/transformation zone componentpresent. General Categorization: [facility] Interpretation/Result: SEE NOTE [facility] Comment:Cytology Results: Ne gative for intraepitheliallesion or malignancy. Cytology Comment SEE NOTE [facility] Comment:This Pap test has be en evaluated with computerassisted technology. Christmas Tree Contractor: SEE NOTE [facility] Comment:WAC, CT(ASCP)CT scre ening location: [address] [address] Review Christmas Tree Contractor: GAP [facility] Pathologist [facility] PAP Infection [facility] See Note SEE NOTE [facility] Comment:EXPLANATORY NOTE:The Pap is a screening test for cervical cancer. It isnot a diagnostic test and is subject to false negativeand false positive results. It is most reliable when asatisfactory sample, regularly obtained, is submittedwith relevant clinical findings and history, and whenthe Pap result is evaluated along with historic andcurrent clinical information.THIS TEST WAS PERFORMED AT:[employer] [address] [phone] NAPOLES MD 03/31/2024 9:22 AM EDT 03/31/2024 1:00 PM EDT Narrative [facility] - 04/07/2024 2:32 PM EDT SEE SCANNED RESULTS IN EMR Melisa Watkins MD LAB CYTOLOGY ORDERABLES Final Result Performing Organization Address City/State/[facility] Co de Phone Number [facility] [address] [place] [address] [phone] * BI Mammogram Screening Tomosynthesis Bilateral (01/21/2024 9:58 AM EDT) Anatomical Region Laterality Modality Breast Bilateral Mammography 01/21/2024 9:58 AM EDT Narrative 02/03/2024 12:27 PM EDT ? [facility] ? [address] ?[place] [address] ? Mammography Report ? Signed ? Patient: Cordelia,Elena E ?MR#: [id number] ?? [id number] ? : 1955 ?Acct:[id number] ? Age/Sex: 68 / F ?ADM Date: 04/23/24 ? Loc: HO.MAMMO ? Attending Dr: Melisa Watkins MD ? Ordering Physician: Melisa Watkins ?Results: 2Benign F ?? indings ? Date of Service: 01/21/24 ?Follow Up: 1 Year From Orig ?? inal Mammogram ? Procedure(s): MM tomosynthesis screening BI ?? Accession Number(s): [id number] ? cc: Melisa Watkins ? EXAMINATION: ?? [...] signed by Oumar Mohr MD in OV> ?02/03/24 1224 ? DD/ 0958 ? TD/TT: ? Drying Room Supervisor: ? Procedure Note Donshelbiter, Image - 02/03/2024 [facility] [address] [place] [address] Mammography Report Signed Patient: Elena Storey EMR#: [id number] : 8Acct:[id number] Age/Sex: 68 / FADM Date: 01/21/24 Loc: HO.MAMMO Attending Dr: Melisa Watkins MD Ordering Physician: Red Watkinsults: 2Benign F indings Date of Service: 01/21/24Follow Up: 1 Year From Orig inal Mammogram Procedure(s): MM tomosynthesis screening BI Accession Number(s): [id number] cc: Melisa Watkins EXAMINATION: MM SCREENING DIGITAL [...] in OV> 02/03/24 1224 DD/ 0958 TD/TT: Drying Room Supervisor: us Melisa Watkins MD IMG BI PROCEDURES Final Result * (ABNORMAL) Lipid Panel, Standard (01/20/2024 9:03 AM EDT) Triglycerides 137 <150 mg/dL [facility] Comment:Desirable Triglyceri de: less than 150 mg/dLBorderline High Triglyceride 150-199 mg/dLHigh Triglyceride: 200-499 mg/dLVery High Triglyceride: greater than or equal to 5OO mg/dL Cholesterol 202(H) <200 mg/dL [facility] Comment:Desirable Cholestero l: less than 200 mg/dLBorderline High Cholesterol: 200-239 mg/dLHigh Cholesterol: greater than 239 mg/dL LDL Cholesterol Calculated 123(H) <100 mg/dL [facility] Comment:Desirable LDL: less than 100 mg/dLNear Optimal/Above Optimal LDL: 110- 129 mg/dLBorderline High LDL: 130-159 mg/dLHigh LDL: 160-189 mg/dLVery High LDL: greater than or equal to 190 mg/dL HDL Cholesterol 52 >40 mg/dL [facility] Comment:Desirable HDL: great er than 40 mg/dL Note: This HDL assay may give artificially low results in patients with liver disease. Blood Venous blood specimen / Unknown 01/20/2024 9:03 AM EDT 01/20/2024 11:31 AM EDT us Melisa Watkins MD LAB BLOOD ORDERABLES Final Res ult Performing Organization Address [facility]/ZIP Co de Phone Number [facility] [address] [place] [address] [phone] * HPV mRNA E6/E7 (04/23/2017 10:30 AM EDT) HPV mRNA E6/E7 Not Detected NOT DETECTED [facility] Comment: This test was performed using the APTIMA(R) HPV Assay ([employer] This assay detects E6/E7 viral messenger RNA (mRNA) from 14 high-risk HPV types (16,18,31,33,35,39,45,51, 52,56,58,59,66,68). For additional information please refer to: http://education.Brandizi/faq/QZN709v5 (This link is being provided for informational/ educational purposes only.) Test Performed by [employer], [facility], [address] [place] [address] Shmuel Fuentes M.D., Ph.D., Director of Laboratories , [facility] [id number] Please note: ??Effective 06/11/2016, HPV testing will be performed using [employer] APTIMA test which targets mRNA. Detecting mRNA instead of DNA, as in older methods, offers significant improvements in specificity. 04/23/2017 10:3 0 AM EDT us Desiree Baltazar NP HISTORICAL/NON ORDERABLE LABS Fi nal Result [facility] [address] from Last 3 Months or Most Recently Relevant to Health Maintenance Insurance [facility] STANDARD MEDICARE Care Teams Tomography Technologist Relationship Specialty Start Date End Date Melisa Watkins MD [address] [place] [address] PCP - General Family Medicine 11/07/20
== END 2025-02-11 08:05 | disposition home or self-care (01) ==
LOC: HO.MAMMO 08:04
PROVIDERS: PCP General Practice; Visit Provider General Practice
DX: Z12.31 Encounter for screening mammogram for malignant neoplasm of breast (principal)
CPT/HCPCS: 77063; 77067

== ENCOUNTER → 2025-02-11 08:15 | Outpatient (BNV) | payer MEDICARE, MEDICAID, SELFPAY | PROVIDERS: PCP General Practice; Visit Provider Internal Medicine | DX: Z12.31 Encounter for screening mammogram for malignant neoplasm of breast (principal) | CPT/HCPCS: 77063; 77067 ==

== ENCOUNTER 2025-02-17 10:04 | Outpatient (AMB) | payer MEDICARE, MEDICAID, SELFPAY ==
[2025-02-17 10:07] VITALS: BP 138/80; PULSE 74; O2SAT 93; BMI 29.9
--- NOTE | 2025-02-17 10:07 | A.OFFVIS_ITS ---
Vital Signs 02/17/25 10:07 Height 5 ft 4 in Weight 174 lb 2 oz BMI 29.9 BP 138/80 Blood Pressure Location Rt brachial Position Sitting Pulse 74 Pulse Source Pulse Oximeter Pulse Oximetry (%) 93 Oxygen Delivery Method Room Air Intake Visit Reasons: sob and dry cough, wheezing Allergies sulfamethoxazole [From BACTRIM DS] Allergy (Unknown, Unverified 02/17/25 10:13) UNKNOWN trimethoprim [From BACTRIM DS] Allergy (Unknown, Unverified 02/17/25 10:13) UNKNOWN HPI HPI sob and dry cough, wheezing: Details: Elena is a pleasant 69 year old female, current smoker with 30 pack year history with underlying severe COPD, HTN and hyperlipidemia. She reports moderate control with Trelegy, DuoNeb BID and flutter valve. In November patient reported bronchiectasis symptoms treated with Z-Gato and prednisone with resolution of symptoms. Today she presents for an acute visit. Unfortunately over the last few weeks patient has reported increased chest congestion with difficulty expectorating, dyspnea and wheezing. She denies fever chills. Patient also under significant stress as daughter recently . [facility] Medical History (Updated 10/20/24 @ 10:02 by Nohelia Colvin PA-C) Nicotine dependence, cigarettes, uncomplicated Heart murmur Vitamin D deficiency Macular degeneration COPD (chronic obstructive pulmonary disease) HLD (hyperlipidemia) HTN (hypertension) Surgical History (Updated 10/30/22 @ 13:37 by Nohelia Colvin PA-C) History of endoscopy Family History (Updated 11/02/22 @ 13:33 by Nohelia Colvin PA-C) Father Lung cancer Social History (Reviewed 02/17/25 @ 10:13 by Francesca Mcginnis [facility]) Patient Tobacco Use Status: Current everyday Tobacco user Tobacco use type: Cigarette Cigarettes Per Day: 5 Years Smoked: onset 17yo, 1/2ppd-1ppd x 51yrs, 30phy Review of Systems Const Denies chills, Denies excessive sweating, Denies fever(s) and Denies night sweats Eyes Denies dry eyes and Denies irritation ENT Reports Normal hearing present and Denies sore throat Card Denies chest pain, Denies chest pain at rest, Denies chest pain with activity, Denies claudication, Denies leg edema, Reports dyspnea on exertion, Denies orthopnea and Denies paroxysmal nocturnal dyspnea Resp Reports chest congestion, Reports cough, Denies excessive phlegm production, Denies pain on inspiration, Denies pain with cough, Reports dyspnea on exertion, Denies stridor and Reports wheezing Musc Denies myalgias Neuro Reports Normal hearing present Endo Denies excessive sweating Sid/Lymph Denies lymphadenopathy Aller/Immun Denies seasonal rhinorrhea and Reports wheezing Physical Exam Vital Signs: Last Vital Signs Pulse 74 02/17/25 10:07 BP 138/80 02/17/25 10:07 Pulse Ox 93 02/17/25 10:07 Oxygen Delivery Method Room Air 02/17/25 10:07 BMI result Body Mass Index 29.9 Const General: cooperative, no acute distress, well developed and alert Nutritional Appearance: obese Orientation/consciousness: patient oriented x3 Limitations: no limitations HEENT Head: Yes normal to inspection, Yes normocephalic and Yes atraumatic Ears: hearing grossly normal bilaterally and external ears normal Eyes General: appearance normal, both eyes and all related structures Sclerae: sclerae normal EOM: EOMs intact bilaterally Neck Neck: Yes normal visual inspection and Yes no lymphadenopathy Lymphatic: no lymphadenopathy noted Chest Chest palpation & inspection: normal inspection of the chest Resp Effort & Inspection: normal respiratory effort, able to speak in complete sentences, no audible wheezes, no stridor, not tachypneic, no tripod positioning and no use of accessory muscles Auscultation: rhonchi and diminished lung sounds Cardio Jugular venous distension: no JVD Rate: regular rate Rhythm: regular rhythm Skin Other: warm, dry General skin exam: no rashes or lesions noted Neuro General: patient oriented x3 Cranial nerves: Yes Normal hearing present Cognition (Neuro): normal cognition Gait exam (Neuro): Normal gait present Extrem General: Yes normal to inspection, Yes capillary refill normal, Yes no clubbing, cyanosis or edema and Yes no pedal edema Psych Appearance: grossly normal and well kempt Speech and movement: Normal speech and movement present and Clear speech present Affect: normal affect Attitude: cooperative Thought process: Normal thought process present Thought content: Normal thought content present Insight: Good insight present (Psych) Judgement: Good judgement present (Psych) Office Procedures Nebulizer Treatment Nebulizer Treatment 92534-Ucrjckwca/MDI RX initial, or Nebulizer Subsequent Treatment Office Meds ipratropium 0.5 mg-albuterol 3 mg (2.5 mg base)/3 mL nebulization soln Performing Provider: Serene Rose NP Performing Location: [facility] Administered by: Denise Tirado LPN on 02/17/25 10:40 Dose Route Admin Location Dispensed Lot Number Expiration Date NDC Multi Purpose Machine Operator 3 mL inhalation 3 mL [id number] 05/30/26 70530-121-96 [employer] Assessment & Plan Assessment & Plan (1) COPD (chronic obstructive pulmonary disease): Code(s): J44.9 - Chronic obstructive pulmonary disease, unspecified Category: Medical (2) Environmental allergies: Code(s): Z91.09 - Other allergy status, other than to drugs and biological substances Category: Medical (3) Nicotine dependence, cigarettes, uncomplicated: Comment: (current smoker - onset 17yo, 1/2ppd-1ppd x 51yrs, 30phy, +fam hx lung ca) Code(s): F17.210 - Nicotine dependence, cigarettes, uncomplicated Category: Medical (4) Multiple pulmonary nodules: Code(s): R91.8 - Other nonspecific abnormal finding of lung field Category: Medical Plan Will treat bronchitic symptoms with Augmentin and prednisone. Minimal improvement with nebulized therapy in office. She is aware to call if symptoms do not improve and will send for chest x-ray or seek emergent care if symptoms worsen. Advised to continue Trelegy and DuoNeb. Smoking cessation reviewed, patient working towards quitting. All questions were answered and patient is in agreement of plan. Will follow up at regularly scheduled appointment next month or sooner if needed. Orders: Orders AMB Nebulizer Treatment Today J44.9 - Chronic obstructive pulmonary disease, unspecified, Z91.09 - Other allergy status, other than to drugs and biological substances Medications: New amoxicillin-pot clavulanate 875-125 mg 1 tab PO Q12H 20 tabs 0RF prednisone see taper instructions; 40 mg Daily x3 days, 30 mg daily x3 days, 20 mg daily x3 days, 10 mg daily x3 days 10 mg PO DIRECTED 30 tabs 0RF Refilled ipratropium-albuterol 0.5 mg-3 mg(2.5 mg base)/3 mL 3 mL inhalation BID PRN 180 mL 6RF wheezing J44.9 - Chronic obstructive pulmonary disease, unspecified albuterol sulfate 90 mcg/actuation (Ventolin HFA) 2 inhalations inhalation Q4- 6H PRN 1 ea 3RF shortness of breath or wheezing Coding Level of Care Code Est Pt Level 4 (04173) Diagnoses COPD (chronic obstructive pulmonary disease) J44.9 Environmental allergies Z91.09 Nicotine dependence, cigarettes, uncomplicated F17.210 Multiple pulmonary nodules R91.8 CPT Codes Nebulizer Treatment - Nebulizer Treatment, initial or subsequent: 10716- Nebulizer/MDI RX initial, or Nebulizer Subsequent Treatment ([id number])
--- OUTSIDE RECORDS SUMMARY | 2025-02-17 11:33 | XMS_ITS | Encounter Summary ---
Author Organization [employer] Address [address] [facility] 7t [place] [address] Care Team Providers Care Nutrition Aide Name Role Phone Melisa Watkins MD Primary Care Provider [phone] Encounter Details Date Type Department Care Team ([facility] st Contact Info) Description 04/01/2024 Orders Only [facility] MEDICINE [address] [place], [place] [phone] Melisa Watkins MD [address] [place], [place] [phone] Screening for cervical cancer (Primary Dx) Social [...] cervix documented in this encounter Care Teams Nutrition Aide Relationship Specialty Start Date End Date Melisa Watkins MD [address] [place] [phone] PCP - General Family Medicine 11/07/20 documented as of this encounter
--- OUTSIDE RECORDS SUMMARY | 2025-02-17 11:33 | XMS_ITS | Encounter Summary ---
Author Organization [employer] Address [address] [facility] 7t [place] [address] Care Team Providers Care Salesperson Men'S Hats Name Role Phone Melisa Watkins MD Primary Care Provider [phone] Encounter Details Date Type Department Care Team (Late st Contact Info) Description 12/12/2022 Orders Only [facility] CHC MED & PEDS [address] [place] [address] Maria Del Rosario Solo LPN Social History [...] on filedocumented in this encounter Care Teams Salesperson Men'S Hats Relationship Specialty Start Date End Date Melisa Watkins MD [address] [place] [address] PCP - General Family Medicine 11/07/20 documented as of this encounter
--- OUTSIDE RECORDS SUMMARY | 2025-02-17 11:33 | XMS_ITS | Encounter Summary ---
Author Organization [employer] Address [address] [facility] 7t [place] [address] Care Team Providers Care Jute Bag Clipper Name Role Phone Melisa Watkins MD Primary Care Provider [phone] Encounter Details Date Type Department Care Team (Late st Contact Info) Description 01/17/2023 Orders Only [facility] CHC MED & PEDS [address] [place] [address] Maria Del Rosario Solo LPN Social History [...] EDT Narrative 01/18/2023 9:47 AM EDT ? [facility] ? [address] ?[place] [address] ? Mammography Report ? Signed ? Patient: Cordelia,Elena E ?MR#: [id number] ?? [id number] ? : 1955 ?Acct:[id number] ? Age/Sex: 67 / F ?ADM Date: 01/17/23 ? Loc: HO.MAMMO ? Attending Dr: Melisa Watkins MD ? Ordering Physician: Melisa Watkins ?Results: 1Negative ? Date of Service: 01/17/23 ?Follow Up: 1 Year From Orig ?? inal Mammogram ? Procedure(s): MM tomosynthesis screening BI ?? Accession Number(s): [id number] ? cc: Melisa Watkins ? EXAMINATION: ?? [...] signed by Russ Tanner MD in OV> ?01/18/23 0944 ? DD/ 0811 ? TD/TT: ? Social Service Manager: SK ? Procedure Note [place], Image - 03/28/2023 [facility] [address] [place], [place] [address] Mammography Report Signed Patient: Elena Storey EMR#: [id number] : 8Acct:[id number] Age/Sex: 67 / FADM Date: 01/17/23 Loc: HO.MAMMO Attending Dr: Melisa Watkins MD Ordering Physician: Red Watkinsults: 1Negative Date of Service: 01/17/23Follow Up: 1 Year From Orig inal Mammogram Procedure(s): MM tomosynthesis screening BI Accession Number(s): [id number] cc: Melisa Watkins EXAMINATION: MM SCREENING DIGITAL [...] MD in OV> 01/18/2344 DD/ 0811 TD/TT: Social Service Manager: VASQUEZ [facility] External Provider IMG BI PROCEDURES Edited Result - Final documented in this encounter Visit Diagnoses Not on filedocumented in this encounter Care Teams Jute Bag Clipper Relationship Specialty Start Date End Date Melisa Watkins MD [address] [place] [phone] PCP - General Family Medicine 11/07/20 documented as of this encounter
--- OUTSIDE RECORDS SUMMARY | 2025-02-17 11:33 | XMS_ITS | Encounter Summary ---
Author Organization [employer] Address [address] [facility] 7t [place] [address] Care Team Providers Care Sales Associate Name Role Phone Melisa Watkins MD Primary Care Provider [phone] Encounter Details Date Type Department Care Team (Late st Contact Info) Description 12/28/2022 Orders Only [facility] MEDICINE [address] [place] [address] Melisa Watkins MD [address] [place] [address] Social History Tobacco Use Types Packs/Day Years [...] on filedocumented in this encounter Care Teams Sales Associate Relationship Specialty Start Date End Date Melisa Watkins MD [address] [place], [place] [phone] PCP - General Family Medicine 11/07/20 documented as of this encounter
--- OUTSIDE RECORDS SUMMARY | 2025-02-17 11:33 | XMS_ITS | Encounter Summary ---
Author Organization [employer] Address [address] [facility] 7t [place] [address] Care Team Providers Care Workforce Planning Analyst Name Role Phone Melisa Watkisn MD Primary Care Provider [phone] Encounter Details Date Type Department Care Team (Late st Contact Info) Description 09/26/2022 Orders Only [facility] MED & PEDS [address] [place] [address] Maria Del Rosario Solo LPN Social History [...] on filedocumented in this encounter Care Teams Workforce Planning Analyst Relationship Specialty Start Date End Date Melisa Watkins MD [address] [place] [id number] PCP - General Family Medicine 11/07/20 documented as of this encounter
--- OUTSIDE RECORDS SUMMARY | 2025-02-17 11:33 | XMS_ITS | Encounter Summary ---
Author Organization [employer] Address [address] [facility] 7t [place] [address] Care Team Providers Care Leadership Program Internship Name Role Phone Melisa Watkins MD Primary Care Provider [phone] Encounter Details Date Type Department Care Team ([facility] st Contact Info) Description 03/01/2023 Orders Only [facility] MEDICINE [address] [place] [phone] Melisa Watkins MD [address] [place] [address] [phone] Chronic obstructive pulmonary disease, unspecified COPD type [...] Primary documented in this encounter Care Teams Leadership Program Internship Relationship Specialty Start Date End Date Melisa Watkins MD [address] [place] [address] [phone] PCP - General Family Medicine 11/07/20 documented as of this encounter
--- OUTSIDE RECORDS SUMMARY | 2025-02-17 11:33 | XMS_ITS | Encounter Summary ---
Author Organization [employer] Address [address] [facility] 7t [place] [address] Care Team Providers Care Pipe Line Walker Name Role Phone Melisa Watkins MD Primary Care Provider [phone] Reason for Visit * Reason Comments Med Refill Encounter Details Date Type Department Care Team ([facility] Contact Info) Description 05/20/2024 Refill [facility] MEDICINE [address] [place], [place] [phone] Melisa Watkins MD [address] [place], [place] [phone] Social History Tobacco Use Types Packs/Day Years [...] on filedocumented in this encounter Care Teams Pipe Line Walker Relationship Specialty Start Date End Date Melisa Watkins MD [address] [place] [address] PCP - General Family Medicine 11/07/20 documented as of this encounter
--- OUTSIDE RECORDS SUMMARY | 2025-02-17 11:33 | XMS_ITS | Encounter Summary ---
Author Organization [employer] Address [address] [facility] 7t [place] [address] Care Team Providers Care Rn Enterostomal Name Role Phone Melisa Watkins MD Primary Care Provider [phone] Reason for Visit * Reason Comments Med Refill Encounter Details Date Type Department Care Team ([facility] st Contact Info) Description 06/04/2023 Refill [facility] [address] [place], [place] [phone] Pj Gibson MD [address] [place], [place] [phone] Social History Tobacco Use Types Packs/Day Years [...] on filedocumented in this encounter Care Teams Rn Enterostomal Relationship Specialty Start Date End Date Melisa Watkins MD [address] [place] [address] [phone] PCP - General Family Medicine 11/07/20 documented as of this encounter
--- OUTSIDE RECORDS SUMMARY | 2025-02-17 11:34 | XMS_ITS | Data Portability ---
Author Organization [place] - [facility], [facility] Address [address] [place] [phone] Care Team Providers Care Studio Associate Name Role Phone JENNIFER SALDAÑA Referring Provider [phone] JENNIFER SALDAÑA Primary Care Provider [phone] Assessment Encounter Date Assessment Date Assessment LastModified [...] Details Recorded Time Otalgia of left ear 8283362804 Active 2023 ARMANI PATE MD [address] [place] [address], [phone], [facility] - [facility] 4 14:48:26 Chronic rhinitis 53490759 Active 2023 ARMANI PATE MD [address] [place] [address], [phone], [facility] - [facility] 4 14:48:31 Abnormal auditory perception 47226482 Active 2023 ARMANI PATE MD [address] [place] [address], [phone], [facility] - [facility] 4 14:48:44 Sensorineur al hearing loss of bilateral ears 767248572 Active 2023 BONNIE ELLIOTT [place], CCC-A [address] [place],[address], [place], [phone], [place] - [facility] 4 15:25:11 Nasal obstruction 785676128 Active 2023 IVETH MCWILLIAMS MD [address] [facility] [place],[address], [place], [address], [place] - [facility] 4 11:50:55 Incompetenc e of nasal valve 054503039 Active 2023 IVETH MCWILLIAMS MD [address] [facility] [place],[address], [facility], [address], [place] - [facility] 4 11:51:01 Stenosis of nasal valve 4585741779997 4106 Active 2023 IVETH MCWILLIAMS MD [address] [facility] [place],[address], [facility], [address], [place] - [facility] 4 11:52:18 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 Procedures Surgical History Date Name Laterality Status Provider Name and Address Organization Details Recorded Time Nasal Endoscopy completed IVETH MCWILLIAMS MD [address] [facility],[place] [address], [place], [phone], [facility] - [facility] 07/28/2024 11:37:39 Comp Audio with Tymps - 71478 & 17145 completed BONNIE ELLIOTT [place], JAY-A [address] [facility] [place] [address], [place], [address], [facility] - [facility] 06/26/2024 15:25:00 Imaging Results Imaging Date Name Status LastModified by [facility] Details LastModified Time 06/29/2024 audiogram completed BAR[facility] Information no t available 06/29/2024 14:48:43 Procedure Notes None recorded. Medical Equipment None Reported. Allergies Allergen ID Allergen Name Allergen Category Reaction Reaction Severity Criticality Documentation Date Start Date Code Code System Note Provider Name and Address Organization Details Recorded Time 641937 Substance with sulfonami de structure and antibacte rial mechanism of action (substanc e) medicatio n Not available Not available Not available 06/26/2024 12212 8003 SNOMED Radha rios [place] - [facility] 4 14:30:21 Medications Name Sig Start Date [...] bromide 21 mcg (0.03 %) nasal spray [place] 2 sprays twice a day by intranasa [...] Details Last Updated DateTime 06/26/2024 164.47 cm 70101.74 g Radha Shepherd No se [facility] 06/26/2024 14:34:56 Date Recorded Body height Body weight Provider Name and Address Organization Details Last Updated DateTime 07/28/2024 164.47 cm 08208.74 g Radha Shepherd No [facility] 07/28/2024 08:28:02 Social History Question Answer Notes LastModified by Organizat ion Details LastModified Time Tobacco Smoking Status Current Every Day Smoker LONNIE Herman [facility] 06/26/2024 14:32:27 What Is Your Current Pack [...] SNOMED-CT Code Diagnosis ICD10 Code Diagnosis Note [id number] ARMANI ACUNA MD [facility] [address] [address] 06/26/2024 14:17:11 06/29/2024 07:54:19 Otalgia of left ear 8315087227 H92.02 no evidence no evidence of middle ear fluid. Left TMJ is tender. . If she has persistent symptoms consider fiberoptic laryngosco py. In the meantime suggest warm compresses , soft diet, massage and ibuprofen. She will follow-up in 6 weeks Chronic rhinitis 2282712 6 J31.0 Abnormal a uditory perception 54336142 H93.292 [id number] BONNIE ELLIOTT MA, CCC-A [facility] [address] [address] 06/26/2024 15:24:19 06/29/2024 07:55:13 Sensorineural hearing loss of bilateral ears 518541748 H90.3 Audiologic al evaluation results: Right ear: [...] Cou ld not maintain a hermetic seal}} [id number] IVETH MCWILLIAMS MD [facility] [address] [address] 07/28/2024 08:23:08 07/28/2024 08:58:40 Nasal obstruction 376660819 J34.89 Bilateral dermatochalasis of upper eyelids 9135813221 8885294 H02.831 H02.834 Stenosis o f nasal valve 1205283231 0271599 J34.8202 Health Concerns Section Related Observation LastModified by Organization Detai ls LastModified Time None Recorded Concern Status LastModified by Organization Details LastModified Time None Recorded Advance Directives Directive None Recorded Payers Insurance Date Sequence Insurance Name Policy Number Policy [place] Covered Member ID [place] Member ID Guarantor Name 12/15/2024 1 [place]ICARE B-[place]: [employer] Elena Storey [id number] Elena Storey 12/15/2024 2 [place] [facility] Elena Storey [id number] Elena Storey Notes Date Note Type Note [...] SNOT= 15Nose= 40 ARMANI MACDONALD MD [address] [facility],[address], [address], [facility] - [facility] 06/26/2024 16:34:45 07/28/2024 text/html This is a 68-year-old woman who presents today for evaluation of nasal obstruction. She is here as a referral from Dr. Gary Mattson. She has had difficulty breathing through her mouth and nose for a long time. She feels like the obstruction is on both sides, but this also changes from [id number]. On a scale of 1 to 10, [...] ? ? ? IVETH MCWILLIAMS MD [address] [facility],[place] [address], [place], [address], [facility] 07/28/2024 11:54:46 OBGyn Episode No OBEpisode recorded.
--- OUTSIDE RECORDS SUMMARY | 2025-02-17 11:34 | XMS_ITS | Clinical Summary ---
Author Organization [employer] Address [address] [place] [address] 7t [place] [address] Care Team Providers Care Cook Helper Fruit Name Role Phone Melisa Watkins MD Primary Care Provider [phone] Allergies Active Allergy Reactions Criticality Noted Date [...] ER Medications (abx, steroid, Mucinex) sent to [facility] due to weekend Assessment & Plan (01/21/2023 [...] Type Department Care Team Description 01/17/2025 Refill [facility] [address] [place] [address] Melisa Watkins MD 12/17/2024 Refill [facility] [address] [place] [address] Name, MD Noe Gastroesophageal reflux disease without esophagitis 12/16/2024 Telephone [facility] [place] [address] Melisa Watkins MD 12/11/2024 Population Health Risk Score [facility] () Department [address] [place] [phone] Provider, Population Health Generic 12/08/2024 11:30 AM EDT Office Visit [facility] [place] [address] Melisa Watkins MD COPD exacerbation (CMS/HCC) (Primary Dx); Encounter for immunization; Chronic obstructive pulmonary disease, unspecified COPD type (CMS/HCC); Dietary counseling; Exercise counseling; Overweight; Essential hypertension; Screening for lung cancer 12/08/2024 Orders Only [facility] External Provider, [facility] 12/08/2024 Travel 12/08/2024 Refill [facility] [place] [address] Melisa Watkins MD Other hyperlipidemia 12/01/2024 Travel 12/01/2024 Patient Outreach [facility] [place] [address] Melisa Watkins MD Pre-visit Planning (SDOH screening [...] EDT Narrative 12/08/2024 11:42 AM EDT ? [facility] ?[address] ?[place] [address] ? CT Scan Report ? Signed ? Patient: Cordelia,Elena E ?MR#: [id number] ?? [id number] ? : 1955 ?Acct:[id number] ? Age/Sex: 68 / F ?ADM Date: 03/11/25 ? Loc: HO.CT ? Attending Dr: Nohelia Colvin PA-C ? Ordering Physician: Nohelia Colvin PA-C ?? Date of Service: 12/08/24 ?? Procedure(s): CT lung screening ?? Accession Number(s): [id number] ? cc: Melisa Watkins; Nohelia Colvin PA-C ? Report Number: ?? [id number]: Total DLP = ?? 48.00 mGy-cm ?? [...] DD/ 0821 ? TD/TT: 12/08/24 0847 ? Home Theater Expert: ? Procedure Note Donotbryceinterpreter, Image - 12/08/[address] [address] [address] Scan Report Signed Patient: Elena Storey EMR#: [id number] : 8Acct:[id number] Age/Sex: 68 / FADM Date: 12/08/24 Loc: HO.CT Attending Dr: Nohelia Colvin PA-C Ordering Physician: Nohelia Colvin PA-C Date of Service: 12/08/24 Procedure(s): CT lung screening Accession Number(s): [id number] cc: Melisa Watkins; Nohelia Colvin PA-C Report Number: [id number]: Total DLP = 48.00 mGy-cm EXAMINATION: CT [...] 12/08/24 1139 DD/ 0821 TD/TT: 12/08/24 0847 Home Theater Expert: [facility] External Provider IMG CT PROCEDURES Final Result * ThinPrep?? Imaging Pap Refl HPV mRNA(if ASCUS,ASC-H,LSIL,HSIL,EVIE)Refl Genotype (03/31/2024 9:22 AM EDT) HPV nRNA E6/E7 [facility] HPV 16,18/45 [facility] SOURCE: SEE NOTE [facility] Comment:None given Report Status: [facility] Clinical Information: SEE NOTE [facility] Comment:None given LMP: SEE NOTE [facility] Comment:NONE GIVEN Prev. PAP: SEE NOTE [facility] Comment:NONE GIVEN Prev. BX: SEE NOTE [facility] Comment:NONE GIVEN Statement Of Adequacy: SEE NOTE [facility] Comment:Satisfactory for karen luation.Endocervical/transformation zone componentpresent. General Categorization: [facility] Interpretation/Result: SEE NOTE [facility] Comment:Cytology Results: Ne gative for intraepitheliallesion or malignancy. Cytology Comment SEE NOTE [facility] Comment:This Pap test has be en evaluated with computerassisted technology. Grade School Teacher: SEE NOTE [facility] Comment:WAC, CT(ASCP)CT scre ening location: [address] [address] Review Grade School Teacher: NMP [facility] Pathologist [facility] PAP Infection [facility] See Note SEE NOTE [facility] Comment:EXPLANATORY NOTE:The Pap is a screening test for cervical cancer. It isnot a diagnostic test and is subject to false negativeand false positive results. It is most reliable when asatisfactory sample, regularly obtained, is submittedwith relevant clinical findings and history, and whenthe Pap result is evaluated along with historic andcurrent clinical information.THIS TEST WAS PERFORMED AT:[facility] [address] [id number] NAPOLES MD 03/31/2024 9:22 AM EDT 03/31/2024 1:00 PM EDT Narrative [facility] - 04/07/2024 2:32 PM EDT SEE SCANNED RESULTS IN EMR Melisa Watkins MD LAB CYTOLOGY ORDERABLES Final Result [facility] [address] [place] [address] [phone] * BI Mammogram Screening Tomosynthesis Bilateral (01/21/2024 9:58 AM EDT) Anatomical Region Laterality Modality Breast Bilateral Mammography 01/21/2024 9:58 AM EDT Narrative 02/03/2024 12:27 PM EDT ? [facility] ? [address] ?[place] [address] ? Mammography Report ? Signed ? Patient: Cordelia,Elena E ?MR#: [id number] ?? [id number] ? : 1955 ?Acct:[id number] ? Age/Sex: 68 / F ?ADM Date: 04/23/24 ? Loc: HO.MAMMO ? Attending Dr: Melisa Watkins MD ? Ordering Physician: Melisa Watkins ?Results: 2Benign F ?? indings ? Date of Service: 01/21/24 ?Follow Up: 1 Year From Orig ?? inal Mammogram ? Procedure(s): MM tomosynthesis screening BI ?? Accession Number(s): [id number] ? cc: Melisa Watkins ? EXAMINATION: ?? [...] 1224 ? DD/ 0958 ? TD/TT: ? Home Theater Expert: ? Procedure Note Doncherelle, Image - 02/03/2024 [facility] [address] [place] [address] Mammography Report Signed Patient: Elena Storey EMR#: [id number] : 8Acct:[id number] Age/Sex: 68 / FADM Date: 01/21/24 Loc: HO.MAMMO Attending Dr: Melisa Watkins MD Ordering Physician: Red Watkinsults: 2Benign F indings Date of Service: 01/21/24Follow Up: 1 Year From Orig inal Mammogram Procedure(s): MM tomosynthesis screening BI Accession Number(s): [id number] cc: Melisa Watkins EXAMINATION: MM SCREENING DIGITAL [...] in OV> 02/03/24 1224 DD/ 0958 TD/TT: Home Theater Expert: us Melisa Watkins MD IMG BI PROCEDURES Final Result * (ABNORMAL) Lipid Panel, Standard (01/20/2024 9:03 AM EDT) Triglycerides 137 <150 mg/dL [facility] Comment:Desirable Triglyceri de: less than 150 mg/dLBorderline High Triglyceride 150-199 mg/dLHigh Triglyceride: 200-499 mg/dLVery High Triglyceride: greater than or equal to 5OO mg/dL Cholesterol 202(H) <200 mg/dL [facility] Comment:Desirable Cholestero l: less than 200 mg/dLBorderline High Cholesterol: 200-239 mg/dLHigh Cholesterol: greater than 239 mg/dL LDL Cholesterol Calculated 123(H) <100 mg/dL [facility] Comment:Desirable LDL: less than 100 mg/dLNear Optimal/Above Optimal LDL: 110- 129 mg/dLBorderline High LDL: 130-159 mg/dLHigh LDL: 160-189 mg/dLVery High LDL: greater than or equal to 190 mg/dL HDL Cholesterol 52 >40 mg/dL [facility] Comment:Desirable HDL: great er than 40 mg/dL Note: This HDL assay may give artificially low results in patients with liver disease. Blood Venous blood specimen / Unknown 01/20/2024 9:03 AM EDT 01/20/2024 11:31 AM EDT us Melisa Watkins MD LAB BLOOD ORDERABLES Final Res ult Performing Organization Address City/[facility]/ZIP Co de Phone Number [facility] [address] [place] [address] [phone] * HPV mRNA E6/E7 (04/23/2017 10:30 AM EDT) HPV mRNA E6/E7 Not Detected NOT DETECTED [facility] Comment: This test was performed using the APTIMA(R) HPV Assay ([employer] This assay detects E6/E7 viral messenger RNA (mRNA) from 14 high-risk HPV types (16,18,31,33,35,39,45,51, 52,56,58,59,66,68). For additional information please refer to: http://education.[employer]/faq/MCP160k5 (This link is being provided for informational/ educational purposes only.) Test Performed by [employer], [employer] [facility], [address] [place] [address] Shmuel Fuentes M.D., Ph.D., Director of Laboratories , [facility] [id number] Please note: ??Effective 06/11/2016, HPV testing will be performed using [employer]'s APTIMA test which targets mRNA. Detecting mRNA instead of DNA, as in older methods, offers significant improvements in specificity. 04/23/2017 10:3 0 AM EDT us Desiree Baltazar NP HISTORICAL/NON ORDERABLE LABS Fi nal Result [facility] [address] from Last 3 Months or Most Recently Relevant to Health Maintenance Insurance [facility] STANDARD MEDICARE Care Teams Cook Helper Fruit Relationship Specialty Start Date End Date Melisa Watkins MD [address] [place] [address] PCP - General Family Medicine 11/07/20
--- OUTSIDE RECORDS SUMMARY | 2025-02-17 11:34 | XMS_ITS | Encounter Summary ---
Author Organization [employer] Address [address] [place] [address] Care Team Providers Care Plastic Surgery Manager Name Role Phone Melisa Watkins MD Primary Care Provider [phone] Encounter Details Date Type Department Care Team ([facility] st Contact Info) Description 11/26/[address] [facility] [address] [place] [address] Melisa Watkins MD [address] [place], [place] [phone] Social History Tobacco Use Types Packs/Day Years [...] the past 12 months, has t he [employer], [employer], oil or water [employer] threatened to shut off services in your [...] EST Narrative 11/28/2023 3:57 PM EST ? [facility] ?[address] ?[place] [address] ? CT Scan Report ? Signed ? Patient: Elena Storey ?MR#: [id number] ?? [id number] ? : 1955 ?Acct:[id number] ? Age/Sex: 67 / F ?ADM Date: 11/27/23 ? Loc: HO.CT ? Attending Dr: Nohelia Colvin PA-C ? Ordering Physician: Serene Rose NP ?? Date of Service: 11/27/23 ?? Procedure(s): CT lung screening ?? Accession Number(s): [id number] ? cc: Melisa Watkins; Serene Rose NP [...] for ?? accurate assessment. ? Dictated By: ?Erick,Allan ? Signed By: ?<Electronically signed by Allan ??Erick in OV> ?11/28/23 1554 ? DD/ 1134 ? TD/TT: ? Coal Sample Tester: ? Procedure Note Doncherelle, Image - 11/28/[address] [address] [place] Scan Report Signed Patient: Elena Storey EMR#: [id number] : 8Acct:[id number] Age/Sex: 67 / FADM Date: 11/27/23 Loc: .CT Attending Dr: Nohelia Colvin PA-C Ordering Physician: Serene Rose NP Date of Service: 11/27/23 Procedure(s): CT lung screening Accession Number(s): [id number] cc: Melisa Watkins; Serene Rose NP EXAMINATION: [...] score for accurate assessment. Dictated By: Allan Suarze Signed By: <Electronically signed by Allan Suarez in OV> 11/28/23 1554 DD/ 1134 TD/TT: Coal Sample Tester: [facility] External Provider IMG CT PROCEDURES Final Result documented in this encounter Visit Diagnoses Not on filedocumented in this encounter Care Teams Plastic Surgery Manager Relationship Specialty Start Date End Date Melisa Watkins MD [address] [place] [phone] PCP - General Family Medicine 11/07/20 documented as of this encounter
== END 2025-02-17 11:38 | disposition home or self-care (01) ==
LOC: HO.HPSW 10:05
PROVIDERS: PCP General Practice; Visit Provider Nurse Practitioner Family
DX: J44.9 Chronic obstructive pulmonary disease, unspecified (principal); Z91.09 Other allergy status, other than to drugs and biological substances; F17.210 Nicotine dependence, cigarettes, uncomplicated; R91.8 Other nonspecific abnormal finding of lung field
CPT/HCPCS: 99214

== ENCOUNTER → 2025-02-17 10:04 | Outpatient (BNVA) | payer MEDICARE, MEDICAID, SELFPAY | PROVIDERS: PCP General Practice; Visit Provider Nurse Practitioner Family | DX: J44.9 Chronic obstructive pulmonary disease, unspecified (principal); R91.8 Other nonspecific abnormal finding of lung field; F17.210 Nicotine dependence, cigarettes, uncomplicated; Z91.09 Other allergy status, other than to drugs and biological substances | CPT/HCPCS: 94640; 99212 ==

== ENCOUNTER 2025-03-15 09:06 | Outpatient (REF) | payer MEDICARE, MEDICAID, SELFPAY ==
--- NOTE | ~2025-03-15 | XR_ITS ---
EXAMINATION: XR CHEST CLINICAL INFORMATION: R05.9 - Cough, unspecified COMPARISON: 11/11/2023. Low-dose screening CT chest 12/08/2024. TECHNIQUE: 2 views of the chest were obtained. FINDINGS: The cardiac, hilar, and mediastinal contours are normal. Aortic mural calcification. Lungs are diffusely hyperaerated, with flattened hemidiaphragms, suggesting COPD. Lungs otherwise clear. There is no pneumothorax or pleural effusion. There is no focal osseous or soft tissue abnormality. XR/XR chest 2V IMPRESSION: COPD. No active superimposed disease. Electronically signed by: Oumar Mohr MD 03/15/2025 10:45 AM EDT
== END 2025-03-15 09:07 | disposition home or self-care (01) ==
LOC: HO.XRAY 09:06
PROVIDERS: PCP General Practice; Visit Provider Nurse Practitioner Family
DX: R91.8 Other nonspecific abnormal finding of lung field (principal); J44.9 Chronic obstructive pulmonary disease, unspecified; F17.210 Nicotine dependence, cigarettes, uncomplicated; Z91.09 Other allergy status, other than to drugs and biological substances; R05.9 Cough, unspecified
CPT/HCPCS: 71046; 99212

== ENCOUNTER 2025-03-15 09:06 | Outpatient (AMB) | payer MEDICARE, MEDICAID, SELFPAY ==
[2025-03-15 09:08] VITALS: BP 138/84; PULSE 78; O2SAT 93; BMI 29.7
--- NOTE | 2025-03-15 09:08 | MHC.OFFVIS ---
Vital Signs 03/15/25 09:08 Height 5 ft 4 in Weight 173 lb 1.006 oz BMI 29.7 BP 138/84 Blood Pressure Location Lt brachial Position Sitting Pulse 78 Pulse Source Pulse Oximeter Pulse Oximetry (%) 93 Oxygen Delivery Method Room Air Intake Visit Reasons: COPD Allergies sulfamethoxazole [From BACTRIM DS] Allergy (Unknown, Unverified 03/15/25 09:15) UNKNOWN trimethoprim [From BACTRIM DS] Allergy (Unknown, Unverified 03/15/25 09:15) UNKNOWN HPI HPI COPD: Details: Elena is a pleasant 69 year old female, current smoker with 30 pack year history with underlying severe COPD, HTN and hyperlipidemia. She reports moderate control with Trelegy, DuoNeb BID and flutter valve. At the last visit, patient was treated for bronchitic symptoms with Augmentin and prednisone, reported moderate improvement of symptoms. She continues to report sinus congestion using sinus rinses and productive cough, wheezing and chest congestion. She denies any fevers or chills. She does note that symptoms worsen depending on environment. She denies any visits to urgent care hospitalizations related to respiratory distress since last visit. lsd- no feeres no chills. int wheezing no wheezing apprecaited today continue with flutter valve, send abx if no will culture less than 1/2 currently working towards quitting. 4-6 weeks [facility] Medical History (Updated 03/15/25 @ 09:37 by Serene Rose NP) Nicotine dependence, cigarettes, uncomplicated Heart murmur Vitamin D deficiency Macular degeneration COPD (chronic obstructive pulmonary disease) HLD (hyperlipidemia) HTN (hypertension) Surgical History (Updated 10/30/22 @ 13:37 by Nohelia Colvin PA-C) History of endoscopy Family History (Updated 11/02/22 @ 13:33 by Nohelia Colvin PA-C) Father Lung cancer Social History (Updated 03/15/25 @ 09:14 by Francesca Mcginnis CMA) Patient Tobacco Use Status: Current everyday Tobacco user Tobacco use type: Cigarette Cigarettes Per Day: 8 Years Smoked: onset 17yo, 1/2ppd-1ppd x 51yrs, 30phy Review of Systems Const Denies chills, Denies excessive sweating, Denies fever(s) and Denies night sweats Eyes Denies dry eyes and Denies irritation ENT Reports Normal hearing present and Denies sore throat Card Denies chest pain, Denies chest pain at rest, Denies chest pain with activity, Denies claudication, Denies leg edema, Reports dyspnea on exertion, Denies orthopnea and Denies paroxysmal nocturnal dyspnea Resp Reports chest congestion, Reports cough, Denies excessive phlegm production, Denies pain on inspiration, Denies pain with cough, Reports dyspnea on exertion, Denies stridor and Reports wheezing Musc Denies myalgias Neuro Reports Normal hearing present Endo Denies excessive sweating Sid/Lymph Denies lymphadenopathy Aller/Immun Denies seasonal rhinorrhea and Reports wheezing Physical Exam Vital Signs: Last Vital Signs Pulse 78 03/15/25 09:08 BP 138/84 03/15/25 09:08 Pulse Ox 93 03/15/25 09:08 Oxygen Delivery Method Room Air 03/15/25 09:08 BMI result Body Mass Index 29.7 Const General: cooperative, no acute distress, well developed and alert Nutritional Appearance: obese Orientation/consciousness: patient oriented x3 Limitations: no limitations HEENT Head: Yes normal to inspection, Yes normocephalic and Yes atraumatic Ears: hearing grossly normal bilaterally and external ears normal Eyes General: appearance normal, both eyes and all related structures Sclerae: sclerae normal EOM: EOMs intact bilaterally Neck Neck: Yes normal visual inspection and Yes no lymphadenopathy Lymphatic: no lymphadenopathy noted Chest Chest palpation & inspection: normal inspection of the chest Resp Effort & Inspection: normal respiratory effort, able to speak in complete sentences, no audible wheezes, Actively coughing Quality: wet, no stridor, not tachypneic, no tripod positioning and no use of accessory muscles Auscultation: no crackles, no rhonchi, no wheezes and diminished lung sounds Cardio Jugular venous distension: no JVD Rate: regular rate Rhythm: regular rhythm Skin Other: warm, dry General skin exam: no rashes or lesions noted Neuro General: patient oriented x3 Cranial nerves: Yes Normal hearing present Cognition (Neuro): normal cognition Gait exam (Neuro): Normal gait present Extrem General: Yes normal to inspection, Yes capillary refill normal, Yes no clubbing, cyanosis or edema and Yes no pedal edema Psych Appearance: grossly normal and well kempt Speech and movement: Normal speech and movement present and Clear speech present Affect: normal affect Attitude: cooperative Thought process: Normal thought process present Thought content: Normal thought content present Insight: Good insight present (Psych) Judgement: Good judgement present (Psych) Results Reviewed Results Reviewed: [address] [address] [address] Scan Report Signed Patient: Elena Storey MR#: [id number] : 1955 Acct:[id number] Age/Sex: 68 / F ADM Date: 12/08/24 Loc: .CT Attending Dr: Nohelia Colvin PA-C Ordering Physician: Nohelia Colvin PA-C Date of Service: 12/08/24 Procedure(s): CT lung screening Accession Number(s): [id number] cc: Melisa Watkins; Nohelia Colvin PA-C~ Report Number: [id number]: Total DLP = 48.00 mGy-cm EXAMINATION: CT LUNG SCREENING HISTORY: Smoking history TECHNIQUE: Low dose axial images were obtained from the sternal notch to upper abdomen without IV contrast per standard departmental protocol. Sagittal and coronal reformatted images were also obtained and reviewed. One or more of the following techniques was used for dose reduction: Automated exposure control, adjustment of the mA and/or kV according to patient size, use of iterative reconstruction technique. DLP: 48 mGy-cm COMPARISON: Comparison is made with the prior examination dated 11/27/2023. FINDINGS: Lung nodules: Again seen is a 9 x 4 mm nodule in the right lower lobe (series 4, image 95). There is a 5 mm nodule in the left lower lobe (series 4, image 76) which is also stable. No new pulmonary nodules are identified. Emphysema: none Coronary Calcification: mild Aortic Arch Calcification: mild Potentially Significant Incidentals : none Additional Chest Findings: There is no pleural or pericardial effusion. No mediastinal or axillary lymphadenopathy is identified. Visualized upper abdomen: The visualized portions of the liver, spleen, and right adrenal gland have an unremarkable unenhanced appearance. Again seen is a 2.0 cm left adrenal adenoma. CT/CT lung screening IMPRESSION: No suspicious pulmonary nodules are identified. LUNG-RADS ASSESSMENT: Lung-RADS 2: Benign MANAGEMENT: Continue annual screening with LDCT in 12 months Category S: N/A Electronically signed by: Junior Wolf MD 12/08/2024 11:39 AM EDT RP Dictated By: Junior Wolf MD Signed By: <Electronically signed by Junior Wolf MD in OV> 12/08/24 1139 DD/ TD/TT: 12/08/24 0847 Delivery Rn: Assessment & Plan Assessment & Plan (1) COPD (chronic obstructive pulmonary disease): Code(s): J44.9 - Chronic obstructive pulmonary disease, unspecified Category: Medical (2) Environmental allergies: Code(s): Z91.09 - Other allergy status, other than to drugs and biological substances Category: Medical (3) Nicotine dependence, cigarettes, uncomplicated: Comment: (current smoker - onset 17yo, 1/2ppd-1ppd x 51yrs, 30phy, +fam hx lung ca) Code(s): F17.210 - Nicotine dependence, cigarettes, uncomplicated Category: Medical (4) Multiple pulmonary nodules: Code(s): R91.8 - Other nonspecific abnormal finding of lung field Category: Medical Plan Will treat bronchitic symptoms with Vantin and send for CXR. May need to consider sputum culture if no better. She is aware to call if symptoms do not improve or seek emergent care if symptoms worsen. Advised to continue Trelegy and DuoNeb. Smoking cessation reviewed, patient working towards quitting. All questions were answered and patient is in agreement of plan. Will follow up in 4-6 weeks or sooner if needed. Orders: Orders XR chest 2V Today R05.9 - Cough, unspecified Medications: New cefpodoxime must administer with a meal/food 200 mg PO BID 20 tabs 0RF Coding Level of Care Code Est Pt Level 4 (54870) Diagnoses COPD (chronic obstructive pulmonary disease) J44.9 Environmental allergies Z91.09 Nicotine dependence, cigarettes, uncomplicated F17.210 Multiple pulmonary nodules R91.8
--- OUTSIDE RECORDS SUMMARY | 2025-03-15 09:41 | XMS_ITS | Encounter Summary ---
Author Organization [employer] Address [address] [place] [address] 7[address] [place] [address] Care Team Providers Care Pharmaceutical Officer Name Role Phone Melisa Watkins MD Primary Care Provider [phone] Encounter Details Date Type Department Care Team ([facility] st Contact Info) Description 03/01/2023 Orders Only [facility]INE [address] [place] [address] [phone] Melisa Watkins MD [address] [place] [address] [phone] Chronic obstructive pulmonary disease, unspecified COPD type [...] Primary documented in this encounter Care Teams Pharmaceutical Officer Relationship Specialty Start Date End Date Melisa Watkins MD [address] [place] [address] [phone] PCP - General Family Medicine 11/07/20 documented as of this encounter
== END 2025-03-15 09:42 | disposition home or self-care (01) ==
LOC: HO.HPS 09:07
PROVIDERS: PCP General Practice; Visit Provider Nurse Practitioner Family
DX: J44.9 Chronic obstructive pulmonary disease, unspecified (principal); Z91.09 Other allergy status, other than to drugs and biological substances; F17.210 Nicotine dependence, cigarettes, uncomplicated; R91.8 Other nonspecific abnormal finding of lung field
CPT/HCPCS: 99214

== ENCOUNTER → 2025-03-15 09:48 | Outpatient (BNV) | payer MEDICARE, MEDICAID, SELFPAY | PROVIDERS: PCP General Practice; Visit Provider Radiology Diagnostic Radiology | DX: J44.9 Chronic obstructive pulmonary disease, unspecified (principal) | CPT/HCPCS: 71046 ==

== ENCOUNTER 2025-04-12 12:46 | Outpatient (AMB) | payer MEDICARE, MEDICAID, SELFPAY ==
[2025-04-12 12:51] VITALS: BP 130/60; PULSE 78; RESP 18; O2SAT 94; BMI 29.2
--- NOTE | 2025-04-12 12:51 | A.OFFVIS_ITS ---
Vital Signs 04/12/25 12:51 Height 5 ft 4 in Weight 170 lb 3.15 oz BMI 29.2 BP 130/60 Blood Pressure Location Lt brachial Position Sitting Respiration 18 Pulse 78 Pulse Source Pulse Oximeter Pulse Oximetry (%) 94 Oxygen Delivery Method Room Air Intake Visit Reasons: COPD Telegraphic Typewriter Operator Chief Required: No Allergies sulfamethoxazole (From BACTRIM DS) Allergy (Unknown, Verified 04/12/25 12:56) UNKNOWN trimethoprim (From BACTRIM DS) Allergy (Unknown, Verified 04/12/25 12:56) UNKNOWN HPI HPI COPD: Details: Elena is a pleasant 69 year old female, current 30 pack year smoker, with underlying severe COPD, HTN and hyperlipidemia. She reports moderate control with Trelegy, DuoNeb BID and flutter valve. At the last visit, patient was treated for bronchitic symptoms with Vantin, with resolution of symptoms. She has noted an increase in symptoms over the last few days due to heat and humidity but overall feels symptoms are well controlled, continues with dyspnea and productive cough with clear sputum. She denies any visits to urgent care hospitalizations related to respiratory distress since the last visit. [facility] Medical History (Updated 04/12/25 @ 13:16 by Serene Rose NP) Nicotine dependence, cigarettes, uncomplicated Heart murmur Vitamin D deficiency Macular degeneration COPD (chronic obstructive pulmonary disease) HLD (hyperlipidemia) HTN (hypertension) Surgical History (Updated 10/30/22 @ 13:37 by Nohelia Colvin PA-C) History of endoscopy Family History (Updated 11/02/22 @ 13:33 by Nohelia Colvin PA-C) Father Lung cancer Social History (Updated 03/15/25 @ 09:14 by Francesca Mcginnis CMA) Patient Tobacco Use Status: Current everyday Tobacco user Tobacco use type: Cigarette Cigarettes Per Day: 8 Years Smoked: onset 17yo, 1/2ppd-1ppd x 49yrs, 30phy Review of Systems Const Denies chills, Denies excessive sweating, Denies fever(s) and Denies night sweats Eyes Denies dry eyes and Denies irritation ENT Reports Normal hearing present and Denies sore throat Card Denies chest pain, Denies chest pain at rest, Denies chest pain with activity, Denies claudication, Denies leg edema, Reports dyspnea on exertion, Denies orthopnea and Denies paroxysmal nocturnal dyspnea Resp Denies change in phlegm color, Denies chest congestion, Reports cough, Denies hemoptysis, Denies excessive phlegm production, Denies pain on inspiration, Denies pain with cough, Reports dyspnea on exertion and Denies stridor Musc Denies myalgias Neuro Reports Normal hearing present Endo Denies excessive sweating Sid/Lymph Denies lymphadenopathy Aller/Immun Denies seasonal rhinorrhea Physical Exam Vital Signs: Last Vital Signs Pulse 78 04/12/25 12:51 Resp 18 04/12/25 12:51 BP 130/60 04/12/25 12:51 Pulse Ox 94 04/12/25 12:51 Oxygen Delivery Method Room Air 04/12/25 12:51 BMI result Body Mass Index 29.2 Const General: cooperative, healthy appearing, comfortable, no acute distress, well developed and alert Orientation/consciousness: patient oriented x3 Limitations: no limitations HEENT Head: Yes normal to inspection, Yes normocephalic and Yes atraumatic Ears: hearing grossly normal bilaterally and external ears normal Eyes General: appearance normal, both eyes and all related structures Eyelids: Yes eyelids normal Sclerae: sclerae normal EOM: EOMs intact bilaterally Neck Neck: Yes normal visual inspection and Yes no lymphadenopathy Lymphatic: no lymphadenopathy noted Chest Chest palpation & inspection: normal inspection of the chest Resp Effort & Inspection: normal respiratory effort, able to speak in complete sentences, no audible wheezes, no cough, no stridor, not tachypneic, no tripod positioning and no use of accessory muscles Auscultation: diminished lung sounds Cardio Jugular venous distension: no JVD Rate: regular rate Rhythm: regular rhythm Heart sounds: Murmur heart sound present Skin Other: warm, dry General skin exam: no rashes or lesions noted Neuro General: patient oriented x3 Cranial nerves: Yes Normal hearing present Cognition (Neuro): normal cognition Gait exam (Neuro): Normal gait present Extrem General: Yes normal to inspection, Yes capillary refill normal, Yes no clubbing, cyanosis or edema and Yes no pedal edema Psych Appearance: grossly normal and well kempt Speech and movement: Normal speech and movement present and Clear speech present Affect: normal affect Attitude: cooperative Thought process: Normal thought process present Thought content: Normal thought content present Insight: Good insight present (Psych) Judgement: Good judgement present (Psych) Assessment & Plan Assessment & Plan (1) COPD (chronic obstructive pulmonary disease): Code(s): J44.9 - Chronic obstructive pulmonary disease, unspecified Category: Medical (2) Environmental allergies: Code(s): Z91.09 - Other allergy status, other than to drugs and biological substances Category: Medical (3) Nicotine dependence, cigarettes, uncomplicated: Comment: (current smoker - onset 17yo, 1/2ppd-1ppd x 51yrs, 30phy, +fam hx lung ca) Code(s): F17.210 - Nicotine dependence, cigarettes, uncomplicated Category: Medical (4) Multiple pulmonary nodules: Code(s): R91.8 - Other nonspecific abnormal finding of lung field Category: Medical Plan Advised to continue Trelegy and DuoNeb as well as flutter valve. Patient with ongoing dyspnea, last echo 2020, will repeat to assess for underlying cardiac etiology. Smoking cessation reviewed, patient working towards quitting. All questions were answered and patient is in agreement of plan. Will follow up in 3 months or sooner if needed. Orders: Orders CA echo transthoracic complete Today R06.00 - Dyspnea, unspecified Coding Level of Care Code Est Pt Level 4 (43092) Diagnoses COPD (chronic obstructive pulmonary disease) J44.9 Environmental allergies Z91.09 Nicotine dependence, cigarettes, uncomplicated F17.210 Multiple pulmonary nodules R91.8
--- OUTSIDE RECORDS SUMMARY | 2025-04-12 13:42 | XMS_ITS | Encounter Summary ---
Author Organization [employer] Address [address] [place] [address] [address] [place] [address] Care Team Providers Care Hydro Generation Manager Name Role Phone Melisa Watkins MD Primary Care Provider [phone] Encounter Details Date Type Department Care Team ([facility] st Contact Info) Description 03/01/2023 Orders Only [facility] MEDICINE [address] [place] [address] [phone] Melisa Watkins MD [address] [place] [address] [phone] Chronic obstructive pulmonary disease, unspecified COPD type [...] Primary documented in this encounter Care Teams Hydro Generation Manager Relationship Specialty Start Date End Date Melisa Watkins MD [address] [place] [address] [phone] PCP - General Family Medicine 11/07/20 documented as of this encounter
--- OUTSIDE RECORDS SUMMARY | 2025-04-12 13:42 | XMS_ITS | Data Portability ---
Author Organization MD - [facility], Allergy Address [address] [address] Care Team Providers Care Clinic Nurse Name Role Phone JENNIFER SALDAÑA Referring Provider [phone] JENNIFER SALDAÑA Primary Care Provider [phone] Assessment Encounter Date Assessment Date Assessment LastModified [...] Details Recorded Time Otalgia of left ear 7513254322 Active 2023 ARMANI PATE MD [address] [place] [address], [phone], [facility] 4 14:48:26 Chronic rhinitis 06134564 Active 2023 ARMANI PATE MD [address] [place] [address], [phone], [facility] 4 14:48:31 Abnormal auditory perception 64545088 Active 2023 ARMANI PATE MD [address] [place] [address], [phone], [facility] 4 14:48:44 Sensorineur al hearing loss of bilateral ears 619957958 Active 2023 BONNIE ELLIOTT MA, CCC-A [address] [facility] [place], [place], [phone], [facility] - [facility] [place] 4 15:25:11 Nasal obstruction 963793564 Active 2023 IVETH MCWILLIAMS MD [address] [facility] [place], [place], [phone], [facility] - [facility] [place] 4 11:50:55 Incompetenc e of nasal valve 241666491 Active 2023 IVETH MCWILLIAMS MD [address] [facility] [place], [place], [address], [place] - [facility] [place] 4 11:51:01 Stenosis of nasal valve 9562714823461 4106 Active 2023 IVETH MCWILLIAMS MD [address] [facility], [place], [address], [facility] - [facility] [place] 4 11:52:18 Bilateral dermatochal asis of upper eyelids Active 2023 IVETH MCWILLIAMS MD [address] [facility], [place], [address], [facility] - [facility] [place] 4 11:52:24 Problem Notes None recorded. Procedures Surgical History Date Name Laterality Status Provider Name and Address Organization Details Recorded Time Nasal Endoscopy completed IVETH MCWILLIAMS MD [address] [facility],[address], [address], [facility] 07/28/2024 11:37:39 Comp Audio with Tymps - 95475 & 46184 completed BONNIE ELLIOTT MA, JAY-A [address] [facility],[address], [address], [facility] - [facility] 06/26/2024 15:25:00 Imaging Results None recorded. Procedure Notes None recorded. Medical Equipment None Reported. Allergies Allergen ID Allergen Name Allergen Category Reaction Reaction Severity Criticality Documentation Date Start Date Code Code System Note Provider Name and Address Organization Details Recorded Time [id number] Substance with sulfonami de structure and antibacte rial mechanism of action (substanc e) medicatio n Not available Not available Not available 06/26/2024 [id number] SNOMED Radha rios [place] - [facility] 4 14:30:21 Medications Name Sig Start [...] bromide 21 mcg (0.03 %) nasal spray [place] 2 sprays twice a day by intranasa [...] Details Last Updated DateTime 06/26/2024 164.47 cm 24872.74 g Radha Edmondson [facility] 06/26/2024 14:34:56 Date Recorded Body height Body weight Provider Name and Address Organization Details Last Updated DateTime 07/28/2024 164.47 cm 79695.74 g Radha Goetz [place] - [facility] 07/28/2024 08:28:02 Social History Question Answer Notes LastModified by Organizat ion Details LastModified Time Tobacco Smoking Status Current Every Day Smoker Radha rios [place] - [facility] 06/26/2024 14:32:27 What Is Your Current Pack Years? 20-29packyear s chreibstein Information not available 06/26/2024 How Many Years Have You Smoked Tobacco? 50 jschreibstein Information not available 06/26/2024 Sex: Unknown Functional Status Question Answer Note LastModified by Organizat ion Details LastModified Time What is your level of alcohol consumption? Occasional [facility] not available 06/26/2024 Mental Status None recorded. Family History Nothing Reported. Medical History Condition Response Hyperlipidemia Y Hypertension Y COPD Y Gynecological HistoryNo gynecological history recorded. Obstetrics History GPAL:G 0 P 0 0 0 0 Past Encounters Encounter ID Performer Location Encounter Start Date Encounter Closed Date Diagnosis/Indication Diagnosis SNOMED-CT Code Diagnosis ICD10 Code Diagnosis Note [id number] ARMANI ACUNA MD [facility] [address] [address] 06/26/2024 14:17:11 06/29/2024 07:54:19 Otalgia of left ear 8806590843 H92.02 no evidence no evidence of middle ear fluid. Left TMJ is tender. . If she has persistent symptoms consider fiberoptic laryngosco py. In the meantime suggest warm compresses , soft diet, massage and ibuprofen. She will follow-up in 6 weeks Chronic rhinitis 0219544 6 J31.0 Abnormal a uditory perception 07931743 H93.292 [id number] BONNIE ELLIOTT MA, CCC-A [facility] [address] [address] 06/26/2024 15:24:19 06/29/2024 07:55:13 Sensorineural hearing loss of bilateral ears 096390365 H90.3 Audiologic al evaluation results: Right ear: Normal hearing thru 1500Hz sloping to a mild-moder ate SNHL with excellent word recognitio n. Left ear: Normal hearing thru 1000Hz sloping to a mild -moderate SNHL with excellent word recognitio n. Tympanomet ry: Right Ear:Type A Left Ear:Type Ad [id number] IVETH MCWILLIAMS MD [facility] [address] [address] 07/28/2024 08:23:08 07/28/2024 08:58:40 Nasal obstruction 374940046 J34.89 Bilateral dermatochalasis of upper eyelids 8696853173 9021162 H02.831 H02.834 Stenosis o f nasal valve 0916306256 7048377 J34.8202 Health Concerns Section Related Observation LastModified by Organization Detai ls LastModified Time None Recorded Concern Status LastModified by Organization Details LastModified Time None Recorded Advance Directives Directive None Recorded Payers Insurance Date Sequence Insurance Name Policy Number Policy [place] Covered Member ID [place] Member ID Guarantor Name 12/15/2024 1 [place] B[place]: [employer] Elena Storey [id number] Elena Storey 12/15/2024 2 [place] [facility] Elena Storey [id number] Elena Storey Notes Date Note Type Note [...] bromide SNOT= 15Nose= 40 ARMANI MACDONALD MD [address] [place] [address], [phone], [facility] 06/26/2024 16:34:45 07/28/2024 text/html This is a 68-year-old woman who presents today for evaluation of nasal obstruction. She is here as a referral from Dr. Gary Mattson. She has had difficulty breathing through her mouth and nose for a long time. She feels like the obstruction is on both sides, but this also changes from [id number]. On a scale of 1 to 10, with 1 being the worst and 10 being the best, nasal breathing on each side is scored as follows: Right: 7/10 Left: 7/10 Associated symptoms: Nasal congestion, nasal pressure, nasal [...] is less light due to her eyelids. IVETH MCWILLIAMS MD [address] [place] [address], [place], [phone], [facility] - [facility] 07/28/2024 11:54:46 OBGyn Episode No OBEpisode recorded.
== END 2025-04-12 13:12 | disposition home or self-care (01) ==
LOC: HO.HPS 12:47
PROVIDERS: PCP General Practice; Visit Provider Nurse Practitioner Family
DX: J44.9 Chronic obstructive pulmonary disease, unspecified (principal); Z91.09 Other allergy status, other than to drugs and biological substances; F17.210 Nicotine dependence, cigarettes, uncomplicated; R91.8 Other nonspecific abnormal finding of lung field
CPT/HCPCS: 99214

== ENCOUNTER → 2025-04-12 12:46 | Outpatient (BNVA) | payer MEDICARE, MEDICAID, SELFPAY | PROVIDERS: PCP General Practice; Visit Provider Nurse Practitioner Family | DX: J44.89 Other specified chronic obstructive pulmonary disease (principal); Z91.09 Other allergy status, other than to drugs and biological substances; R91.8 Other nonspecific abnormal finding of lung field; F17.210 Nicotine dependence, cigarettes, uncomplicated; Z79.899 Other long term (current) drug therapy | CPT/HCPCS: 99212 ==

== ENCOUNTER → 2025-05-18 07:56 | Outpatient (REF) | payer MEDICARE, MEDICAID, SELFPAY ==
--- NOTE | 2025-05-18 08:00 | CA_ITS ---
Transthoracic Echocardiogram Patient (Last, First, Middle): Elena Storey E Gender: Female Date of : 1955 Age: 69 Procedure Date: 05/18/2025 Procedure Type: Transthoracic Echocardiogram Location: OP Height: 162.56 cm Weight: 77.11 kg BSA: 1.83 m2 Heart Rate: 73 bpm BP: 130 / 60 mmHg Personal Computer Specialist: MATT Referring MD: Serene Rose UX DESIGN LEAD Packaging Assembler: Red Casper MD Symptoms: R06.00 - Dyspnea, unspecified Study Quality: Fair ECG Rhythm: Sinus Conclusions: - 1. Normal LV ejection fraction of 60 65% with impaired relaxation filling pattern 2. [id number] aortic stenosis with mild aortic regurgitation 3. Upper limits of normal ascending aortic size 4. No gross pericardial effusion Findings Procedure Information The quality of the study was technically difficult. The study quality is limited by lung artifact. Left Ventricle Normal left ventricular size, thickness, and systolic function. The visually estimated ejection fraction is between 60-65%. There is paradoxical septal motion consistent with a left bundle branch block. Spectral Doppler is indicative of an impaired relaxation filling pattern. E/E prime ratio is between 8 and 15 consistent with indeterminate filling pressures. Right Ventricle Normal right ventricular cavity size and systolic function. Atria The left atrium is normal in size. There is lipomatous hypertrophy of the interatrial septum. There is no evidence of interatrial shunt. The right atrium is normal in size. Aortic Valve There is moderate calcification of the aortic valve. There is mild to moderate aortic valve stenosis. There is mild aortic valve regurgitation. Mitral Valve There is mild anterior mitral leaflet thickening. There is trace mitral valve regurgitation. There is no mitral valve stenosis. Pulmonic Valve The pulmonic valve was not well visualized. Tricuspid Valve Likely normal tricuspid valve structure and function. Tricuspid regurgitation envelope is inadequate for calculation of right ventricular systolic pressure. Normal right atrial pressure. Great Vessels The pulmonary artery was not well visualized. Small plaque is seen in the sino tubular ridge and arch. Venous The inferior vena cava is normal in size and collapses greater than 50% with inspiration. Pericardium/Pleural There is no evidence of pericardial effusion. Prior Study Comparison Changes noted compared to prior study dated: 06/22/2021. Aortic stenosis is marginally worse Measurements 2D Linear Measurements IVSd: 1.04 0.6-0.9/0.6-1.0 cm LVIDd: 4.40 3.9-5.3/4.2-5.9 cm LVIDd Index: 2.40 2.4-3.2/2.2-3.1 cm/m2 LVIDs: 3.04 2.0-3.6 cm LVPWd: 0.94 0.7-1.1 cm LA Diam: 3.50 2.7-3.8/3.0-4.0 cm LAIDs Index: 1.91 1.5-2.3 cm/m2 LV Mass: 180.86 67-162/88-224 g LV Mass Index: 98.83 43-95/49-115 g/m2 LVOT Diam: 2.10 3.0+(-)1.3 cm 2D Systolic Function EF 4C: 57.50 >55% EF 2C: 62.10 >55% EF BiP: 61.20 >55% Mitral Valve MV Pk E: 0.84 MV PK A: 1.02 MV Decel Time: 269.00 E/A: 0.80 E'Lateral: 5.66 E'Medial: 5.98 E/E' Med: 14.10 E/E' Lat: 14.90 PHT: 79.00 MVA PHT: 2.78 Decel Miner: 3.14 Aortic Valve AoV Pk Felix: 3.04 AoV Mn Felix: 1.98 AoV VTI: 0.58 AoV Pk Grad: 37.00 Aov Mn Grad: 18.00 RIGOBERTO Cont.VTI: 1.39 LVOT LVOT Pk Felix: 1.11 LVOT Mn Felix: 0.77 LVOT VTI: 0.23 LVOT Pk Grad: 5.00 LVOT Mn Grad: 3.00 LVOT Diam: 2.10 LVOT Area: 3.46 Diastolic Function MV Pk E: 0.84 MV Pk A: 1.02 E/A: 0.80 E'Medial: 5.98 E/E' Med: 14.10 E' Laterial: 5.66 E/E' Lat: 14.90 Right Ventricle TAPSE (mm): 20.70 TVS' Felix: 12.60 Tricuspid Valve RA Press: 3.00 Great Vessels Aorta Sinus of Valsalva: 3.30 2.0-3.5 cm Ao Asc: 3.60 2.1-3.4 cm Pulmonary Veins Pulm Vein S/D 1.30 Pulmonary Valve PV Pk Felix: 1.27 Peak PV Grad: 6.00 Updated in Other Vendor System with Status of Final Red Casper MD electronically signed on 05/18/2025 2:06:06 PM with status of Final
== END ==
LOC: HO.CARD 07:56
PROVIDERS: PCP General Practice; Visit Provider Nurse Practitioner Family
DX: R06.00 Dyspnea, unspecified (principal)
CPT/HCPCS: 93306

== ENCOUNTER → 2025-05-18 08:00 | Outpatient (BNV) | payer MEDICARE, MEDICAID, SELFPAY | PROVIDERS: PCP General Practice; Visit Provider Internal Medicine Cardiovascular Disease | DX: I35.2 Nonrheumatic aortic (valve) stenosis with insufficiency (principal); I35.8 Other nonrheumatic aortic valve disorders | CPT/HCPCS: 93306 ==

== ENCOUNTER 2025-07-26 08:51 | Outpatient (AMB) | payer MEDICARE, MEDICAID, SELFPAY ==
--- NOTE | 2025-07-26 08:57 | A.OFFVIS_ITS ---
Vital Signs 07/26/25 08:58 Height 5 ft 4 in Weight 167 lb 8.821 oz BMI 28.8 BP 132/78 Blood Pressure Location Lt brachial Position Sitting Pulse 76 Pulse Source Pulse Oximeter Pulse Oximetry (%) 95 Oxygen Delivery Method Room Air Intake Visit Reasons: COPD Allergies sulfamethoxazole (From BACTRIM DS) Allergy (Unknown, Verified 07/26/25 09:01) UNKNOWN trimethoprim (From BACTRIM DS) Allergy (Unknown, Verified 07/26/25 09:01) UNKNOWN HPI HPI COPD: Details: Elena is a pleasant 69 year old female, current 30 pack year smoker, with underlying severe COPD, HTN and hyperlipidemia. She reports moderate control with Trelegy, DuoNeb/Albuterol MDI, Xyzal and flutter valve. She reports product karishma cough with white sputum in the morning and dyspnea with moderate exertion. Denies wheezing or chest tightness. Since the last visit, she reports increasing activity and is motivated to continue. Unfortunately patient continues to smoke approximately 6 cigarettes per day and is not ready to quit at this time. She denies any visits to urgent care hospitalizations related to respiratory distress since the last visit. [facility] Medical History (Updated 04/12/25 @ 13:16 by Serene Rose NP) Nicotine dependence, cigarettes, uncomplicated Heart murmur Vitamin D deficiency Macular degeneration COPD (chronic obstructive pulmonary disease) HLD (hyperlipidemia) HTN (hypertension) Surgical History (Updated 10/30/22 @ 13:37 by Nohelia Colvin PA-C) History of endoscopy Family History (Updated 11/02/22 @ 13:33 by Nohelia Colvin PA-C) Father Lung cancer Social History (Updated 07/26/25 @ 09:01 by Francesca Mcginnis CMA) Patient Tobacco Use Status: Current everyday Tobacco user Tobacco use type: Cigarette Cigarettes Per Day: 6 Years Smoked: onset 17yo, 1/2ppd-1ppd x 51yrs, 30phy Review of Systems Const Denies chills, Denies excessive sweating, Denies fever(s) and Denies night swea ts Eyes Denies dry eyes and Denies irritation ENT Reports Normal hearing present and Denies sore throat Card Denies chest pain, Denies chest pain at rest, Denies chest pain with activity, Denies claudication, Denies leg edema, Reports dyspnea on exertion, Denies orthopnea and Denies paroxysmal nocturnal dyspnea Resp Denies change in phlegm color, Denies chest congestion, Reports cough, Denies hemoptysis, Denies excessive phlegm production, Denies pain on inspiration, Denies pain with cough, Reports dyspnea on exertion and Denies stridor Musc Denies myalgias Neuro Reports Normal hearing present Endo Denies excessive sweating Sid/Lymph Denies lymphadenopathy Aller/Immun Denies seasonal rhinorrhea Physical Exam Vital Signs: Last Vital Signs Pulse 76 07/26/25 08:58 BP 132/78 07/26/25 08:58 Pulse Ox 95 07/26/25 08:58 Oxygen Delivery Method Room Air 07/26/25 08:58 BMI result Body Mass Index 28.8 Const General: cooperative, healthy appearing, comfortable, no acute distress, well developed and alert Orientation/consciousness: patient oriented x3 Limitations: no limitations HEENT Head: Yes normal to inspection, Yes normocephalic and Yes atraumatic Ears: hearing grossly normal bilaterally and external ears normal Eyes General: appearance normal, both eyes and all related structures Eyelids: Yes eyelids normal Sclerae: sclerae normal EOM: EOMs intact bilaterally Neck Neck: Yes normal visual inspection and Yes no lymphadenopathy Lymphatic: no lymphadenopathy noted Chest Chest palpation & inspection: normal inspection of the chest Resp Effort & Inspection: normal respiratory effort, able to speak in complete sentences, no audible wheezes, no cough, no stridor, not tachypneic, no tripod positioning and no use of accessory muscles Auscultation: diminished lung sounds Cardio Jugular venous distension: no JVD Rate: regular rate Rhythm: regular rhythm Heart sounds: Murmur heart sound present Skin Other: warm, dry General skin exam: no rashes or lesions noted Neuro General: patient oriented x3 Cranial nerves: Yes Normal hearing present Cognition (Neuro): normal cognition Gait exam (Neuro): Normal gait present Extrem General: Yes normal to inspection, Yes capillary refill normal, Yes no clubbing, cyanosis or edema and Yes no pedal edema Psych Appearance: grossly normal and well kempt Speech and movement: Normal speech and movement present and Clear speech present Affect: normal affect Attitude: cooperative Thought process: Normal thought process present Thought content: Normal thought content present Insight: Good insight present (Psych) Judgement: Good judgement present (Psych) Assessment & Plan Assessment & Plan (1) COPD (chronic obstructive pulmonary disease): Code(s): J44.9 - Chronic obstructive pulmonary disease, unspecified Category: Medical (2) Environmental allergies: Code(s): Z91.09 - Other allergy status, other than to drugs and biological substances Category: Medical (3) Nicotine dependence, cigarettes, uncomplicated: Comment: (current smoker - onset 17yo, 1/2ppd-1ppd x 51yrs, 30phy, +fam hx lung ca) Code(s): F17.210 - Nicotine dependence, cigarettes, uncomplicated Category: Medical (4) Multiple pulmonary nodules: Code(s): R91.8 - Other nonspecific abnormal finding of lung field Category: Medical Plan Advised to continue Trelegy and DuoNeb as well as flutter valve. Reviewed recent echo which revealed mild progression of aortic stenosis now mild to moderate. Will repeat echo in one year if continues to progress will refer to cardiology. Will also perform 6MWT at next visit. Smoking cessation reviewed, patient wo rking towards quitting however not ready to completely stop at this time. Patient with multiple stable pulmonary nodules, last LDCT 11/2024 RADS 2 and will have repeat imaging in one year. All questions were answered and patient is in agreement of plan. Will follow up in 3 months or sooner if needed. Orders: Orders CA echo transthoracic complete 10 Months R06.00 - Dyspnea, unspecified Medications: Refilled buvzwstprqt-cjocdwade-lkxtlhjw 200-62.5-25 mcg (Trelegy Ellipta) 1 inh inhalation DAILY 60 ea 6RF J44.9 - Chronic obstructive pulmonary disease, unspecified ipratropium-albuterol 0.5 mg-3 mg(2.5 mg base)/3 mL 3 mL inhalation BID PRN 180 mL 6RF wheezing J44.9 - Chronic obstructive pulmonary disease, unspecified levocetirizine 5 mg PO DAILY 30 tabs 3RF Coding Level of Care Code Est Pt Level 4 (63234) Diagnoses COPD (chronic obstructive pulmonary disease) J44.9 Environmental allergies Z91.09 Nicotine dependence, cigarettes, uncomplicated F17.210 Multiple pulmonary nodules R91.8
[2025-07-26 08:58] VITALS: BP 132/78; PULSE 76; O2SAT 95; BMI 28.8
--- OUTSIDE RECORDS SUMMARY | 2025-07-26 09:28 | XMS_ITS | Encounter Summary ---
Author Organization [employer] Address [address] [facility] 7t [place] [address] Care Team Providers Care Lopper Name Role Phone Melisa Watkins MD Primary Care Provider [phone] Reason for Visit * Reason Comments Med Refill Encounter Details Date Type Department Care Team (Late st Contact Info) Description 06/04/2023 Refill [facility] [address] [place] [address] [phone] Pj Gibson MD [address] [place] [phone] Social History Tobacco Use Types Packs/Day Years [...] Care Team (Late st Contact Info) Description 07/30/2025 9:30 AM EDT Office Visit [facility] [address] [place] [phone] Melisa Watkins MD [address] [place] [address] [phone] documented as of this encounter Visit Diagnoses Not on filedocumented in this encounter Care Teams Lopper Relationship Specialty Start Date End Date Melisa Watkins MD [address] [place] [address] PCP - General Family Medicine 11/07/20 documented as of this encounter
--- OUTSIDE RECORDS SUMMARY | 2025-07-26 09:28 | XMS_ITS | Encounter Summary ---
Author Organization [employer] Address [address] [facility] [address] [place] [address] Care Team Providers Care Law Office Manager Name Role Phone Melisa Watkins MD Primary Care Provider [phone] Encounter Details Date Type Department Care Team (Late st Contact Info) Description 09/26/2022 Orders Only [facility] [address] [place], [place] [phone] Maria Del Rosario Solo LPN Social History [...] Description 07/30/2025 9:30 AM EDT Office Visit [facility] [address] [place] [address] Melisa Watkins MD [address] [place] [address] documented as of this encounter Visit Diagnoses Not on filedocumented in this encounter Care Teams Law Office Manager Relationship Specialty Start Date End Date Melisa Watkins MD [address] [place] [address] PCP - General Family Medicine 11/07/20 documented as of this encounter
--- OUTSIDE RECORDS SUMMARY | 2025-07-26 09:28 | XMS_ITS | Encounter Summary ---
Author Organization [employer] Address [address] [facility] [address] [place] [address] Care Team Providers Care Project Geologist Name Role Phone Melisa Watkins MD Primary Care Provider [phone] Encounter Details Date Type Department Care Team ([facility] st Contact Info) Description 04/01/2024 Orders Only [facility] [address] [place], [place] [phone] Melisa Watkins MD [address] [place], [place] [phone] Screening for cervical cancer (Primary Dx) Social [...] Description 07/30/2025 9:30 AM EDT Office Visit [facility] [address] [place] [address] Melisa Watkins MD [address] [place] [phone] documented as of this encounter Visit Diagnoses Diagnosis Screening for cervical cancer- Primary Screening for malignant neoplasm of the cervix documented in this encounter Care Teams Project Geologist Relationship Specialty Start Date End Date Melisa Watkins MD [address] [place] [phone] PCP - General Family Medicine 11/07/20 documented as of this encounter
--- OUTSIDE RECORDS SUMMARY | 2025-07-26 09:28 | XMS_ITS | Encounter Summary ---
Author Organization [employer] Address [address] [facility] [address] [place] [address] Care Team Providers Care Light Adjuster Name Role Phone Melisa Watkins MD Primary Care Provider [phone] Reason for Visit * Reason Comments Med Refill Encounter Details Date Type Department Care Team ([facility] Contact Info) Description 05/20/2024 Refill [facility] [address] [place], [place] [phone] Melisa Watkins MD [address] [place], [place] [phone] Social History Tobacco Use Types Packs/Day Years [...] Description 07/30/2025 9:30 AM EDT Office Visit [facility] [address] [place] [address] Melisa Watkins MD [address] [place] [address] documented as of this encounter Visit Diagnoses Not on filedocumented in this encounter Care Teams Light Adjuster Relationship Specialty Start Date End Date Melisa Watkins MD [address] [place] [phone] PCP - General Family Medicine 11/07/20 documented as of this encounter
--- OUTSIDE RECORDS SUMMARY | 2025-07-26 09:28 | XMS_ITS | Encounter Summary ---
Author Organization [employer] Address [address] [place] [address] 7[address] [place] [address] Care Team Providers Care Rn Endocrinology Name Role Phone Melisa Watkins MD Primary Care Provider [phone] Encounter Details Date Type Department Care Team (Late st Contact Info) Description 03/01/2023 Orders Only [facility] [address] [place] [address] [phone] Melisa Watkins MD [address] [place] [address] [phone] Chronic obstructive pulmonary disease, unspecified COPD type [...] Description 07/30/2025 9:30 AM EDT Office Visit [facility] [address] [place] [address] [phone] Melisa Watkins MD [address] [place] [address] [phone] documented as of this encounter Visit Diagnoses Diagnosis Chronic obstructive pulmonary disease, unspecified COPD type (CMS/HCC) (HCC)- Primary documented in this encounter Care Teams Rn Endocrinology Relationship Specialty Start Date End Date Melisa Watkins MD [address] [place] [phone] PCP - General Family Medicine 11/07/20 documented as of this encounter
--- OUTSIDE RECORDS SUMMARY | 2025-07-26 09:29 | XMS_ITS | Encounter Summary ---
Author Organization [employer] Address [address] [facility] [address] 7[address] [place] [address] Care Team Providers Care Tie Maker Name Role Phone Melisa Watkins MD Primary Care Provider [phone] Encounter Details Date Type Department Care Team ([facility] st Contact Info) Description 11/26/2023 Orders Only [facility] [address] [place] [address] Melisa Watkins MD [address] [place], [place] [phone] Social History Tobacco Use Types Packs/Day Years [...] the past 12 months, has t he [employer], [employer], oil or water company threatened to shut [...] Description 07/30/2025 9:30 AM EDT Office Visit [facility] [address] [place], [place] [phone] Melisa Watkins MD [address] [place] [address] documented as of this encounter Procedures Procedure Name Priority Date/Time Associated Diagnosis Comments LDCT LUNG SCREENING Routine 11/27/2023 1 1:34 AM EST documented in this encounter Results * CT Lung Screening Low dose (11/27/2023 11:34 AM EST) Anatomical Region Laterality Modality Lung Computed Tomogra phy 11/27/2023 11:3 4 AM EST Narrative 11/28/2023 3:57 PM EST [address] [address] [address] Scan Report Signed Patient: Elena Storey MR#: [id number] : 1955 Acct:[id number] Age/Sex: 67 / F ADM Date: 11/27/23 Loc: HO.CT Attending Dr: Nohelia Colvin PA-C Ordering Physician: Serene Rose NP Date of Service: 11/27/23 Procedure(s): CT lung screening Accession Number(s): [id number] cc: Melisa Watkins; Serene Rose LIVESTOCK RANCHER EXAMINATION: CT CHEST LOW-DOSE SCREENING WITHOUT CONTRAST [...] in OV> 11/28/23 1554 DD/ 1134 TD/TT: Railroad Supervisor Of Engines: Procedure Note Donotuseinterpreter, Image - 11/28/[address] [address] [address] Scan Report Signed Patient: Elena Storey EMR#: [id number] : 8Acct:[id number] Age/Sex: 67 / FADM Date: 11/27/23 Loc: HO.CT Attending Dr: Nohelia Colvin PA-C Ordering Physician: Serene Rose NP Date of Service: 11/27/23 Procedure(s): CT lung screening Accession Number(s): [id number] cc: Melisa Watkins; Serene Rose LIVESTOCK RANCHER EXAMINATION: CT CHEST LOW-DOSE SCREENING WITHOUT CONTRAST [...] in OV> 11/28/23 1554 DD/ 1134 TD/TT: Railroad Supervisor Of Engines: [facility] External Provider IMG CT PROCEDURES Final Result documented in this encounter Visit Diagnoses Not on filedocumented in this encounter Care Teams Tie Maker Relationship Specialty Start Date End Date Melisa Watkins MD [address] [place] [phone] PCP - General Family Medicine 11/07/20 documented as of this encounter
--- OUTSIDE RECORDS SUMMARY | 2025-07-26 09:29 | XMS_ITS | Clinical Summary ---
Author Organization [employer] Address [address] [place] [address] [address] [place] [address] Care Team Providers Care Financial Services Representative Name Role Phone Melisa Watkins MD Primary Care Provider [phone] Allergies Active Allergy Reactions Criticality Noted Date [...] nebulizer solutionIndicatio ns:Chronic obstructive pulmonary disease, unspecified (HCC) INHALE 1 AMPULE USING A NEBULIZER EVERY [...] DAILY NEEDED FOR WHEEZING 03/17/20 24 Active ibuprofen 800 MG tablet TAKE 1 TABLET BY MOUTH THREE TIMES DAILY NEEDED 90 tablet 1 10/09/19 25 Active simvastatin (Zocor) 20 MG tabletIndications :Other hyperlipidemia TAKE 1 TABLET BY MOUTH EVERY EVENING 90 tablet 3 12/09/19 25 Active cetirizine (ZyrTEC) 10 MG tablet TAKE 1 TABLET BY MOUTH EVERY DAY 90 tablet 3 01/20/20 25 Active omeprazole (PriLOSEC) [address] capsuleIndication s:Gastroesophagea l reflux disease without esophagitis TAKE 1 CAPSULE BY MOUTH EVERY DAY BEFORE BREAKFAST 90 capsule 3 06/09/20 25 Active simethicone (Mylicon) 80 MG chewable tablet CHEW AND SWALLOW 1 TABLET EVERY 6 HOURS NEEDED FOR GAS. 120 tablet 06/14/20 25 Active lisinopril 10 MG tablet TAKE 1 TABLET BY MOUTH EVERY DAY 90 tablet 3 07/12/20 25 Active D3 Super Strength 50 MCG (2000 UT) capsule TAKE 1 CAPSULE BY MOUTH EVERY DAY 90 capsule 3 07/12/20 25 Active lisinopril 10 MG tablet TAKE 1 TABLET BY MOUTH EVERY DAY 90 tablet 3 07/20/20 24 2024 Discontinued D3 Super Strength 50 MCG (2000 UT) capsule TAKE 1 CAPSULE BY MOUTH EVERY DAY 90 capsule 3 07/20/20 24 2024 Discontinued Active Problems Problem Noted [...] PM EDT): Refer to ENT COPD exacerbation ([facility]) 01/21/2023 Assessment & Plan (12/10/2024 11:08 AM [...] ER Medications (abx, steroid, Mucinex) sent to [facility] on [facility] due to weekend Assessment & Plan (01/21/2023 [...] Encounters Date Type Department Care Team Description 07/11/2025 Refill [facility] MED & PEDS [address] [place], [place] [phone] Melisa Watkins MD 06/14/2025 Refill [facility] MEDICINE [address] [place], [place] [phone] Melisa Watkins MD 06/08/2025 Refill [facility] MEDICINE [address] [place], [place] [phone] Melisa Watkins MD Gastroesophageal reflux disease without esophagitis from Last 3 Months Immunizations Immunization Administration [...] your housing situation today? I have alicia wie 07/21/[address] you li [...] 73 12/08/2024 11:47 AM EDT Temperature 36.9 C (98.5 F) 12/08/2024 11:47 AM EDT Respiratory Rate 17 12/08/2024 11:47 AM EDT Oxygen Saturation 95% 12/08/2024 11:47 AM EDT Inhaled Oxygen Concentration - - Weight 78.7 kg (173 lb 9.6 oz) 12/08/2024 11:47 AM EDT Height 163.8 cm (5' 4.5 ) 12/08/2024 11:47 AM ED T Body Mass Index 29.34 12/08/2024 11:47 AM EDT Plan of Treatment Upcoming Encounters Date Type Department Care Team (Late st Contact Info) Description 07/30/2025 9:30 AM EDT Office Visit [facility] MEDICINE [address] [place] [address] Melisa Watkins MD [address] [place] [address] Health Maintenance Due Date Last Done Comments CT Colonography 1957 Colonoscopy 1957 Colorectal Cancer Screening 1957 FIT DNA/Cologuard 1957 FIT 1957 FOBT 1957 Sigmoidoscopy 1957 Alcohol/Substance Use Screening 1969 Hepatitis C Screening 12/10/1975 Zoster Vaccines (1 of 2) 12/10/2007 RSV Patients and Patients Aged 60 years or older (1 - Risk 60-74 years 1-dose series) 2017 Depression Screening 01/22/2024 01/21/2023, 01/22/20 23 Influenza Vaccine (#1) 2025 , 08/02/2023, 08/16/2022, Additional history exists COVID-19 Vaccine ( season) 2025 12/08/2024, 02/08/2021, 01/11/2021 SDOH Screening 12/01/2025 12/01/2024 Tobacco Screening 12/08/2025 12/08/2024 Mammogram 02/11/2026 02/11/2025, 0411/2023, 01/17/2023, Additional history exists HPV/Cotest 03/31/2027 04/23/2017 Pap Smear 03/31/2027 03/31/2024, [...] Comments BI MAMMOGRAM SCREENING TOMOSYNTHESIS BILATERAL Routine 02/11/2025 8:15 AM EDT THINPREP IMAGING PAP REFL HPV MRNA(IF ASCUS,ASC-H,LSIL) Routine 03/31/2024 9:22 AM EDT LIPID PANEL, STANDARD Routine 01/20/2024 9:03 AM EDT Other hyperlipidemia ZZZ HISTORICAL HPV MRNA E6/E7 Routine 04/23/2017 10:30 AM EDT from Last 3 Months or Most Recently Relevant to Health Maintenance Results * BI Mammogram Screening Tomosynthesis Bilateral (02/11/2025 8:15 AM EDT) Anatomical Region Laterality Modality Breast Bilateral Mammography 02/11/2025 8:15 AM EDT Narrative 02/19/2025 5:36 PM EDT [facility]'[address] [place] [address] Mammography Report Signed Patient: Elena Storey MR#: [id number] : 1955 Acct:[id number] Age/Sex: 69 / F ADM Date: 02/11/25 Loc: .MAMMO Attending Dr: Melisa Watkins MD Ordering Physician: Melisa Watkins Results: 1Negative Date of Service: 02/11/25 Follow Up: 1 Year From Orig ina Mammogram Procedure(s): MM tomosynthesis screening BI Accession Number(s): [id number] cc: Melisa Watkins EXAMINATION: MM SCREENING DIGITAL BREAST TOMOSYNTHESIS, BILATERAL CLINICAL INFORMATION: Screening. Asymptomatic. COMPARISON: Mammography: Comparison is made with available priors TECHNIQUE: Digital breast mammography with tomosynthesis is performed in both the craniocaudal and mediolateral oblique views along with computer-aided detection (CAD). FINDINGS: There are scattered areas of fibroglandular density (ACR BI-RADS breast composition Category b). There are no significant masses, abnormal calcifications, or other abnormalities. MM/MM tomosynthesis screening BI IMPRESSION: No mammographic evidence of malignancy. ASSESSMENT: BI-RADS BI-RADS 1 - Negative RECOMMENDATION: Routine annual mammography screening. 1 year F/U This examination should not preclude the clinical evaluation of a suspicious palpable abnormality. This patient's information was entered into a reminder system with a target due date for their next mammogram. Electronically signed by: Ambreen Lopez DO 02/19/2025 05:34 PM EDT RP Dictated By: Ambreen Lopez DO Signed By: <Electronically signed by Ambreen Lopez DO in OV> 02/19/25 1734 DD/ TD/TT: 02/11/25 0833 Director Of Plant Operations: Procedure Note Donotuseinterpreter, Image - [facility]/19/[facility] [address] [place] [address] Mammography Report Signed Patient: Elena Storey EMR#: [id number] : 8Acct:[id number] Age/Sex: 69 / FADM Date: 02/11/25 Loc: .MAMMO Attending Dr: Melisa Watkins MD Ordering Physician: Red Watkinsults: 1Negative Date of Service: 02/11/25Follow Up: 1 Year From [facility] Mammogram Procedure(s): MM tomosynthesis screening BI Accession Number(s): [id number] cc: Melisa Watkins EXAMINATION: MM SCREENING DIGITAL BREAST TOMOSYNTHESIS, BILATERAL CLINICAL INFORMATION: Screening. Asymptomatic. COMPARISON: Mammography: Comparison is made with available priors TECHNIQUE: Digital breast mammography with tomosynthesis is performed in both the craniocaudal and mediolateral oblique views along with computer-aided detection (CAD). FINDINGS: There are scattered areas of fibroglandular density (ACR BI-RADS breast composition Category b). There are no significant masses, abnormal calcifications, or other abnormalities. MM/MM tomosynthesis screening BI IMPRESSION: No mammographic evidence of malignancy. ASSESSMENT: BI-RADS BI-RADS 1 - Negative RECOMMENDATION: Routine annual mammography screening. 1 year F/U This examination should not preclude the clinical evaluation of a suspicious palpable abnormality. This patient's information was entered into a reminder system with a target due date for their next mammogram. Electronically signed by: Ambreen Lopez DO 02/19/2025 05:34 PM EDT RP Dictated By: Ambreen Lopez DO Signed By: <Electronically signed by Ambreen Lopez DO in OV> 02/19/25 1734 DD/ 0815 TD/TT: 02/11/25 0833 Director Of Plant Operations: Melisa Watkins MD IM BI PROCEDURES Final Result * ThinPrep?? Imaging Pap Refl HPV mRNA(if ASCUS,ASC-H,LSIL,HSIL,EVIE)Refl Genotype (03/31/2024 9:22 AM EDT) HPV nRNA E6/E7 [facility] HPV 16,18/45 [facility] SOURCE: SEE NOTE [facility] Comment:None given Report Status: [facility] Clinical Information: SEE NOTE [facility] Comment:None given LMP: SEE NOTE [facility] Comment:NONE GIVEN Prev. PAP: SEE NOTE [facility] Comment:NONE GIVEN Prev. BX: SEE NOTE [facility] Comment:NONE GIVEN Statement Of Adequacy: SEE NOTE [facility] Comment:Satisfactory for karen luation.Endocervical/transformation zone componentpresent. General Categorization: [facility] Interpretation/Result: SEE NOTE [facility] Comment:Cytology Results: Ne gative for intraepitheliallesion or malignancy. Cytology Comment SEE NOTE [facility] Comment:This Pap test has be en evaluated with computerassisted technology. Motor Vehicle Field Representative: SEE NOTE [facility] Comment:WAC, CT(ASCP)CT scre ening location: [place] [address] Review Motor Vehicle Field Representative: [facility] Pathologist [facility] PAP Infection [facility] See Note SEE NOTE [facility] Comment:EXPLANATORY NOTE:The Pap is a screening test for cervical cancer. It isnot a diagnostic test and is subject to false negativeand false positive results. It is most reliable when asatisfactory sample, regularly obtained, is submittedwith relevant clinical findings and history, and whenthe Pap result is evaluated along with historic andcurrent clinical information.THIS TEST WAS PERFORMED AT:[facility] [place] [id number] NAPOLES MD 03/31/2024 9:22 AM EDT 03/31/2024 1:00 PM EDT Narrative [facility] - 04/07/2024 2:32 PM EDT SEE SCANNED RESULTS IN EMR us Melisa Watkins MD LAB CYTOLOGY ORDERABLES Final Result [facility] [address] [place] [address] [phone] * (ABNORMAL) Lipid Panel, Standard (01/20/2024 9:03 AM EDT) Triglycerides 137 <150 mg/dL [facility] Comment:Desirable Triglyceri de: less than 150 mg/dLBorderline High Triglyceride 150-199 mg/dLHigh Triglyceride: 200-499 mg/dLVery High Triglyceride: greater than or equal to 5OO mg/dL Cholesterol 202(H) <200 mg/dL [facility] Comment:Desirable Cholestero l: less than 200 mg/dLBorderline High Cholesterol: 200-239 mg/dLHigh Cholesterol: greater than 239 mg/dL LDL Cholesterol Calculated 123(H) <100 mg/dL [facility] Comment:Desirable LDL: less than 100 mg/dLNear Optimal/Above Optimal LDL: 110- 129 mg/dLBorderline High LDL: 130-159 mg/dLHigh LDL: 160-189 mg/dLVery High LDL: greater than or equal to 190 mg/dL HDL Cholesterol 52 >40 mg/dL [facility] Comment:Desirable HDL: great er than 40 mg/dL Note: This HDL assay may give artificially low results in patients with liver disease. Blood Venous blood specimen / Unknown 01/20/2024 9:03 AM EDT 01/20/2024 11:31 AM EDT us Melisa Watkins MD LAB BLOOD ORDERABLES Final Res ult Performing Organization Address [facility]/ZIP Co de Phone Number [facility] [address] [place] [address] [phone] * HPV mRNA E6/E7 (04/23/2017 10:30 AM EDT) Pathologist [facility] HPV mRNA E6/E7 Not Detected NOT DETECTED [facility] Comment: This test was performed using the APTIMA(R) HPV Assay ([employer] This assay detects E6/E7 viral messenger RNA (mRNA) from 14 high-risk HPV types (16,18,31,33,35,39,45,51, 52,56,58,59,66,68). For additional information please refer to: http://education.[employer]/faq/TYR958f7 (This link is being provided for informational/ educational purposes only.) Test Performed by [facility], [address] [place] [address] Shmuel Fuentes M.D., Ph.D., Director of Laboratories , [facility] [id number] Please note: Effective 06/11/2016, HPV testing will be performed using [employer]'s APTIMA test which targets mRNA. Detecting mRNA instead of DNA, as in older methods, offers significant improvements in specificity. 04/23/2017 10:3 0 AM EDT us Desiree Baltazar NP HISTORICAL/NON ORDERABLE LABS Fi nal Result Performing Organization Address City/[facility]/ZIP Co de Phone Number [facility] [address] [place] [address], from Last 3 Months or Most Recently Relevant to Health Maintenance Insurance [facility] STANDARD MEDICARE Care Teams Financial Services Representative Relationship Specialty Start Date End Date Melisa Watkins MD [address] [place] [address] PCP - General Family Medicine 11/07/20
--- OUTSIDE RECORDS SUMMARY | 2025-07-26 09:29 | XMS_ITS | Encounter Summary ---
Author Organization [employer] Address [address] [facility] [address] [place] [address] Care Team Providers Care Chucking And Boring Machine Operator Name Role Phone Melisa Watkins MD Primary Care Provider [phone] Encounter Details Date Type Department Care Team (Late st Contact Info) Description 12/12/2022 Orders Only [facility] MED & PEDS [address] [place], [place] [phone] Maria Del Rosario Solo LPN Social History [...] Description 07/30/2025 9:30 AM EDT Office Visit [facility] MEDICINE [address] [place] [address] Melisa Watkins MD [address] [place] [address] documented as of this encounter Visit Diagnoses Not on filedocumented in this encounter Care Teams Chucking And Boring Machine Operator Relationship Specialty Start Date End Date Melisa Watkins MD [address] [place] [address] PCP - General Family Medicine 11/07/20 documented as of this encounter
--- OUTSIDE RECORDS SUMMARY | 2025-07-26 09:29 | XMS_ITS | Data Portability ---
Author Organization [place] - [facility], Allergy Address [address] [address] Care Team Providers Care Ocular Care Technologist Name Role Phone JENNIFER SALDAÑA Referring Provider JENNIFER SALDAÑA Primary Care Provider Assessment Encounter [...] Details Recorded Time Otalgia of left ear 6317690851 Active 2023 ARMANI PATE MD [address] [place] [address], [phone], [facility] 4 14:48:26 Chronic rhinitis 25577023 Active 2023 ARMANI PATE MD [address] [place] [address], [phone], [facility] 4 14:48:31 Abnormal auditory perception 94215103 Active 2023 ARMANI PATE MD [address] [place] [address], [phone], [facility] 4 14:48:44 Sensorineur al hearing loss of bilateral ears 024523146 Active 2023 BONNIE ELLIOTT [place], CCC-A [address] [facility], [place], [address], [facility] - [facility] 4 15:25:11 Nasal obstruction 781357557 Active 2023 IVETH MCWILLIAMS MD [address] [facility] [place], [place], [phone], [facility] - [facility] 4 11:50:55 Incompetenc e of nasal valve 145859100 Active 2023 IVETH MCWILLIAMS MD [address] [facility] [place], [place], [phone], [place] - [facility] 4 11:51:01 Stenosis of nasal valve 1692506259853 4106 Active 2023 IVETH MCWILLIAMS MD [address] [facility],[address], [place], [address], 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 - [facility] 4 11:52:24 Problem Notes None recorded. Procedures Surgical History Date Name Laterality Status Provider Name and Address Organization Details Recorded Time Nasal Endoscopy completed IVETH MCWILLIAMS MD [address] [facility],[address], [address], [facility] 07/28/2024 11:37:39 Comp Audio with Tymps - 11231 & 11322 completed BONNIE ELLIOTT [place], JAY-A [address] [facility],[address], [address], [facility] - [facility] 06/26/2024 15:25:00 Imaging Results None recorded. Procedure Notes None recorded. Medical Equipment None Reported. Allergies Allergen ID Allergen Name Allergen Category Reaction Reaction Severity Criticality Documentation Date Start Date Code Code System Note Provider Name and Address Organization Details Recorded Time 047342 Substance with sulfonami de structure and antibacte rial mechanism of action (substanc e) medicatio n Not available Not available Not available 06/26/2024 34203 8003 SNOMED Radha rios [place] - [facility] 4 14:30:21 Medications Name Sig Start Date [...] bromide 21 mcg (0.03 %) nasal spray Bagdad 2 sprays twice a day by intranasa [...] Details Last Updated DateTime 06/26/2024 164.47 cm 24965.74 g Radha Edmondson [facility] 06/26/2024 14:34:56 Date Recorded Body height Body weight Provider Name and Address Organization Details Last Updated DateTime 07/28/2024 164.47 cm 36043.74 g Radha Goetz [place] - [facility] 07/28/2024 08:28:02 Social History Question Answer Notes LastModified by Organizat ion Details LastModified Time Tobacco Smoking Status Current Every Day Smoker Radha rios [place] - [facility] 06/26/2024 14:32:27 What Is Your Current Pack Years? 20-29packyear s chreibstein Information not available 06/26/2024 How Many Years Have You Smoked Tobacco? 50 jschreibstein Information not available 06/26/2024 Sex: Unknown Functional Status Question Answer Note LastModified by Organizat ion Details LastModified Time What is your level of alcohol consumption? Occasional [facility] not available 06/26/2024 Mental Status None recorded. Family History Nothing Reported. Medical History Condition Response Hyperlipidemia Y Hypertension Y COPD Y Gynecological HistoryNo gynecological history recorded. Obstetrics History GPAL:G 0 P 0 0 0 0 Past Encounters Encounter ID Performer Location Encounter Start Date Encounter Closed Date Diagnosis/Indication Diagnosis SNOMED-CT Code Diagnosis ICD10 Code Diagnosis IMO Codes Diagnosis Note [id number] ARMANI ACUNA MD [facility] [address] [address] 06/26/2024 14:17:11 06/29/2024 07:54:19 Otalgia of left ear 3600485842 H92.02 no evidence no evidence of middle ear fluid. Left TMJ is tender. . If she has persistent symptoms consider fiberoptic laryngosco py. In the meantime suggest warm compresses , soft diet, massage and ibuprofen. She will follow-up in 6 weeks Chronic rhinitis 0681154 6 J31.0 Abnormal a uditory perception 47456900 H93.292 [id number] BONNIE ELLIOTT [place], [facility] [address] [address] 06/26/2024 15:24:19 06/29/2024 07:55:13 Sensorineural hearing loss of bilateral ears 964887881 H90.3 Audiologic al evaluation results: Right ear: Normal hearing thru 1500Hz sloping to a mild-moder ate SNHL with excellent word recognitio n. Left ear: Normal hearing thru 1000Hz sloping to a mild -moderate SNHL with excellent word recognitio n. Tympanomet ry: Right Ear:Type A Left Ear:Type Ad [id number] IVETH MCWILLIAMS MD [facility] [address] [address] 07/28/2024 08:23:08 07/28/2024 08:58:40 Nasal obstruction 538884339 J34.89 Bilateral dermatochalasis of upper eyelids 7513048479 9153791 H02.831 H02.834 Stenosis o f nasal valve 2265220669 7505341 J34.8202 Health Concerns Section Related Observation LastModified by Organization Detai ls LastModified Time None Recorded Concern Status LastModified by Organization Details LastModified Time None Recorded Advance Directives Directive None Recorded Payers Insurance Date Sequence Insurance Name Policy Number Policy [place] Covered Member ID [place] Member ID Guarantor Name 12/15/2024 1 [place]IC[place] B-[place]: [employer] Elena Storey [id number] Elena Storey 12/15/2024 2 [place] [facility] Elena Storey [id number] Elena Storey Notes Date Note Type Note [...] bromide SNOT= 15Nose= 40 ARMANI MACDONALD MD [address] [place] [address], [phone], [facility] - [facility] 06/26/2024 16:34:45 07/28/2024 text/html ROS as noted in the HPI This is a 68-year-old woman who presents today for evaluation of nasal obstruction. She is here as a referral from Dr. Gary Mattson. She has had difficulty breathing through her mouth and nose for a long time. She feels like the obstruction is on both sides, but this also changes from [id number]. On a scale of 1 to 10, [...] due to her eyelids. IVETH MCWILLIAMS MD [address] [place] [address], [place], [address], [facility] - [facility] 07/28/2024 11:54:46 OBGyn Episode No OBEpisode recorded.
--- OUTSIDE RECORDS SUMMARY | 2025-07-26 09:29 | XMS_ITS | Encounter Summary ---
Author Organization [employer] Address [address] [place] [address] Care Team Providers Care Assistant Counsel Name Role Phone Melisa Watkins MD Primary Care Provider [phone] Encounter Details Date Type Department Care Team (Late st Contact Info) Description 01/17/2023 Orders Only [facility] [address] [place], [place] [phone] Maria Del Rosario Solo LPN Social History [...] Description 07/30/2025 9:30 AM EDT Office Visit [facility] [address] [place] [address] Melisa Watkins MD [address] [place] [address] documented as of this encounter Procedures Procedure Name Priority Date/Time Associated Diagnosis Comments BI MAMMOGRAM SCREENING TOMOSYNTHESIS BILATERAL Routine 01/17/2023 8:11 AM EDT documented in this encounter Results * BI Mammogram Screening Tomosynthesis Bilateral (01/17/2023 8:11 AM EDT) Anatomical Region Laterality Modality Breast Bilateral Mammography 01/17/2023 8:11 AM EDT Narrative 01/18/2023 9:47 AM EDT [address] [place] [address] Mammography Report Signed Patient: Elena Storey MR#: [id number] : 1955 Acct:[id number] Age/Sex: 67 / F ADM Date: 01/17/23 Loc: HO.MAMMO Attending Dr: Melisa Watkins MD Ordering Physician: Melisa Watkins Results: 1Negative Date of Service: 01/17/23 Follow Up: 1 Year From Orig inal Mammogram Procedure(s): MM tomosynthesis screening BI Accession Number(s): [id number] cc: Melisa Watkins EXAMINATION: MM SCREENING DIGITAL [...] Tanner MD in OV> 01/18/23 0944 DD/ 0 TD/TT: Senior Net Software Engineer: SK Procedure Note Donotuseinterpreter, Image - 03/28/[address] [place] [address] Mammography Report Signed Patient: Elena Storey EMR#: [id number] : 8Acct:[id number] Age/Sex: 67 / FADM Date: 01/17/23 Loc: HO.MAMMO Attending Dr: Melisa Watkins MD Ordering Physician: Red Watkinsults: 1Negative Date of Service: 01/17/23Follow Up: 1 Year From Orig inal Mammogram Procedure(s): MM tomosynthesis screening BI Accession Number(s): [id number] cc: Melisa Watkins EXAMINATION: MM SCREENING DIGITAL [...] in OV> 01/18/23 0944 DD/ 0811 TD/TT: Senior Net Software Engineer: VASQUEZ [facility] External Provider IMG BI PROCEDURES Edited Result - Final documented in this encounter Visit Diagnoses Not on filedocumented in this encounter Care Teams Assistant Counsel Relationship Specialty Start Date End Date Melisa Watkins MD [address] [place] [phone] PCP - General Family Medicine 11/07/20 documented as of this encounter
--- OUTSIDE RECORDS SUMMARY | 2025-07-26 09:29 | XMS_ITS | Encounter Summary ---
Author Organization [facility] [facility] Address [address] [place] [address] [address] [place] [address] Care Team Providers Care Physical Anthropologist Name Role Phone Melisa Watkins MD Primary Care Provider [phone] Encounter Details Date Type Department Care Team (Late st Contact Info) Description 12/28/2022 Orders Only [facility] [address] [place] [phone] Melisa Watkins MD [address] [place] [phone] Social History Tobacco Use Types Packs/Day Years [...] Description 07/30/2025 9:30 AM EDT Office Visit [facility] [address] [place] [phone] Melisa Watkins MD [address] [place] [phone] documented as of this encounter Visit Diagnoses Not on filedocumented in this encounter Care Teams Physical Anthropologist Relationship Specialty Start Date End Date Melisa Watkins MD [address] [place] [address] [phone] PCP - General Family Medicine 11/07/20 documented as of this encounter
== END 2025-07-26 09:28 | disposition home or self-care (01) ==
LOC: HO.HPS 08:52
PROVIDERS: PCP General Practice; Visit Provider Nurse Practitioner Family
DX: J44.9 Chronic obstructive pulmonary disease, unspecified (principal); Z91.09 Other allergy status, other than to drugs and biological substances; F17.210 Nicotine dependence, cigarettes, uncomplicated; R91.8 Other nonspecific abnormal finding of lung field
CPT/HCPCS: 99214

== ENCOUNTER → 2025-07-26 08:51 | Outpatient (BNVA) | payer MEDICARE, MEDICAID, SELFPAY | PROVIDERS: PCP General Practice; Visit Provider Nurse Practitioner Family | DX: J44.9 Chronic obstructive pulmonary disease, unspecified (principal); Z91.09 Other allergy status, other than to drugs and biological substances; F17.210 Nicotine dependence, cigarettes, uncomplicated; R91.8 Other nonspecific abnormal finding of lung field | CPT/HCPCS: 99212 ==